=== PATIENT | female | born 1995 | race Caucasian/White ===

== ENCOUNTER 2020-01-05 13:14 | Emergency (ER) | payer SELFPAY ==
--- NOTE | 2020-01-05 13:20 | NUR ---
At [facility] window, pt asked, "I'm not being admitted to the emergency room, right?" We informed her that this was the emergency room. She stated that she is supposed to go to clinic. Pt lwbs.
--- OUTSIDE RECORDS SUMMARY | 2020-01-05 14:56 | XMS REPORT ---
Author Author Dash Rouse Doctor Organization [facility] Address Unknown Phone Unavailable Care Team Providers Care Fabricator [employer] Name Role Phone Migration, Doctor Unavailable Unavailable PROBLEMS Type Condition ICD9-CM Code EAW46-BT Code Onset Dates Condition S tatus SNOMED Code Problem Obsessive-compulsive behavior R46.81 Active 55054081 Problem Functional diarrhea K59.1 Active 40840951 Problem Bilious vomiting with nausea R11.14 A ctive 02789868 Problem Depressive disorder F32.9 Active 10459054 Problem Anxiety F41.9 Active 65073701 Problem Mild intermittent asthma, unspecified whether complicated J45.20 Active 759987864 Problem Dysthymia F34.1 Active 20891158 Problem Anxiety disorder, unspecified F41.9 Active 438024548 Problem Headache associated with hormonal factors G44.89 Active 89138121 Problem Constipation K59.00 Active 0226827 8 ALLERGIES No Information ENCOUNTERS Encounter Location Date Diagnosis [facility] [address] [facility] [id number] [address] [place] [address] December, [address] [facility] [id number], [place] [address] December, [facility] [address] [facility] [id number] [address] [place] [address] Nov, Encounter for supervision of other normal in first trimester Z34.[address] [id number] [id number] Nov, [facility] [address] [facility] [id number] [address] [place] [address] Nov, Encounter for supervision of other normal in first trimester Z34.81 [facility] [address] [facility] [id number] [address] [place] [address] Oct, Encounter for supervision of other normal in first trimester Z34.81 and Depressive disorder F32.9 [facility] [address] [facility] [id number] [address] [place] [address] Jul, Mild intermittent asthma, un specified whether complicated J45.20 and Anxiety F41.9 [facility] [place] [address] [facility] [id number] [place] [id number] Apr, Depressive disorder F32.9 [facility] [place] [address] [facility] [id number] [place] [id number] Mar, [facility] [place] [address] [facility] [id number] [place] [id number] Feb, Urinary tract infection, site not specif ied N39.0 ; Hematuria, unspecified R31.9 and Dysuria R30.0 [facility] [place] [address] [facility] [id number] [place] [id number] Jan, Depressive disorder F32.9 and Anxiety di sorder, unspecified F41.9 [facility] [id number] [place] [address], [place] [id number] Nov, [facility] [place] [address] [facility] [id number] [place] [id number] Aug, Constipation K59.00 and Vaginitis N76.0 [facility] [address] [id number] [place] [id number] Jul, Diarrhea, unspecified type R19.7 [place] [id number] [place] [address], [place] [id number] Apr, Positive test Z32.01 [facility] [id number] [place] [address], [place] [id number] Mar, Concern about sexually transmitted disea se in female without diagnosis Z71.1 ; Vaginal lesion N89.8 and Vaginal candidiasis B37.3 [facility] [place] [address] [facility] [id number] [place] [id number] Jan, Headache associated with hormonal factor s G44.89 and History of unprotected sex Z72.51 [facility] [address] [id number] [place] [id number] 29 Mar, 2018 Acute left flank pain R10.9 ; Vaginal di scharge N89.8 ; Acute vaginitis N76.0 and Other specified bacterial agents as the cause of diseases classified elsewhere B96.89 [place] [id number] [place] [address], [place] [id number] Sep, Influenza J11.[address] [place] [address], [place] [id number] Feb, [place] [id number] [place] [address], [place] [id number] Feb, STD exposure Z20.2 ; Vaginal discharge N 89.8 ; GBS bacteriuria R82.71 ; Non- intractable vomiting with nausea, unspecified vomiting type R11.2 ; Anxiety disorder, unspecified F41.9 ; Reactive depression F32.9 ; Functional diarrhea K59.1 and Acute vaginitis N76.0 [place] [id number] [place] [address], [place] [id number] Jan, STD exposure Z20.2 and Dysthymia F34.1 [place] [id number] [place] [address], [place] [id number] Nov, Recent major surgery Z98.890 ; Pain R52 ; Constipation by delayed colonic transit K59.01 ; Anxiety F41.9 and Obsessive-compulsive behavior R46.81 [place] [id number] [place] [address], [place] [id number] Nov, [place] [id number] [place] [address], [place] [id number] Oct, Diarrhea, unspecified type R19.7 ; High risk sexual behavior Z72.51 ; Encounter for IUD removal Z30.432 ; STD exposure Z20.2 and Trichomoniasis A59.[address] [place] [address], [place] [id number] Oct, Dysuria R30.0 [place] [id number] [place] [address], [place] [id number] Oct, Dysuria R30.0 and Fever, unspecified R50 .9 [place] [id number] [place] [address], [place] [id number] 08 Sep, 2016 Stomach pain R10.9 ; Bilious vomiting wi th nausea R11.14 ; Functional diarrhea K59.1 ; Anxiety F41.9 ; Obsessive-compulsive behavior R46.81 and Poor fluid intake R63.8 [facility] [address] [facility] [id number] [place] [id number] Aug, [facility] [address] [id number] [place] [id number] Aug, Stomach pain R10.9 ; Bilious vomiting wi th nausea R11.14 ; Functional diarrhea K59.1 ; Anxiety F41.9 ; Obsessive-compulsive behavior R46.81 and Poor fluid intake R63.8 [facility] [address] [id number] [place] [id number] Jul, Vaginal discharge N89.8 and High risk se xual behavior Z72.51 [facility] [id number] [place] [address], [place] [id number] Mar, [facility] [address], [place] [id number] Mar, test negative Z32.02 [facility] [address] [id number] [place] [id number] Mar, Urinary tract infection, site not specif ied N39.0 [facility] [address] [id number] [place] [id number] December, Seasonal allergic reaction J30.2 and Cou gh R05 [place] [id number] [place] [address], [place] [id number] May, Bronchitis J40 ; Mild intermittent asthm a with acute exacerbation J45.21 and Reflux gastritis K29.60 [facility] [address] [id number] [place] [id number] May, [place] [address] [id number] [place] [address], [place] [id number] May, CAP (community acquired pneumonia) J18.9 [facility] [address] [id number] [place] [id number] Apr, Encounter for PPD test V74.1 [facility] [place] [address] [id number] [place] [id number] Apr, Encounter for PPD test V74.1 [facility] [place] [address] [id number] [place] [id number] Feb, Dysuria 788.1 and Bronchitis 490 [facility] [address] [facility] [id number] [address] [place] [address], [place] [address] Nov, [facility] [address] [id number] [address] [place] [address] Nov, [facility] [place] [address] [id number] [place] [id number] Sep, [facility] [address] [facility] [id number] [address] [place] [address], [place] [address] Sep, [facility] [address] [facility] [id number] [address] [place] [address], [place] [address] Jun, [facility] [place] [address] [id number] [place] [id number] Jun, [facility] [address] [facility] [id number] [address] [place] [address], [place] [address] Apr, [facility] [place] [address] [id number] [place] [id number] Apr, [facility] [address] [facility] [id number] [address] [place] [address], [place] [address] Apr, [facility] [place] [address] [id number] [place] [id number] Mar, [facility] [address] [facility] [id number] [address] [place] [address], [place] [address] Mar, [facility] [place] [address] [id number] [place] [id number] Feb, [facility] [address] [facility] [id number] [address] [place] [address], [place] [address] Feb, [facility] [address] [facility] [id number] [address] [place] [address], [place] [address] December, [facility] [address] [id number] [address] [place] [address], [place] [address] Nov, [facility] [place] [address] [id number] [place] [id number] Nov, [facility] [address] [id number] [address] [place] [address], [place] [address] Nov, [facility] [place] [address] [id number] [place] [id number] Sep, [facility] [address] [id number] [address] [place] [address], [place] [address] Sep, [facility] [address] [facility] [id number] [address] [place] [address], [place] [address] Sep, [facility] [address] [facility] [id number] [address] [place] [address], [place] [address] Sep, [facility] [place] [address] [id number] [place] [id number] Sep, [facility] [address] [facility] [id number] [address] [place] [address], [place] [address] Sep, [facility] [address] [facility] [id number] [address] [place] [address], [place] [address] May, [facility] [place] [address] [id number] [place] [id number] May, [facility] [address] [facility] [id number] [address] [place] [address], [place] [address] May, [facility] [place] [address] [id number] [place] [id number] Apr, [facility] [address] [id number] [address] [place] [address], [place] [address] Feb, [facility] [place] [address] [id number] [place] [id number] Feb, [facility] [place] [address] [id number] [place] [id number] Jul, [facility] [address] [facility] [id number] [place] [address] Jul, [facility] [address] [facility] [id number] [place] [id number] Jul, [facility] [address] [facility] [id number] [address] [address] Jul, [facility] [address] [facility] [id number] [place], [place] [id number] Mar, [facility] [address] [facility] [id number] [place] [id number] Jan, IMMUNIZATIONS No Known Immunizations SOCIAL HISTORY Never Assessed REASON FOR VISIT PLAN OF CARE VITAL SIGNS Height 63 in 2012-02-02 Weight 110.38 lbs 2012-02-02 Temperature 97.4 degrees Fahrenheit 2012-02-02 Heart Rate 72 bpm 2012-02-02 Respiratory Rate 16 2012-02-02 Blood pressure systolic 104 mmHg 2012-02-02 Blood pressure diastolic 72 mmHg 2012-02-02 MEDICATIONS Unknown Medications RESULTS No Results PROCEDURES Procedure Date Ordered Result Body Site CHYLMD TRACH, DNA, AMP PROBE February 02, 2012 URINE TEST February 02, 2012 INSTRUCTIONS MEDICATIONS ADMINISTERED No Known Medications MEDICAL (GENERAL) HISTORY Type Description Date Medical History depression Medical History right ovarian cyst Surgical History colonoscopy and EGD, normal results 2014 Surgical History at [facility] left ovarian cyst drained 11/2016 Hospitalization History pneumonia Hospitalization History Was in hospital in [place] about 3 months ago for vomiting-dehydration Hospitalization History Child
--- OUTSIDE RECORDS SUMMARY | 2020-01-05 14:56 | XMS REPORT ---
Author Author Nasim, Dash Doctor Organization [facility] Address Unknown Phone Unavailable Care Team Providers Care Checker [employer] Name Role Phone Migration, Doctor Unavailable Unavailable PROBLEMS Type Condition ICD9-CM Code [id number] Code Onset Dates Condition S tatus SNOMED Code Problem Obsessive-compulsive behavior R46.81 Active 19016200 Problem Functional diarrhea K59.1 Active 38983916 Problem Bilious vomiting with nausea R11.14 A ctive 35126176 Problem Depressive disorder F32.9 Active 22169085 Problem Anxiety F41.9 Active 30528427 Problem Mild intermittent asthma, unspecified whether complicated J45.20 Active 573519129 Problem Dysthymia F34.1 Active 49425203 Problem Anxiety disorder, unspecified F41.9 Active 471690745 Problem Headache associated with hormonal factors G44.89 Active 35404078 Problem Constipation K59.00 Active 1762420 8 ALLERGIES No Information ENCOUNTERS Encounter Location Date Diagnosis [facility] [address] [facility] [id number] [address] [place] [address] Jul, Mild intermittent asthma, un specified whether complicated J45.20 and Anxiety F41.[address] [id number] Apr, Depressive disorder F32.[address] [id number] Mar, [address] [id number] Feb, Urinary tract infection, site not specified N39.0 ; Hematuria, unspecified R31.9 and Dysuria R30.[address] [id number] Jan, Depressive disorder F32.9 and Anxiety disorder, unspecified F41.[address] [id number] Nov, [facility] [place] [id number] 10 Aug, 2018 Constipation K59.00 and Vaginitis N76.[address] [id number] Jul, Diarrhea, unspecified type R19.[address] [id number] Apr, Positive test Z32.[address] [id number] Mar, Concern about sexually transmitted disease in female without diagnosis Z71.1 ; Vaginal lesion N89.8 and Vaginal candidiasis B37.[address] [id number] Jan, Headache associated with hormonal factors G44.89 and History of unprotected sex Z72.[address] [id number] Oct, Acute left flank pain R10.9 ; Vaginal discharge N89.8 ; Acute vaginitis N76.0 and Other specified bacterial agents as the cause of diseases classified elsewhere B96.[address] [id number] Sep, Influenza J11.[address] [id number] Feb, [address] [id number] Feb, STD exposure Z20.2 ; Vaginal discharge N89.8 ; GBS bacteriuria R82.71 ; Non- intractable vomiting with nausea, unspecified vomiting type R11.2 ; Anxiety disorder, unspecified F41.9 ; Reactive depression F32.9 ; Functional diarrhea K59.1 and Acute vaginitis N76.[address] [id number] Jan, STD exposure Z20.2 and Dysthymia F34.[address] [id number] Nov, Recent major surgery Z98.890 ; Pain R52 ; Constipation by delayed colonic transit K59.01 ; Anxiety F41.9 and Obsessive-compulsive behavior R46.[address] [id number] Nov, [address] [id number] Oct, Diarrhea, unspecified type R19.7 ; High risk sexual behavior Z72.51 ; Encounter for IUD removal Z30.432 ; STD exposure Z20.2 and Trichomoniasis A59.[address] [id number] Oct, Dysuria R30.[address] [id number] Oct, Dysuria R30.0 and Fever, unspecified R50.[address] [id number] Sep, Stomach pain R10.9 ; Bilious vomiting with nausea R11.14 ; Functional diarrhea K59.1 ; Anxiety F41.9 ; Obsessive-compulsive behavior R46.81 and Poor fluid intake R63.[address] [id number] Aug, [address] [id number] Aug, Stomach pain R10.9 ; Bilious vomiting with nausea R11.14 ; Functional diarrhea K59.1 ; Anxiety F41.9 ; Obsessive-compulsive behavior R46.81 and Poor fluid intake R63.[address] [id number] Jul, Vaginal discharge N89.8 and High risk sexual behavior Z72.[address] [id number] Mar, [address] [id number] Mar, test negative Z32.[address] [id number] Mar, Urinary tract infection, site not specified N39.[address] [id number] December, Seasonal allergic reaction J30.2 and Cough R05 [address] [id number] May, Bronchitis J40 ; Mild intermittent asthma with acute exacerbation J45.21 and Reflux gastritis K29.[address] [id number] May, [address] [id number] May, CAP (community acquired pneumonia) J18.[address] [id number] Apr, Encounter for PPD test V74.[address] [id number] Apr, Encounter for PPD test V74.[address] [id number] Feb, Dysuria 788.1 and Bronchitis 490 [facility] [address] [address] Nov, [facility] [address] [address] Nov, [address] [id number] Sep, [facility] [address] [address] Sep, [facility] [address] [address] Jun, [address] [id number] Jun, [facility] [address] [address] Apr, [address] [id number] Apr, [facility] [address] [address] Apr, [facility] [place] [address] [id number] [place] [id number] Mar, [facility] [address] [id number] [place] [address] Mar, [facility] [place] [address] [id number] [place] [id number] Feb, [facility] [address] [id number] [place] [address] Feb, [facility] [address] [id number] [place] [address] December, [facility] [address] [id number] [place] [address] Nov, [facility] [place] [address] [place] [id number] [id number] Nov, [facility] [address] [id number] [place] [address] Nov, [facility] [place] [address] [id number] [id number] Sep, [facility] [address] [id number] [place] [address] Sep, [facility] [address] [id number] [place] [address] Sep, [facility] [address] [id number] [place] [address] Sep, [facility] [place] [address] [address] [id number] [id number] Sep, [facility] [address] [id number] [place] [address] Sep, [facility] [address] [id number] [place] [address] May, [facility] [place] [address] [address] [id number] [id number] May, [facility] [address] [id number] [place] [address] May, [facility] [address] [id number] [place] [id number] Apr, [facility] [address] [id number] [place] [address] Feb, [place] [id number] [place] [address] [id number] Feb, [place] [id number] [place] [address] [id number] Jul, [facility] [address] [address] Jul, [place] [id number] [place] [address] [id number] Jul, [facility] [address] [address] Jul, [address] [place] [address] [id number] Mar, [place] [id number] [place] [address] [id number] Jan, IMMUNIZATIONS No Known Immunizations SOCIAL HISTORY Never Assessed REASON FOR VISIT PLAN OF CARE VITAL SIGNS MEDICATIONS No Known Medications RESULTS No Results PROCEDURES No Known procedures INSTRUCTIONS MEDICATIONS ADMINISTERED No Known Medications MEDICAL (GENERAL) HISTORY Type Description Date Medical History depression Medical History right ovarian cyst Surgical History colonoscopy and EGD, normal results 2014 Surgical History at [facility] left ovarian cyst drained 11/2016 Hospitalization History pneumonia Hospitalization History Was in hospital in [place] about 3 months ago for vomiting-dehydration Hospitalization History Child
--- OUTSIDE RECORDS SUMMARY | 2020-01-05 14:56 | XMS REPORT ---
Author Author Dash Enrique Organization [facility] Address [address] [place] [address] Care Team Providers Care County Commissioner Name Role Phone KRISTEN Enrique Unavailable PROBLEMS Type Condition ICD9-CM Code IJL81-BP Code Onset Dates Condition S tatus SNOMED Code Problem Obsessive-compulsive behavior R46.81 Active 86708897 Problem Functional diarrhea K59.1 Active 37554922 Problem Bilious vomiting with nausea R11.14 A ctive 51233831 Problem Depressive disorder F32.9 Active 81593085 Problem Anxiety F41.9 Active 32860910 Problem Mild intermittent asthma, unspecified whether complicated J45.20 Active 542858983 Problem Dysthymia F34.1 Active 05439221 Problem Anxiety disorder, unspecified F41.9 Active 724565185 Problem Headache associated with hormonal factors G44.89 Active 69386395 Problem Constipation K59.00 Active 7823057 8 ALLERGIES No Information ENCOUNTERS Encounter Location Date Diagnosis [facility] [address] [facility] [id number] [address] [place] [address] Jul, Mild intermittent asthma, un specified whether complicated J45.20 and Anxiety F41.[address] [id number] Apr, Depressive disorder F32.[address] [id number] Mar, [address] [id number] Feb, Urinary tract infection, site not specified N39.0 ; Hematuria, unspecified R31.9 and Dysuria R30.[address] [id number] Jan, Depressive disorder F32.9 and Anxiety disorder, unspecified F41.[address] [id number] Nov, [address] [id number] Aug, Constipation K59.00 and Vaginitis N76.[address] [id number] Jul, Diarrhea, unspecified type R19.[address] [id number] Apr, Positive test Z32.[address] [id number] Mar, Concern about sexually transmitted disease in female without diagnosis Z71.1 ; Vaginal lesion N89.8 and Vaginal candidiasis B37.[address] [id number] Jan, Headache associated with hormonal factors G44.89 and History of unprotected sex Z72.[address] [id number] Oct, Acute left flank pain R10.9 ; Vaginal discharge N89.8 ; Acute vaginitis N76.0 and Other specified bacterial agents as the cause of diseases classified elsewhere B96.[address] [id number] Sep, Influenza J11.[address] [id number] Feb, [address] [id number] Feb, STD exposure Z20.2 ; Vaginal discharge N89.8 ; GBS bacteriuria R82.71 ; Non- intractable vomiting with nausea, unspecified vomiting type R11.2 ; Anxiety disorder, unspecified F41.9 ; Reactive depression F32.9 ; Functional diarrhea K59.1 and Acute vaginitis N76.[address] [id number] Jan, STD exposure Z20.2 and Dysthymia F34.[address] [id number] Nov, Recent major surgery Z98.890 ; Pain R52 ; Constipation by delayed colonic transit K59.01 ; Anxiety F41.9 and Obsessive-compulsive behavior R46.[address] [id number] Nov, [address] [id number] Oct, Diarrhea, unspecified type R19.7 ; High risk sexual behavior Z72.51 ; Encounter for IUD removal Z30.432 ; STD exposure Z20.2 and Trichomoniasis A59.[address] [id number] Oct, Dysuria R30.[address] [id number] Oct, Dysuria R30.0 and Fever, unspecified R50.[address] [id number] Sep, Stomach pain R10.9 ; Bilious vomiting with nausea R11.14 ; Functional diarrhea K59.1 ; Anxiety F41.9 ; Obsessive-compulsive behavior R46.81 and Poor fluid intake R63.[address] [id number] Aug, [address] [id number] Aug, Stomach pain R10.9 ; Bilious vomiting with nausea R11.14 ; Functional diarrhea K59.1 ; Anxiety F41.9 ; Obsessive-compulsive behavior R46.81 and Poor fluid intake R63.[address] [id number] Jul, Vaginal discharge N89.8 and High risk sexual behavior Z72.[address] [id number] Mar, [address] [id number] Mar, test negative Z32.[address] [place] [id number] Mar, Urinary tract infection, site not specified N39.[address] [id number] December, Seasonal allergic reaction J30.2 and Cough R05 [address] [id number] May, Bronchitis J40 ; Mild intermittent asthma with acute exacerbation J45.21 and Reflux gastritis K29.[address] [id number] May, [address] [id number] May, CAP (community acquired pneumonia) J18.[address] [id number] 08 Apr, 2015 Encounter for PPD test V74.[address] [id number] Apr, Encounter for PPD test V74.[address] [id number] Feb, Dysuria 788.[address] [facility] [address] [address] Nov, [facility] [address] [address] Nov, [address] [id number] Sep, [facility] [address] [address] Sep, [facility] [address] [address] Jun, [address] [id number] Jun, [facility] [address] [address] Apr, [address] [id number] Apr, [facility] [address] [facility] [place] [address] Apr, [facility] [place] [address] [id number] [id number] Mar, [facility] [address] [facility] [place] [address] Mar, [facility] [place] [address] [id number] [id number] Feb, [facility] [id number] [place] [address] Feb, [facility] [id number] [place] [address] December, [facility] [id number] [place] [address] Nov, [facility] [address] [id number] [id number] Nov, [facility] [id number] [place] [address] Nov, [facility] [place] [address] [id number] [id number] Sep, [facility] [id number] [place] [address] Sep, [facility] [id number] [place] [address] Sep, [facility] [id number] [place] [address] Sep, [facility] [place] [address] [id number] [id number] Sep, [facility] [id number] [place] [address] Sep, [facility] [id number] [place] [address] May, [facility] [place] [address] [id number] [address] May, [facility] [address] [facility] [place] [address] May, [facility] [address] [facility] [id number] Apr, [facility] [id number] [place] [address] Feb, [facility] [address] [facility] [id number] Feb, [facility] [id number] [place] [id number] Jul, [facility] [id number] [place] [address] Jul, [facility] [address] [id number] [id number] Jul, [facility] [address] [facility] [place] [address] Jul, [facility] [address] [facility] [address] Mar, [facility] [address] [facility] [id number] Jan, IMMUNIZATIONS No Known Immunizations SOCIAL HISTORY Never Assessed REASON FOR VISIT PLAN OF CARE VITAL SIGNS Height 63 in 2013-09-29 Weight 113.2 lbs 2013-09-29 Temperature 98.2 degrees Fahrenheit 2013-09-29 Heart Rate 64 bpm 2013-09-29 Respiratory Rate 10 2013-09-29 Blood pressure systolic 108 mmHg 2013-09-29 Blood pressure diastolic 60 mmHg 2013-09-29 MEDICATIONS No Known Medications RESULTS No Results PROCEDURES Procedure Date Ordered Result Body Site URINE TEST Sep 29, 2013 URINALYSIS, AUTO, W/O SCOPE Sep 29, 2013 INSTRUCTIONS MEDICATIONS ADMINISTERED No Known Medications MEDICAL (GENERAL) HISTORY Type Description Date Medical History depression Medical History right ovarian cyst Surgical History colonoscopy and EGD, normal results 2014 Surgical History at [facility] left ovarian cyst drained 11/2016 Hospitalization History pneumonia Hospitalization History Was in hospital in [place] about 3 months ago for vomiting-dehydration Hospitalization History Child
--- OUTSIDE RECORDS SUMMARY | 2020-01-05 14:56 | XMS REPORT ---
Author Author Dash Rouse Doctor Organization [facility] Address Unknown Phone Unavailable Care Team Providers Care Analysis Consultant Name Role Phone Migration, Doctor Unavailable Unavailable PROBLEMS Type Condition ICD9-CM Code ARI88-LT Code Onset Dates Condition S tatus SNOMED Code Problem Obsessive-compulsive behavior R46.81 Active 80826174 Problem Functional diarrhea K59.1 Active 89972610 Problem Bilious vomiting with nausea R11.14 A ctive 48186771 Problem Depressive disorder F32.9 Active 50976678 Problem Anxiety F41.9 Active 75617413 Problem Mild intermittent asthma, unspecified whether complicated J45.20 Active 434804799 Problem Dysthymia F34.1 Active 04226012 Problem Anxiety disorder, unspecified F41.9 Active 044028348 Problem Headache associated with hormonal factors G44.89 Active 15348536 Problem Constipation K59.00 Active 4965649 8 ALLERGIES No Information ENCOUNTERS Encounter Location Date Diagnosis [facility] [address] [facility] [id number] [address] [place] [address] December, [facility] [address] [facility] [id number] [address] [place] [address] Nov, [id number] [place] [id number] Nov, [facility] [address] [facility] [id number] [address] [place] [address] Nov, Encounter for supervision of other normal in first trimester Z34.81 [facility] [address] [facility] [id number] [address] [place] [address] Oct, Encounter for supervision of other normal in first trimester Z34.81 and Depressive disorder F32.9 [facility] [address] [facility] [id number] [address] [place] [address] Jul, Mild intermittent asthma, un specified whether complicated J45.20 and Anxiety F41.9 [facility] [address] [facility] [id number] [place] [id number] Apr, Depressive disorder F32.9 [facility] [address] [facility] [id number] [place] [id number] Mar, [facility] [id number] [place] [address], [place] [id number] Feb, Urinary tract infection, site not specif ied N39.0 ; Hematuria, unspecified R31.9 and Dysuria R30.0 [facility] [address] [facility] [id number] [place] [id number] Jan, Depressive disorder F32.9 and Anxiety di sorder, unspecified F41.9 [facility] [id number] [place] [address], [place] [id number] Nov, [place] [id number] [place] [address], [place] [id number] Aug, Constipation K59.00 and Vaginitis N76.0 [facility] [id number] [place] [address], [place] [id number] Jul, Diarrhea, unspecified type R19.7 [place] [id number] [place] [address], [place] [id number] Apr, Positive test Z32.01 [place] [id number] [place] [address], [place] [id number] Mar, Concern about sexually transmitted disea se in female without diagnosis Z71.1 ; Vaginal lesion N89.8 and Vaginal candidiasis B37.3 [facility] [id number] [place] [address], [place] [id number] Jan, Headache associated with hormonal factor s G44.89 and History of unprotected sex Z72.51 [place] [id number] [place] [address], [place] [id number] Oct, Acute left flank pain R10.9 ; Vaginal di scharge N89.8 ; Acute vaginitis N76.0 and Other specified bacterial agents as the cause of diseases classified elsewhere B96.89 [facility] [id number] [place] [id number] Sep, Influenza J11.1 [address] [place] [id number] [place] [id number] Feb, [id number] [place] [address], [place] [id number] Feb, STD exposure Z20.2 ; Vaginal discharge N 89.8 ; GBS bacteriuria R82.71 ; Non- intractable vomiting with nausea, unspecified vomiting type R11.2 ; Anxiety disorder, unspecified F41.9 ; Reactive depression F32.9 ; Functional diarrhea K59.1 and Acute vaginitis N76.0 [id number] [place] [address], [place] [id number] Jan, STD exposure Z20.2 and Dysthymia F34.1 [id number] [place] [address], [place] [id number] Nov, Recent major surgery Z98.890 ; Pain R52 ; Constipation by delayed colonic transit K59.01 ; Anxiety F41.9 and Obsessive-compulsive behavior R46.[address] [place] [address], [place] [id number] Nov, [id number] [place] [address], [place] [id number] Oct, Diarrhea, unspecified type R19.7 ; High risk sexual behavior Z72.51 ; Encounter for IUD removal Z30.432 ; STD exposure Z20.2 and Trichomoniasis A59.[address] [id number] Oct, Dysuria R30.0 [address] [place] [address], [place] [id number] Oct, Dysuria R30.0 and Fever, unspecified R50 .9 [id number] [place] [address], [place] [id number] Sep, Stomach pain R10.9 ; Bilious vomiting wi th nausea R11.14 ; Functional diarrhea K59.1 ; Anxiety F41.9 ; Obsessive-compulsive behavior R46.81 and Poor fluid intake R63.8 [facility] [address] [id number] [place] [id number] Aug, [facility] [address] [facility] [id number] [place] [id number] Aug, Stomach pain R10.9 ; Bilious vomiting wi th nausea R11.14 ; Functional diarrhea K59.1 ; Anxiety F41.9 ; Obsessive-compulsive behavior R46.81 and Poor fluid intake R63.8 [facility] [address] [facility] [id number] [place] [id number] Jul, Vaginal discharge N89.8 and High risk se xual behavior Z72.51 [facility] [id number] [place] [address], [place] [id number] Mar, [facility] [address] [id number] [place] [id number] Mar, test negative Z32.02 [facility] [id number] [place] [address], [place] [id number] Mar, Urinary tract infection, site not specif ied N39.0 [facility] [address] [id number] [place] [id number] December, Seasonal allergic reaction J30.2 and Cou gh R05 [facility] [address] [id number] [place] [id number] May, Bronchitis J40 ; Mild intermittent asthm a with acute exacerbation J45.21 and Reflux gastritis K29.60 [facility] [address] [facility] [id number] [place] [id number] May, [facility] [address] [facility] [id number] [place] [id number] May, CAP (community acquired pneumonia) J18.9 [facility] [address] [facility] [id number] [place] [id number] Apr, Encounter for PPD test V74.1 [facility] [address] [id number] [place] [id number] Apr, Encounter for PPD test V74.1 [facility] [address] [facility] [id number] [place] [id number] Feb, Dysuria 788.1 and Bronchitis 490 [facility] [address] [facility] [id number] [address] [place] [address], [place] [address] Nov, [facility] [address] [facility] [id number] [address] [place] [address], [place] [address] Nov, [facility] [place] [address] [id number] [place] [id number] Sep, [facility] [address] [id number] [address] [place] [address], [place] [address] Sep, [facility] [address] [facility] [id number] [address] [place] [address], [place] [address] Jun, [facility] [address] [facility] [id number] [place] [id number] Jun, [facility] [address] [facility] [id number] [address] [place] [address], [place] [address] Apr, [facility] [address] [facility] [id number] [place] [id number] Apr, [facility] [address] [facility] [id number] [address] [place] [address], [place] [address] Apr, [facility] [address] [facility] [id number] [place] [id number] Mar, [facility] [address] [facility] [id number] [address] [place] [address], [place] [address] Mar, [facility] [address] [facility] [id number] [place] [id number] Feb, [facility] [address] [facility] [id number] [address] [place] [address], [place] [address] Feb, [facility] [address] [facility] [id number] [address] [place] [address], [place] [address] December, [facility] [address] [facility] [id number] [address] [place] [address], [place] [address] Nov, [facility] [place] [address] [facility] [id number] [place] [id number] Nov, [facility] [address] [id number] [address] [place] [address], [place] [address] Nov, [facility] [place] [address] [id number] [place] [id number] Sep, [facility] [address] [facility] [id number] [address] [place] [address], [place] [address] Sep, [facility] [address] [id number] [address] [place] [address], [place] [address] Sep, [facility] [address] [facility] [id number] [address] [place] [address], [place] [address] Sep, [facility] [place] [address] [id number] [place] [id number] Sep, [facility] [address] [facility] [id number] [address] [place] [address], [place] [address] Sep, [facility] [address] [facility] [id number] [address] [place] [address], [place] [address] May, [facility] [address] [id number] [place] [id number] May, [facility] [address] [facility] [id number] [address] [place] [address], [place] [address] May, [facility] [address] [id number] [place] [id number] Apr, [facility] [address] [id number] [address] [place] [address], [place] [address] Feb, [facility] [address] [id number] [place] [id number] Feb, [facility] [place] [address] [id number] [place] [id number] Jul, [facility] [address] [id number] [address] [place] [address], [place] [address] Jul, [facility] [place] [address] [id number] [place] [id number] Jul, [facility] [address] [facility] [id number] [address] [place] [address] Jul, [facility] [address] [facility] [id number] [facility] S [id number] Mar, [facility] [address] [facility] [id number] [facility] [id number] Jan, IMMUNIZATIONS No Known Immunizations SOCIAL HISTORY Never Assessed REASON FOR VISIT PLAN OF CARE VITAL SIGNS MEDICATIONS Unknown Medications RESULTS No Results PROCEDURES Procedure Date Ordered Result Body Site CULTURE, BACTERIA, OTHER May 08, 2014 INSTRUCTIONS MEDICATIONS ADMINISTERED No Known Medications MEDICAL (GENERAL) HISTORY Type Description Date Medical History depression Medical History right ovarian cyst Surgical History colonoscopy and EGD, normal results 2014 Surgical History at [facility] left ovarian cyst drained 11/2016 Hospitalization History pneumonia Hospitalization History Was in hospital in [place] about 3 months ago for vomiting-dehydration Hospitalization History Child
--- OUTSIDE RECORDS SUMMARY | 2020-01-05 14:56 | XMS REPORT ---
Author Author Dash Enrique Organization [facility] Address [address] [place] [address] Care Team Providers Care Elephant Keeper Name Role Phone KRISTEN Enrique Unavailable PROBLEMS Type Condition ICD9-CM Code [id number] Code Onset Dates Condition S tatus SNOMED Code Problem Obsessive-compulsive behavior R46.81 Active 45301923 Problem Functional diarrhea K59.1 Active 18050189 Problem Bilious vomiting with nausea R11.14 A ctive 61792383 Problem Depressive disorder F32.9 Active 24361228 Problem Anxiety F41.9 Active 83344331 Problem Mild intermittent asthma, unspecified whether complicated J45.20 Active 692196186 Problem Dysthymia F34.1 Active 62370572 Problem Anxiety disorder, unspecified F41.9 Active 827009992 Problem Headache associated with hormonal factors G44.89 Active 48471576 Problem Constipation K59.00 Active 6371404 8 ALLERGIES No Information ENCOUNTERS Encounter Location Date Diagnosis [facility] [address] [facility] [id number] [address] [place] [address] Nov, Encounter for supervision of other normal in first trimester Z34.[id number] [place] [address] [id number] Nov, [facility] [address] [id number] [address] [place] [address] Nov, Encounter for supervision of other normal in first trimester Z34.81 [facility] [address] [facility] [id number] [address] [place] [address] Oct, Encounter for supervision of other normal in first trimester Z34.81 and Depressive disorder F32.9 [facility] [address] [facility] [id number] [address] [place] [address] Jul, Mild intermittent asthma, un specified whether complicated J45.20 and Anxiety F41.9 [facility] [id number] [place] [id number] Apr, Depressive disorder F32.9 [facility] [address] [id number] [place] [address], [place] [id number] Mar, [facility] [id number] [place] [address], [place] [id number] Feb, Urinary tract infection, site not specif ied N39.0 ; Hematuria, unspecified R31.9 and Dysuria R30.0 [facility] [id number] [place] [address], [place] [id number] Jan, Depressive disorder F32.9 and Anxiety di sorder, unspecified F41.9 [facility] [id number] [place] [address], [place] [id number] Nov, [place] [address], [place] [id number] Aug, Constipation K59.00 and Vaginitis N76.0 [facility] [id number] [place] [address], [place] [id number] Jul, Diarrhea, unspecified type R19.7 [facility] [id number] [place] [address], [place] [id number] Apr, Positive test Z32.01 [place] [id number] [place] [address], [place] [id number] Mar, Concern about sexually transmitted disea se in female without diagnosis Z71.1 ; Vaginal lesion N89.8 and Vaginal candidiasis B37.3 [facility] [id number] [place] [id number] Jan, Headache associated with hormonal factor s G44.89 and History of unprotected sex Z72.51 [facility] [address] [id number] [place] [id number] Oct, Acute left flank pain R10.9 ; Vaginal di scharge N89.8 ; Acute vaginitis N76.0 and Other specified bacterial agents as the cause of diseases classified elsewhere B96.89 [facility] [address] [id number] [place] [id number] Sep, Influenza J11.1 [place] [id number] [place] [address], [place] [id number] Feb, [place] [address] [id number] [place] [address], [place] [id number] Feb, STD exposure Z20.2 ; Vaginal discharge N 89.8 ; GBS bacteriuria R82.71 ; Non- intractable vomiting with nausea, unspecified vomiting type R11.2 ; Anxiety disorder, unspecified F41.9 ; Reactive depression F32.9 ; Functional diarrhea K59.1 and Acute vaginitis N76.0 [place] [id number] [place] [address], [place] [id number] Jan, STD exposure Z20.2 and Dysthymia F34.1 [place] [id number] [place] [address], [place] [id number] Nov, Recent major surgery Z98.890 ; Pain R52 ; Constipation by delayed colonic transit K59.01 ; Anxiety F41.9 and Obsessive-compulsive behavior R46.[address] [place] [address], [place] [id number] Nov, [place] [id number] [place] [address], [place] [id number] Oct, Diarrhea, unspecified type R19.7 ; High risk sexual behavior Z72.51 ; Encounter for IUD removal Z30.432 ; STD exposure Z20.2 and Trichomoniasis A59.9 [place] [id number] [place] [id number] Oct, Dysuria R30.0 [address] [place] [address], [place] [id number] Oct, Dysuria R30.0 and Fever, unspecified R50 .9 [place] [address] [place] [id number] [place] [id number] Sep, Stomach pain R10.9 ; Bilious vomiting wi th nausea R11.14 ; Functional diarrhea K59.1 ; Anxiety F41.9 ; Obsessive-compulsive behavior R46.81 and Poor fluid intake R63.8 [facility] [address] [facility] [id number] [place] [id number] Aug, [facility] [address] [facility] [id number] [place] [id number] Aug, Stomach pain R10.9 ; Bilious vomiting wi th nausea R11.14 ; Functional diarrhea K59.1 ; Anxiety F41.9 ; Obsessive-compulsive behavior R46.81 and Poor fluid intake R63.8 [facility] [address] [facility] [id number] [place] [id number] Jul, Vaginal discharge N89.8 and High risk se xual behavior Z72.51 [facility] [address] [facility] [id number] [place] [id number] Mar, [facility] [address] [place] [id number] [place] [address], [place] [id number] Mar, test negative Z32.02 [facility] [address] [id number] [place] [id number] Mar, Urinary tract infection, site not specif ied N39.0 [facility] [address] [id number] [place] [id number] December, Seasonal allergic reaction J30.2 and Cou gh R05 [facility] [address] [facility] [id number] [place] [id number] May, Bronchitis J40 ; Mild intermittent asthm a with acute exacerbation J45.21 and Reflux gastritis K29.60 [facility] [address] [facility] [id number] [place] [id number] May, [facility] [address] [facility] [id number] [place] [id number] May, CAP (community acquired pneumonia) J18.9 [facility] [address] [facility] [id number] [place] [id number] 08 Apr, 2015 Encounter for PPD test V74.1 [facility] [address] [facility] [id number] [place] [id number] Apr, Encounter for PPD test V74.1 [facility] [place] [address] [id number] [place] [id number] Feb, Dysuria 788.1 and Bronchitis 490 [facility] [address] [facility] [id number] [address] [place] [address] Nov, [facility] [address] [id number] [address] [place] [address] Nov, [facility] [place] [address] [id number] [place] [id number] Sep, [facility] [address] [id number] [address] [place] [address], [place] [address] Sep, [facility] [address] [facility] [id number] [address] [place] [address] Jun, [facility] [place] [address] [id number] [place] [id number] Jun, [facility] [address] [facility] [id number] [address] [place] [address] Apr, [facility] [place] [address] [id number] [place] [id number] Apr, [facility] [address] [facility] [id number] [address] [place] [address] Apr, [facility] [place] [address] [id number] [place] [id number] Mar, [facility] [address] [facility] [id number] [address] [place] [address] Mar, [facility] [place] [address] [id number] [place] [id number] Feb, [facility] [address] [facility] [id number] [address] [place] [address] Feb, [facility] [address] [facility] [id number] [address] [place] [address] December, [facility] [address] [facility] [id number] [address] [place] [address] Nov, [facility] [place] [address] [id number] [place] [id number] Nov, [facility] [address] [id number] [address] [place] [address], [place] [address] Nov, [facility] [place] [address] [id number] [place] [id number] Sep, [facility] [address] [id number] [address] [place] [address], [place] [address] Sep, [facility] [address] [id number] [address] [place] [address], [place] [address] Sep, [facility] [address] [id number] [address] [place] [address], [place] [address] Sep, [facility] [place] [address] [id number] [place] [id number] Sep, [facility] [address] [facility] [id number] [address] [place] [address], [place] [address] Sep, [facility] [address] [facility] [id number] [address] [place] [address], [place] [address] May, [facility] [place] [address] [id number] [place] [id number] May, [facility] [address] [facility] [id number] [address] [place] [address], [place] [address] May, [facility] [place] [address] [id number] [place] [id number] Apr, [facility] [address] [id number] [address] [place] [address], [place] [address] Feb, [facility] [place] [address] [id number] [place] [id number] Feb, [facility] [place] [address] [id number] [place] [id number] Jul, [facility] [address] [id number] [address] [place] [address], [place] [address] Jul, [facility] [place] [address] [id number] [place], [place] [id number] Jul, [facility] [address] [id number] [address] [place] [address] Jul, [facility] [place] [address] [facility] [id number] [place] [id number] Mar, [facility] [address] [facility] [id number] [place] [id number] Jan, IMMUNIZATIONS No Known Immunizations SOCIAL HISTORY Never Assessed REASON FOR VISIT PLAN OF CARE VITAL SIGNS Height 63 in 2013-05-13 Weight 112 lbs 2013-05-13 Temperature 98.4 degrees Fahrenheit 2013-05-13 Heart Rate 72 bpm 2013-05-13 Respiratory Rate 16 2013-05-13 Blood pressure systolic 110 mmHg 2013-05-13 Blood pressure diastolic 68 mmHg 2013-05-13 MEDICATIONS Unknown Medications RESULTS No Results PROCEDURES Procedure Date Ordered Result Body Site URINALYSIS, AUTO, W/O SCOPE May 13, 2013 INSTRUCTIONS MEDICATIONS ADMINISTERED No Known Medications MEDICAL (GENERAL) HISTORY Type Description Date Medical History depression Medical History right ovarian cyst Surgical History colonoscopy and EGD, normal results 2014 Surgical History at [facility] left ovarian cyst drained 11/2016 Hospitalization History pneumonia Hospitalization History Was in hospital in [place] about 3 months ago for vomiting-dehydration Hospitalization History Child
--- OUTSIDE RECORDS SUMMARY | 2020-01-05 14:56 | XMS REPORT ---
Author Author Nasim, Dash Doctor Organization [facility] Address Unknown Phone Unavailable Care Team Providers Care Gang Punch Operator Name Role Phone Migration, Doctor Unavailable Unavailable PROBLEMS Type Condition ICD9-CM Code [id number] Code Onset Dates Condition S tatus SNOMED Code Problem Obsessive-compulsive behavior R46.81 Active 61875870 Problem Functional diarrhea K59.1 Active 31559380 Problem Bilious vomiting with nausea R11.14 A ctive 98988157 Problem Depressive disorder F32.9 Active 45049523 Problem Anxiety F41.9 Active 07843582 Problem Mild intermittent asthma, unspecified whether complicated J45.20 Active 028046254 Problem Dysthymia F34.1 Active 83795871 Problem Anxiety disorder, unspecified F41.9 Active 201060589 Problem Headache associated with hormonal factors G44.89 Active 07342418 Problem Constipation K59.00 Active 8167126 8 ALLERGIES No Information ENCOUNTERS Encounter Location Date Diagnosis [facility] [address] [facility] [id number] [address] [place] [address] Jul, Mild intermittent asthma, un specified whether complicated J45.20 and Anxiety F41.[address] [id number] Apr, Depressive disorder F32.[address] [id number] Mar, [address] [id number] Feb, Urinary tract infection, site not specified N39.0 ; Hematuria, unspecified R31.9 and Dysuria R30.[address] [id number] Jan, Depressive disorder F32.9 and Anxiety disorder, unspecified F41.[address] [id number] Nov, [facility] [place] [id number] 10 Aug, 2018 Constipation K59.00 and Vaginitis N76.[address] [id number] Jul, Diarrhea, unspecified type R19.[address] [id number] Apr, Positive test Z32.[address] [id number] Mar, Concern about sexually transmitted disease in female without diagnosis Z71.1 ; Vaginal lesion N89.8 and Vaginal candidiasis B37.[address] [id number] Jan, Headache associated with hormonal factors G44.89 and History of unprotected sex Z72.[address] [id number] Oct, Acute left flank pain R10.9 ; Vaginal discharge N89.8 ; Acute vaginitis N76.0 and Other specified bacterial agents as the cause of diseases classified elsewhere B96.[address] [id number] Sep, Influenza J11.[address] [id number] Feb, [address] [id number] Feb, STD exposure Z20.2 ; Vaginal discharge N89.8 ; GBS bacteriuria R82.71 ; Non- intractable vomiting with nausea, unspecified vomiting type R11.2 ; Anxiety disorder, unspecified F41.9 ; Reactive depression F32.9 ; Functional diarrhea K59.1 and Acute vaginitis N76.[address] [id number] Jan, STD exposure Z20.2 and Dysthymia F34.[address] [id number] Nov, Recent major surgery Z98.890 ; Pain R52 ; Constipation by delayed colonic transit K59.01 ; Anxiety F41.9 and Obsessive-compulsive behavior R46.[address] [id number] Nov, [address] [id number] Oct, Diarrhea, unspecified type R19.7 ; High risk sexual behavior Z72.51 ; Encounter for IUD removal Z30.432 ; STD exposure Z20.2 and Trichomoniasis A59.[address] [id number] Oct, Dysuria R30.[address] [id number] Oct, Dysuria R30.0 and Fever, unspecified R50.[address] [id number] Sep, Stomach pain R10.9 ; Bilious vomiting with nausea R11.14 ; Functional diarrhea K59.1 ; Anxiety F41.9 ; Obsessive-compulsive behavior R46.81 and Poor fluid intake R63.[address] [id number] Aug, [address] [id number] Aug, Stomach pain R10.9 ; Bilious vomiting with nausea R11.14 ; Functional diarrhea K59.1 ; Anxiety F41.9 ; Obsessive-compulsive behavior R46.81 and Poor fluid intake R63.[address] [id number] Jul, Vaginal discharge N89.8 and High risk sexual behavior Z72.[address] [id number] Mar, [address] [id number] Mar, test negative Z32.[address] [id number] Mar, Urinary tract infection, site not specified N39.[address] [id number] December, Seasonal allergic reaction J30.2 and Cough R05 [address] [id number] May, Bronchitis J40 ; Mild intermittent asthma with acute exacerbation J45.21 and Reflux gastritis K29.[address] [id number] May, [address] [id number] May, CAP (community acquired pneumonia) J18.[address] [id number] Apr, Encounter for PPD test V74.[address] [id number] Apr, Encounter for PPD test V74.[address] [id number] Feb, Dysuria 788.[address] [facility] [address] [address] Nov, [facility] [address] [address] Nov, [address] [id number] Sep, [facility] [address] [address] Sep, [facility] [address] [address] Jun, [address] [id number] Jun, [facility] [address] [address] Apr, [address] [id number] Apr, [facility] [address] [address] Apr, [facility] [place] [address] [facility] [place] [id number] Mar, [facility] [address] [place] [id number] [place] [address] Mar, [facility] [place] [address] [facility] [place] [id number] Feb, [facility] [address] [id number] [place] [address] Feb, [facility] [address] [id number] [place] [address] December, [facility] [address] [id number] [place] [address] Nov, [facility] [place] [address] [place] [id number] [id number] Nov, [facility] [address] [id number] [place] [address] Nov, [facility] [place] [address] [place] [id number] [id number] Sep, [facility] [address] [id number] [place] [address] Sep, [facility] [address] [id number] [place] [address] Sep, [facility] [address] [id number] [place] [address] Sep, [facility] [place] [address] [id number] [id number] Sep, [facility] [address] [id number] [place] [address] Sep, [facility] [address] [id number] [place] [address] May, [facility] [place] [address] [id number] [id number] May, [facility] [address] [id number] [place] [address] May, [facility] [address] [facility] [place] [id number] Apr, [facility] [address] [facility] [place] [address] Feb, [facility] [address] [facility] [id number] Feb, [facility] [address] [facility] [id number] Jul, [facility] [address] [place] [id number] [place] [address] Jul, [facility] [address] [facility] [id number] Jul, [facility] [address] [id number] [place] [address] Jul, [facility] [address] [facility] [id number] Mar, [facility] [address] [id number] [place] [id number] Jan, IMMUNIZATIONS No Known Immunizations SOCIAL HISTORY Never Assessed REASON FOR VISIT PLAN OF CARE VITAL SIGNS Height 63 in 2013-12-13 Weight 111.5 lbs 2013-12-13 Temperature 98.4 degrees Fahrenheit 2013-12-13 Heart Rate 56 bpm 2013-12-13 Respiratory Rate 10 2013-12-13 Blood pressure systolic 102 mmHg 2013-12-13 Blood pressure diastolic 60 mmHg 2013-12-13 MEDICATIONS No Known Medications RESULTS No Results PROCEDURES Procedure Date Ordered Result Body Site URINE CULTURE/COLONY COUNT December 13, 2013 URINALYSIS, AUTO, W/O SCOPE December 13, 2013 INSTRUCTIONS MEDICATIONS ADMINISTERED No Known Medications MEDICAL (GENERAL) HISTORY Type Description Date Medical History depression Medical History right ovarian cyst Surgical History colonoscopy and EGD, normal results 2014 Surgical History at [facility] left ovarian cyst drained 11/2016 Hospitalization History pneumonia Hospitalization History Was in hospital in [place] about 3 months ago for vomiting-dehydration Hospitalization History Child
--- OUTSIDE RECORDS SUMMARY | 2020-01-05 14:56 | XMS REPORT ---
Author Author Nasim, Dash Doctor Organization [facility] Address Unknown Phone Unavailable Care Team Providers Care Wheel Truing Machine Tender Name Role Phone Migration, Doctor Unavailable Unavailable PROBLEMS Type Condition ICD9-CM Code KVS49-VY Code Onset Dates Condition S tatus SNOMED Code Problem Obsessive-compulsive behavior R46.81 Active 72939767 Problem Functional diarrhea K59.1 Active 82991005 Problem Bilious vomiting with nausea R11.14 A ctive 67238111 Problem Depressive disorder F32.9 Active 84661321 Problem Anxiety F41.9 Active 73305940 Problem Mild intermittent asthma, unspecified whether complicated J45.20 Active 709970791 Problem Dysthymia F34.1 Active 05376941 Problem Anxiety disorder, unspecified F41.9 Active 573979844 Problem Headache associated with hormonal factors G44.89 Active 14613860 Problem Constipation K59.00 Active 3171306 8 ALLERGIES No Information ENCOUNTERS Encounter Location Date Diagnosis [facility] [address] [facility] [id number] [address] [place] [address] Jul, Mild intermittent asthma, un specified whether complicated J45.20 and Anxiety F41.[address] [id number] Apr, Depressive disorder F32.[address] [id number] Mar, [address] [id number] Feb, Urinary tract infection, site not specified N39.0 ; Hematuria, unspecified R31.9 and Dysuria R30.[address] [id number] Jan, Depressive disorder F32.9 and Anxiety disorder, unspecified F41.[address] [id number] Nov, [facility] [id number] 10 Aug, 2018 Constipation K59.00 and Vaginitis N76.[address] [id number] Jul, Diarrhea, unspecified type R19.[address] [id number] Apr, Positive test Z32.[address] [id number] Mar, Concern about sexually transmitted disease in female without diagnosis Z71.1 ; Vaginal lesion N89.8 and Vaginal candidiasis B37.[address] [id number] Jan, Headache associated with hormonal factors G44.89 and History of unprotected sex Z72.[address] [id number] Oct, Acute left flank pain R10.9 ; Vaginal discharge N89.8 ; Acute vaginitis N76.0 and Other specified bacterial agents as the cause of diseases classified elsewhere B96.[address] [id number] Sep, Influenza J11.[address] [id number] Feb, [address] [id number] Feb, STD exposure Z20.2 ; Vaginal discharge N89.8 ; GBS bacteriuria R82.71 ; Non- intractable vomiting with nausea, unspecified vomiting type R11.2 ; Anxiety disorder, unspecified F41.9 ; Reactive depression F32.9 ; Functional diarrhea K59.1 and Acute vaginitis N76.[address] [id number] Jan, STD exposure Z20.2 and Dysthymia F34.[address] [id number] Nov, Recent major surgery Z98.890 ; Pain R52 ; Constipation by delayed colonic transit K59.01 ; Anxiety F41.9 and Obsessive-compulsive behavior R46.[address] [id number] Nov, [address] [id number] Oct, Diarrhea, unspecified type R19.7 ; High risk sexual behavior Z72.51 ; Encounter for IUD removal Z30.432 ; STD exposure Z20.2 and Trichomoniasis A59.[address] [id number] Oct, Dysuria R30.[address] [id number] Oct, Dysuria R30.0 and Fever, unspecified R50.[address] [id number] Sep, Stomach pain R10.9 ; Bilious vomiting with nausea R11.14 ; Functional diarrhea K59.1 ; Anxiety F41.9 ; Obsessive-compulsive behavior R46.81 and Poor fluid intake R63.[address] [id number] Aug, [address] [id number] Aug, Stomach pain R10.9 ; Bilious vomiting with nausea R11.14 ; Functional diarrhea K59.1 ; Anxiety F41.9 ; Obsessive-compulsive behavior R46.81 and Poor fluid intake R63.[address] [id number] Jul, Vaginal discharge N89.8 and High risk sexual behavior Z72.[address] [id number] Mar, [address] [id number] Mar, test negative Z32.[address] [id number] Mar, Urinary tract infection, site not specified N39.[address] [id number] December, Seasonal allergic reaction J30.2 and Cough R05 [address] [id number] May, Bronchitis J40 ; Mild intermittent asthma with acute exacerbation J45.21 and Reflux gastritis K29.[address] [id number] May, [address] [id number] May, CAP (community acquired pneumonia) J18.[address] [id number] Apr, Encounter for PPD test V74.[address] [id number] Apr, Encounter for PPD test V74.[address] [id number] Feb, Dysuria 788.1 and Bronchitis [address] [facility] [address] [address] Nov, [facility] [address] [address] Nov, [address] [id number] Sep, [facility] [address] [address] Sep, [facility] [address] [address] Jun, [address] [id number] Jun, [facility] [address] [address] Apr, [address] [id number] Apr, [facility] [address] [address] Apr, [facility] [place] [address] [id number] [place] [id number] Mar, [facility] [id number] [place] [address] Mar, [facility] [place] [address] [facility] [place] [id number] Feb, [facility] [id number] [place] [address] Feb, [facility] [place] [id number] [place] [address] December, [facility] [id number] [place] [address] Nov, [facility] [place] [address] [id number] [id number] Nov, [facility] [id number] [place] [address] Nov, [facility] [place] [address] [id number] [id number] Sep, [facility] [id number] [place] [address] Sep, [facility] [id number] [place] [address] Sep, [facility] [id number] [place] [address] Sep, [facility] [place] [address] [id number] [id number] Sep, [facility] [id number] [place] [address] Sep, [facility] [id number] [place] [address] May, [facility] [place] [address] [id number] [id number] May, [facility] [id number] [place] [address] May, [facility] [address] [facility] [place] [id number] Apr, [facility] [id number] [place] [address] Feb, [place] [id number] [place] [id number] Feb, [place] [id number] [place] [address] [id number] Jul, [facility] [address] [address] Jul, [place] [id number] [place] [id number] Jul, [facility] [address] [address] Jul, [address] [place] [address] [id number] Mar, [place] [id number] [place] [address] [id number] Jan, IMMUNIZATIONS No Known Immunizations SOCIAL HISTORY Never Assessed REASON FOR VISIT PLAN OF CARE VITAL SIGNS MEDICATIONS No Known Medications RESULTS No Results PROCEDURES No Known procedures INSTRUCTIONS MEDICATIONS ADMINISTERED No Known Medications MEDICAL (GENERAL) HISTORY Type Description Date Medical History depression Medical History right ovarian cyst Surgical History colonoscopy and EGD, normal results 2014 Surgical History at [facility] left ovarian cyst drained 11/2016 Hospitalization History pneumonia Hospitalization History Was in hospital in [place] about 3 months ago for vomiting-dehydration Hospitalization History Child
--- OUTSIDE RECORDS SUMMARY | 2020-01-05 14:56 | XMS REPORT ---
Author Author Dash Enrique Organization [facility] Address [address] [place] [address] Care Team Providers Care Sql Engineer Name Role Phone KRISTEN Enrique Unavailable PROBLEMS Type Condition ICD9-CM Code YOB13-CN Code Onset Dates Condition S tatus SNOMED Code Problem Obsessive-compulsive behavior R46.81 Active 38192968 Problem Functional diarrhea K59.1 Active 12167793 Problem Bilious vomiting with nausea R11.14 A ctive 15946872 Problem Depressive disorder F32.9 Active 75062549 Problem Anxiety F41.9 Active 68051949 Problem Mild intermittent asthma, unspecified whether complicated J45.20 Active 027418909 Problem Dysthymia F34.1 Active 17882866 Problem Anxiety disorder, unspecified F41.9 Active 620087877 Problem Headache associated with hormonal factors G44.89 Active 97198687 Problem Constipation K59.00 Active 0206117 8 ALLERGIES No Information ENCOUNTERS Encounter Location Date Diagnosis [facility] [place] [address] [facility] [id number] [address] [place] [address] December, [facility] [place] [address] [facility] [id number] [address] [place] [address] Nov, Encounter for supervision of other normal in first trimester Z34.81 [facility] [id number] [place] [id number] Nov, [facility] [place] [address] [facility] [id number] [address] [place] [address] Nov, Encounter for supervision of other normal in first trimester Z34.81 [facility] [place] [address] [facility] [id number] [address] [place] [address] Oct, Encounter for supervision of other normal in first trimester Z34.81 and Depressive disorder F32.9 [facility] [address] [facility] [id number] [address] [place] [address] Jul, Mild intermittent asthma, un specified whether complicated J45.20 and Anxiety F41.9 [facility] [address] [facility] [id number] [place] [id number] Apr, Depressive disorder F32.9 [place] [id number] [place] [address], [place] [id number] Mar, [place] [id number] [place] [address], [place] [id number] Feb, Urinary tract infection, site not specif ied N39.0 ; Hematuria, unspecified R31.9 and Dysuria R30.0 [place] [address] [facility] [id number] [place] [id number] Jan, Depressive disorder F32.9 and Anxiety di sorder, unspecified F41.9 [facility] [id number] [place] [address], [place] [id number] Nov, [address] [id number] [place] [id number] Aug, Constipation K59.00 and Vaginitis N76.0 [place] [id number] [place] [id number] Jul, Diarrhea, unspecified type R19.7 [address] [place] [address], [place] [id number] Apr, Positive test Z32.01 [place] [id number] [place] [id number] Mar, Concern about sexually transmitted disea se in female without diagnosis Z71.1 ; Vaginal lesion N89.8 and Vaginal candidiasis B37.3 [place] [id number] [place] [address], [place] [id number] Jan, Headache associated with hormonal factor s G44.89 and History of unprotected sex Z72.51 [address] [place] [address], [place] [id number] Oct, Acute left flank pain R10.9 ; Vaginal di scharge N89.8 ; Acute vaginitis N76.0 and Other specified bacterial agents as the cause of diseases classified elsewhere B96.89 [place] [id number] [place] [address], [place] [id number] Sep, Influenza J11.1 [facility] [id number] [place] [id number] Feb, [place] [id number] [place] [address], [place] [id number] Feb, STD exposure Z20.2 ; Vaginal discharge N 89.8 ; GBS bacteriuria R82.71 ; Non- intractable vomiting with nausea, unspecified vomiting type R11.2 ; Anxiety disorder, unspecified F41.9 ; Reactive depression F32.9 ; Functional diarrhea K59.1 and Acute vaginitis N76.0 [place] [id number] [place] [address], [place] [id number] Jan, STD exposure Z20.2 and Dysthymia F34.1 [place] [id number] [place] [address], [place] [id number] Nov, Recent major surgery Z98.890 ; Pain R52 ; Constipation by delayed colonic transit K59.01 ; Anxiety F41.9 and Obsessive-compulsive behavior R46.81 [place] [id number] [place] [address], [place] [id number] Nov, [place] [id number] [place] [address], [place] [id number] Oct, Diarrhea, unspecified type R19.7 ; High risk sexual behavior Z72.51 ; Encounter for IUD removal Z30.432 ; STD exposure Z20.2 and Trichomoniasis A59.9 [place] [id number] [place] [address], [place] [id number] Oct, Dysuria R30.0 [place] [id number] [place] [address], [place] [id number] Oct, Dysuria R30.0 and Fever, unspecified R50 .9 [place] [id number] [place] [address], [place] [id number] Sep, 2016 Stomach pain R10.9 ; Bilious vomiting wi th nausea R11.14 ; Functional diarrhea K59.1 ; Anxiety F41.9 ; Obsessive-compulsive behavior R46.81 and Poor fluid intake R63.8 [facility] [id number] [place] [address], [place] [id number] Aug, [facility] [id number] [place] [address], [place] [id number] Aug, Stomach pain R10.9 ; Bilious vomiting wi th nausea R11.14 ; Functional diarrhea K59.1 ; Anxiety F41.9 ; Obsessive-compulsive behavior R46.81 and Poor fluid intake R63.8 [place] [address], [place] [id number] Jul, Vaginal discharge N89.8 and High risk se xual behavior Z72.51 [facility] [address], [place] [id number] Mar, [place] [address], [place] [id number] Mar, test negative Z32.02 [facility] [id number] [place] [address], [place] [id number] Mar, Urinary tract infection, site not specif ied N39.0 [facility] [id number] [place] [address], [place] [id number] December, Seasonal allergic reaction J30.2 and Cou gh R05 [place] [address], [place] [id number] May, Bronchitis J40 ; Mild intermittent asthm a with acute exacerbation J45.21 and Reflux gastritis K29.60 [place] [address] [place] [address] [id number] [place] [id number] May, [address], [place] [id number] May, CAP (community acquired pneumonia) J18.9 [place] [address] [id number] [place] [id number] Apr, Encounter for PPD test V74.1 [facility] [address] [id number] [place] [id number] Apr, Encounter for PPD test V74.1 [facility] [address] [id number] [place] [id number] Feb, Dysuria 788.1 and Bronchitis 490 [facility] [address] [facility] [id number] [address] [place] [address], [place] [address] Nov, [facility] [address] [facility] [id number] [address] [place] [address] Nov, [facility] [address] [id number] [place] [id number] Sep, [facility] [address] [facility] [id number] [address] [place] [address] Sep, [facility] [address] [facility] [id number] [address] [place] [address], [place] [address] Jun, [facility] [address] [id number] [place] [id number] Jun, [facility] [address] [facility] [id number] [address] [place] [address], [place] [address] Apr, [facility] [address] [id number] [place] [id number] Apr, [facility] [address] [facility] [id number] [address] [place] [address], [place] [address] Apr, [facility] [address] [id number] [place] [id number] Mar, [facility] [address] [facility] [id number] [address] [place] [address], [place] [address] Mar, [facility] [address] [id number] [place] [id number] Feb, [facility] [address] [facility] [id number] [address] [place] [address], [place] [address] Feb, [facility] [address] [facility] [id number] [address] [place] [address], [place] [address] December, [facility] [address] [id number] [address] [place] [address], [place] [address] Nov, [facility] [place] [address] [id number] [place] [id number] Nov, [facility] [address] [facility] [id number] [address] [place] [address], [place] [address] Nov, [facility] [address] [id number] [place] [id number] Sep, [facility] [address] [id number] [address] [place] [address], [place] [address] Sep, [facility] [address] [facility] [id number] [address] [place] [address], [place] [address] Sep, [facility] [address] [facility] [id number] [address] [place] [address], [place] [address] Sep, [facility] [address] [facility] [id number] [place] [id number] Sep, [facility] [address] [facility] [id number] [address] [place] [address], [place] [address] Sep, [facility] [address] [facility] [id number] [address] [place] [address], [place] [address] May, [facility] [address] [facility] [id number] [place] [id number] May, [facility] [address] [facility] [id number] [address] [place] [address], [place] [address] May, [facility] [address] [id number] [place] [id number] Apr, [facility] [address] [facility] [id number] [address] [place] [address], [place] [address] Feb, [facility] [address] [id number] [place] [id number] Feb, [facility] [address] [id number] [place] [id number] Jul, [facility] [address] [facility] [id number] [place] [address] Jul, [facility] [address] [facility] [id number] [place] [id number] Jul, [facility] [place] [address] [facility] [id number] [place] [address] Jul, [facility] [address] [facility] [id number] [place] [id number] Mar, [facility] [address] [facility] [id number] [place] [id number] Jan, IMMUNIZATIONS No Known Immunizations SOCIAL HISTORY Never Assessed REASON FOR VISIT PLAN OF CARE VITAL SIGNS Height 63 in 2014-09-18 Weight 114.8 lbs 2014-09-18 Temperature 98.1 degrees Fahrenheit 2014-09-18 Heart Rate 80 bpm 2014-09-18 Respiratory Rate 20 2014-09-18 Blood pressure systolic 104 mmHg 2014-09-18 Blood pressure diastolic 66 mmHg 2014-09-18 MEDICATIONS Unknown Medications RESULTS No Results PROCEDURES No Known procedures INSTRUCTIONS MEDICATIONS ADMINISTERED No Known Medications MEDICAL (GENERAL) HISTORY Type Description Date Medical History depression Medical History right ovarian cyst Surgical History colonoscopy and EGD, normal results 2014 Surgical History at [facility] left ovarian cyst drained 11/2016 Hospitalization History pneumonia Hospitalization History Was in hospital in [place] about 3 months ago for vomiting-dehydration Hospitalization History Child
--- OUTSIDE RECORDS SUMMARY | 2020-01-05 14:57 | XMS REPORT ---
Author Author RIDGE Michaelmarilia LARAWNYA Organization [facility] Address [address] [place] [address] Care Team Providers Care Skip Load Driver Name Role Phone BANDAR SABILLON Unavailable PROBLEMS Type Condition ICD9-CM Code TWS49-GD Code Onset Dates Condition S tatus SNOMED Code Problem Obsessive-compulsive behavior R46.81 Active 60331095 Problem Anxiety F41.9 Active 91009230 Problem Headache associated with hormonal factors G44.89 Active 38104882 Problem Reactive depression F32.9 Active 20070095 Problem Bilious vomiting with nausea R11.14 A ctive 17690173 Problem Functional diarrhea K59.1 Active 74694580 Problem Anxiety disorder, unspecified F41.9 Active 502285537 Problem Dysthymia F34.1 Active 63239350 ALLERGIES Substance Reaction Event Type Date Status Latex hives Drug Allergy Jan, Active Macrobid vomiting/diarrhea Drug Allergy Jan, Active Benadryl anaphylaxis Drug Allergy Jan, Active ENCOUNTERS Encounter Location Date Diagnosis [id number] [place], [place] [address]T[place] [id number] Mar, Concern about sexually transmitted disea se in female without diagnosis Z71.1 ; Vaginal lesion N89.8 and Vaginal candidiasis B37.3 [id number] [id number] Jan, Headache associated with hormonal factor s G44.89 and History of unprotected sex Z72.[address] [place], [place] [address], [place] [id number] Oct, Acute left flank pain R10.9 ; Vaginal di scharge N89.8 ; Acute vaginitis N76.0 and Other specified bacterial agents as the cause of diseases classified elsewhere B96.[address] [place] [address], [place] [id number] Sep, Influenza J11.1 [facility] [id number] [place] [id number] Feb, [place] [id number] [place] [address], [place] [id number] Feb, STD exposure Z20.2 ; Vaginal discharge N 89.8 ; GBS bacteriuria R82.71 ; Non- intractable vomiting with nausea, unspecified vomiting type R11.2 ; Anxiety disorder, unspecified F41.9 ; Reactive depression F32.9 ; Functional diarrhea K59.1 and Acute vaginitis N76.[address] [place] [address], [place] [id number] Jan, STD exposure Z20.2 and Dysthymia F34.1 [place] [id number] [place] [address], [place] [id number] Nov, Recent major surgery Z98.890 ; Pain R52 ; Constipation by delayed colonic transit K59.01 ; Anxiety F41.9 and Obsessive-compulsive behavior R46.[address] [place] [address], [place] [id number] Nov, [place] [id number] [place] [address], [place] [id number] Oct, Diarrhea, unspecified type R19.7 ; High risk sexual behavior Z72.51 ; Encounter for IUD removal Z30.432 ; STD exposure Z20.2 and Trichomoniasis A59.[address] [place] [address], [place] [id number] Oct, Dysuria R30.0 [address], [place] [id number] Oct, Dysuria R30.0 and Fever, unspecified R50 .9 [place] [id number] [place] [address], [place] [id number] Sep, Stomach pain R10.9 ; Bilious vomiting wi th nausea R11.14 ; Functional diarrhea K59.1 ; Anxiety F41.9 ; Obsessive-compulsive behavior R46.81 and Poor fluid intake R63.[address] [id number] [place] [id number] Aug, [facility] [address] [facility] [id number] [place] [id number] Aug, Stomach pain R10.9 ; Bilious vomiting wi th nausea R11.14 ; Functional diarrhea K59.1 ; Anxiety F41.9 ; Obsessive-compulsive behavior R46.81 and Poor fluid intake R63.8 [facility] [id number] [place] [address], [place] [id number] Jul, Vaginal discharge N89.8 and High risk se xual behavior Z72.51 [facility] [address] [place] [address] [id number] [place] [id number] Mar, [facility] [address] [id number] [place] [id number] Mar, test negative Z32.02 [place] [address] [place] [address] [id number] [place] [address], [place] [id number] Mar, Urinary tract infection, site not specif ied N39.0 [facility] [address] [id number] [place] [id number] December, Seasonal allergic reaction J30.2 and Cou gh R05 [place] [address] [place] [address] [id number] [place] [id number] May, Bronchitis J40 ; Mild intermittent asthm a with acute exacerbation J45.21 and Reflux gastritis K29.60 [facility] [address] [id number] [place] [id number] May, [facility] [address] [facility] [id number] [place] [id number] May, CAP (community acquired pneumonia) J18.9 [place] [address] [facility] [id number] [place] [id number] Apr, Encounter for PPD test V74.1 [facility] [address] [id number] [place] [id number] Apr, Encounter for PPD test V74.1 [facility] [address] [id number] [place] [id number] Feb, Dysuria 788.1 and Bronchitis [address] [facility] [address] [id number] [address] [place] [address], [place] [address] Nov, [facility] [address] [id number] [address] [place] [address], [place] [address] Nov, [facility] [place] [address] [id number] [place] [id number] Sep, [facility] [address] [id number] [address] [place] [address], [place] [id number] Sep, [facility] [address] [id number] [address] [place] [address], [place] [id number] Jun, [facility] [address] [facility] [id number] [place] [id number] Jun, [facility] [address] [facility] [id number] [address] [place] [address], [place] [address] Apr, [facility] [address] [id number] [place] [id number] Apr, [facility] [address] [facility] [id number] [address] [place] [address], [place] [address] Apr, [facility] [address] [facility] [id number] [place] [id number] Mar, [facility] [address] [facility] [id number] [address] [place] [address], [place] [id number] Mar, [facility] [address] [id number] [place] [id number] Feb, [facility] [address] [id number] [address] [place] [address], [place] [id number] Feb, [facility] [address] [facility] [id number] [address] [place] [address], [place] [id number] December, [facility] [address] [facility] [id number] [address] [place] [address], [place] [address] Nov, [facility] [address] [id number] [place] [id number] Nov, [facility] [address] [id number] [address] [place] [address], [place] [address] Nov, [facility] [address] [id number] [place] [id number] Sep, [facility] [address] [id number] [address] [place] [address], [place] [id number] Sep, [facility] [address] [id number] [address] [place] [address], [place] [id number] Sep, [facility] [address] [id number] [address] [place] [address], [place] [id number] Sep, [facility] [place] [address] [id number] [place] [id number] Sep, [facility] [address] [facility] [id number] [address] [place] [address], [place] [id number] Sep, [facility] [address] [facility] [id number] [address] [place] [id number] May, [facility] [address] [id number] [place] [id number] May, [facility] [address] [facility] [id number] [address] [place] [address], [place] [id number] May, [facility] [place] [address] [id number] [place] [id number] Apr, [facility] [address] [id number] [address] [place] [address], [place] [id number] Feb, [facility] [address] [id number] [place] [id number] Feb, [facility] [address] [id number] [place] [id number] Jul, [facility] [address] [id number] [address] [place] [address], [place] [address] Jul, [facility] [place] [address] [id number] [place] [id number] Jul, [facility] [address] [facility] [id number] [address] [place] [address] Jul, [facility] [place] [address] [facility] [id number] Altaf [place] S [id number] Mar, [facility] [place] [address] [facility] [id number] Altaf BROWN S [id number] Jan, IMMUNIZATIONS No Known Immunizations SOCIAL HISTORY Never Assessed REASON FOR VISIT Migraine for three days Edwige RN PLAN OF CARE Activity Details Follow Up if not improving with PCP or reg follow up Reason: VITAL SIGNS Height 63 in 2018-01-28 Weight 111.8 lbs 2018-01-28 Temperature 98.6 degrees Fahrenheit 2018-01-28 Heart Rate 69 bpm 2018-01-28 Respiratory Rate 18 2018-01-28 BMI 19.80 kg/m2 2018-01-28 Blood pressure systolic 100 mmHg 2018-01-28 Blood pressure diastolic 62 mmHg 2018-01-28 MEDICATIONS Medication Instructions Dosage Frequency Start Date End Date Duration S tatus Ibuprofen 800 MG Orally Three times a day prn 1 tablet wi th food or milk as needed Jan, Feb, 30 days Active Yxfbmxnwzy-HOQM-Mjsrsuca 50-325-40 MG Orally every 4-6 hours as needed for witt 1 tablet as needed Jan, Active RESULTS Name Result Date Reference Range TEST, URINE (IN HOUSE) RESULTS negative Lot # [id number] Control positive Exp date 08/16/19 PROCEDURES Procedure Date Ordered Result Body Site URINE TEST January 28, 2018 INSTRUCTIONS MEDICATIONS ADMINISTERED No Known Medications MEDICAL (GENERAL) HISTORY Type Description Date Medical History depression Medical History right ovarian cyst Surgical History colonoscopy and EGD, normal results 2014 Surgical History at [facility] left ovarian cyst drained 11/2016 Hospitalization History pneumonia Hospitalization History Was in hospital in [place] about 3 months ago for vomiting-dehydration
--- OUTSIDE RECORDS SUMMARY | 2020-01-05 14:57 | XMS REPORT ---
Author Author Nasim, Dash Doctor Organization [facility] Address Unknown Phone Unavailable Care Team Providers Care Hand Assembler Name Role Phone Migration, Doctor Unavailable Unavailable PROBLEMS Type Condition ICD9-CM Code VTQ46-PQ Code Onset Dates Condition S tatus SNOMED Code Problem Bilious vomiting with nausea R11.14 A ctive 61992495 Problem Anxiety F41.9 Active 71129645 Problem Obsessive-compulsive behavior R46.81 Active 60627356 Problem Headache associated with hormonal factors G44.89 Active 68793974 Problem Constipation K59.00 Active 3563694 8 Problem Functional diarrhea K59.1 Active 80400669 Problem Dysthymia F34.1 Active 19493105 Problem Anxiety disorder, unspecified F41.9 Active 397709847 Problem Reactive depression F32.9 Active 41953130 ALLERGIES No Information ENCOUNTERS Encounter Location Date Diagnosis [place] [id number] [place] [address], S [id number] Nov, [address], [place] [id number] Aug, Constipation K59.00 and Vaginitis N76.0 [place] [id number] [place] [address], [place] [id number] Jul, Diarrhea, unspecified type R19.7 [place] [id number] [place] [address], [place] S [id number] Apr, Positive test Z32.01 [place] [id number] [place] [address], [place] S [id number] Mar, Concern about sexually transmitted disea se in female without diagnosis Z71.1 ; Vaginal lesion N89.8 and Vaginal candidiasis B37.3 [facility] [address] [address] [id number] [place] [address], [place] S [id number] 14 Jan, 2018 Headache associated with hormonal factor s G44.89 and History of unprotected sex Z72.51 [place] [id number], [place] [id number] Oct, Acute left flank pain R10.9 ; Vaginal di scharge N89.8 ; Acute vaginitis N76.0 and Other specified bacterial agents as the cause of diseases classified elsewhere B96.89 [address] [place] [address], [place] [id number] Sep, Influenza J11.1 [place] [id number] [place] [address], S [id number] Feb, [place] [id number] [place] [address], [place] [id number] Feb, STD exposure Z20.2 ; Vaginal discharge N 89.8 ; GBS bacteriuria R82.71 ; Non- intractable vomiting with nausea, unspecified vomiting type R11.2 ; Anxiety disorder, unspecified F41.9 ; Reactive depression F32.9 ; Functional diarrhea K59.1 and Acute vaginitis N76.0 [place] [id number] [place] [address], S [id number] Jan, STD exposure Z20.2 and Dysthymia F34.1 [place] [id number] [place] [address], [place] [id number] Nov, Recent major surgery Z98.890 ; Pain R52 ; Constipation by delayed colonic transit K59.01 ; Anxiety F41.9 and Obsessive-compulsive behavior R46.81 [address] [place] [address], [place] [id number] Nov, [place] [id number] [place] [address], [place] S [id number] Oct, Diarrhea, unspecified type R19.7 ; High risk sexual behavior Z72.51 ; Encounter for IUD removal Z30.432 ; STD exposure Z20.2 and Trichomoniasis A59.9 [address] [place] [address], [place] S [id number] Oct, Dysuria R30.0 [address] [place] [address], [place] S [id number] Oct, Dysuria R30.0 and Fever, unspecified R50 .9 [facility] [address] [facility] [id number] [place] [id number] 08 Sep, 2016 Stomach pain R10.9 ; Bilious vomiting wi th nausea R11.14 ; Functional diarrhea K59.1 ; Anxiety F41.9 ; Obsessive-compulsive behavior R46.81 and Poor fluid intake R63.8 [facility] [id number] [place] [address], [place] S [id number] Aug, [facility] [address] [id number] [place] [address], [place] [id number] Aug, Stomach pain R10.9 ; Bilious vomiting wi th nausea R11.14 ; Functional diarrhea K59.1 ; Anxiety F41.9 ; Obsessive-compulsive behavior R46.81 and Poor fluid intake R63.8 [facility] [address], [place] [id number] Jul, Vaginal discharge N89.8 and High risk se xual behavior Z72.51 [facility] [id number] [place] [address], [place] S [id number] Mar, [facility] [address], [place] [id number] Mar, test negative Z32.02 [facility] [address] [place] [id number] [place] [id number] Mar, Urinary tract infection, site not specif ied N39.0 [facility] [address] [address] [id number] [place] [address], [place] [id number] December, Seasonal allergic reaction J30.2 and Cou gh R05 [facility] [address] [place] [id number] [place] [address], [place] [id number] May, Bronchitis J40 ; Mild intermittent asthm a with acute exacerbation J45.21 and Reflux gastritis K29.60 [place] [address] [place] [address] [id number] [place] [address], [place] [id number] May, [facility] [address] [place] [address] [id number] [place] [address], [place] [id number] May, CAP (community acquired pneumonia) J18.9 [place] [address], [place] [id number] Apr, Encounter for PPD test V74.1 [facility] [address] [id number] [place] [id number] Apr, Encounter for PPD test V74.1 [facility] [address] [id number] [place] [id number] Feb, Dysuria 788.1 and Bronchitis 490 [facility] [address] [facility] [id number] [address] [place] [phone] Nov, [facility] [address] [facility] [id number] [address] [place] [id number] Nov, [facility] [address] [facility] [id number] [place] [id number] Sep, [facility] [address] [facility] [id number] [address] [place] [address] Sep, [facility] [address] [facility] [id number] [address] [place] [address] Jun, [facility] [address] [facility] [id number] [place] [id number] Jun, [facility] [address] [facility] [id number] [address] [place] [address] Apr, [facility] [address] [id number] [place] [id number] Apr, [facility] [address] [facility] [id number] [address] [place] [address] Apr, [facility] [address] [id number] [place] [id number] Mar, [facility] [address] [facility] [id number] [address] [place] [phone] Mar, [facility] [address] [id number] [place] [id number] Feb, [facility] [address] [facility] [id number] [address] [place] [phone] Feb, [facility] [address] [id number] [address] [place] [address], [place] [address] December, [facility] [address] [id number] [address] [place] [address], [place] [address] Nov, [facility] [place] [address] [id number] [place] [id number] Nov, [facility] [address] [id number] [address] [place] [address], [place] [address] Nov, [facility] [place] [address] [id number] [place] [id number] Sep, [facility] [address] [id number] [address] [place] [address], [place] [address] Sep, [facility] [address] [facility] [id number] [address] [place] [address], [place] [address] Sep, [facility] [address] [facility] [id number] [address] [place] [address], [place] [address] Sep, [facility] [address] [id number] [place] [id number] Sep, [facility] [address] [facility] [id number] [address] [place] [address], [place] [address] Sep, [facility] [address] [facility] [id number] [address] [place] [address], [place] [address] May, [facility] [address] [id number] [place] [id number] May, [facility] [address] [id number] [address] [place] [address], [place] [address] May, [facility] [place] [address] [id number] [place] [id number] Apr, [facility] [address] [id number] [address] [place] [address], [place] [address] Feb, [facility] [address] [id number] [place] [id number] Feb, [facility] [address] [id number] [place], S [id number] Jul, [facility] [address] [facility] [id number] [address] [address] Jul, [facility] [address] [facility] [id number] [place], [place] [id number] Jul, [facility] [address] [facility] [id number] [place] [address] Jul, [facility] [address] [facility] [id number] [place], [place] [id number] Mar, [facility] [address] [facility] [id number] [place], S [id number] Jan, IMMUNIZATIONS No Known Immunizations SOCIAL HISTORY Never Assessed REASON FOR VISIT EMR-[facility] PLAN OF CARE VITAL SIGNS MEDICATIONS Unknown Medications RESULTS No Results PROCEDURES No Known procedures INSTRUCTIONS MEDICATIONS ADMINISTERED No Known Medications MEDICAL (GENERAL) HISTORY Type Description Date Medical History depression Medical History right ovarian cyst Surgical History colonoscopy and EGD, normal results 2014 Surgical History at [facility] left ovarian cyst drained 11/2016 Hospitalization History pneumonia Hospitalization History Was in hospital in [place] about 3 months ago for vomiting-dehydration
--- OUTSIDE RECORDS SUMMARY | 2020-01-05 14:57 | XMS REPORT ---
Author Author Dash CHAVEZ Organization [facility] Address [address] [place] [address] Care Team Providers Care Cable Installer Repairer Helper Name Role Phone SUSHILA TSEHAMILTON Unavailable PROBLEMS Type Condition ICD9-CM Code KAR08-OA Code Onset Dates Condition S tatus SNOMED Code Problem Obsessive-compulsive behavior R46.81 Active 31457329 Problem Anxiety F41.9 Active 92011570 Problem Headache associated with hormonal factors G44.89 Active 51910471 Problem Reactive depression F32.9 Active 14119381 Problem Bilious vomiting with nausea R11.14 A ctive 75334949 Problem Functional diarrhea K59.1 Active 55898240 Problem Anxiety disorder, unspecified F41.9 Active 417575053 Problem Dysthymia F34.1 Active 52330555 ALLERGIES No Information ENCOUNTERS Encounter Location Date Diagnosis [address] [id number] [id number] May, [address] [id number] [facility] [id number] Apr, Positive test Z32.01 [id number] [facility] [id number] Mar, Concern about sexually transmitted disea se in female without diagnosis Z71.1 ; Vaginal lesion N89.8 and Vaginal candidiasis B37.[address] [id number] [facility] [id number] Jan, Headache associated with hormonal factor s G44.89 and History of unprotected sex Z72.[address] [id number] [facility] [id number] Oct, Acute left flank pain R10.9 ; Vaginal di scharge N89.8 ; Acute vaginitis N76.0 and Other specified bacterial agents as the cause of diseases classified elsewhere B96.89 [facility] [id number] [place] [id number] Sep, Influenza J11.1 [address] [place] [address], S [id number] Feb, [place] [id number] [place] [address], [place] [id number] Feb, STD exposure Z20.2 ; Vaginal discharge N 89.8 ; GBS bacteriuria R82.71 ; Non- intractable vomiting with nausea, unspecified vomiting type R11.2 ; Anxiety disorder, unspecified F41.9 ; Reactive depression F32.9 ; Functional diarrhea K59.1 and Acute vaginitis N76.0 [place] [id number] [place] [address], [place] [id number] Jan, STD exposure Z20.2 and Dysthymia F34.1 [place] [id number] [place] [address], [place] [id number] Nov, Recent major surgery Z98.890 ; Pain R52 ; Constipation by delayed colonic transit K59.01 ; Anxiety F41.9 and Obsessive-compulsive behavior R46.81 [place] [id number] [place] [address], [place] [id number] Nov, [place] [id number] [place] [address], [place] [id number] Oct, Diarrhea, unspecified type R19.7 ; High risk sexual behavior Z72.51 ; Encounter for IUD removal Z30.432 ; STD exposure Z20.2 and Trichomoniasis A59.9 [address] [place] [address], [place] [id number] Oct, Dysuria R30.0 [place] [id number] [place] [address], [place] [id number] Oct, Dysuria R30.0 and Fever, unspecified R50 .9 [place] [id number] [place] [address], [place] [id number] Sep, Stomach pain R10.9 ; Bilious vomiting wi th nausea R11.14 ; Functional diarrhea K59.1 ; Anxiety F41.9 ; Obsessive-compulsive behavior R46.81 and Poor fluid intake R63.8 [facility] [address] [facility] [id number] [place] [id number] Aug, [facility] [address] [facility] [id number] [place] [id number] Aug, Stomach pain R10.9 ; Bilious vomiting wi th nausea R11.14 ; Functional diarrhea K59.1 ; Anxiety F41.9 ; Obsessive-compulsive behavior R46.81 and Poor fluid intake R63.8 [facility] [address] [facility] [id number] [place] [id number] Jul, Vaginal discharge N89.8 and High risk se xual behavior Z72.51 [facility] [address] [place] [id number] [place] [id number] Mar, [facility] [address] [place] [address] [id number] [place] [id number] Mar, test negative Z32.02 [facility] [address] [place] [id number] [place] [id number] Mar, Urinary tract infection, site not specif ied N39.0 [facility] [address] [place] [id number] [place] [id number] December, Seasonal allergic reaction J30.2 and Cou gh R05 [facility] [address] [place] [address] [id number] [place] [id number] May, Bronchitis J40 ; Mild intermittent asthm a with acute exacerbation J45.21 and Reflux gastritis K29.60 [facility] [address] [facility] [id number] [place] [id number] May, [facility] [address] [facility] [id number] [place] [id number] May, CAP (community acquired pneumonia) J18.9 [facility] [address] [facility] [id number] [place] [id number] Apr, Encounter for PPD test V74.1 [place] [address] [place] [id number] [place] [id number] Apr, Encounter for PPD test V74.1 [facility] [address] [id number] [place] [id number] Feb, Dysuria 788.1 and Bronchitis 490 [facility] [address] [facility] [id number] [address] [place] [address] Nov, [facility] [address] [facility] [id number] [address] [place] [address] Nov, [facility] [address] [id number] [place] [id number] Sep, [facility] [address] [facility] [id number] [address] [place] [address] Sep, [facility] [address] [place] [id number] [address] [place] [phone] Jun, [facility] [place] [address] [facility] [id number] [place] [id number] Jun, [facility] [address] [facility] [id number] [address] [place] [address] Apr, [facility] [address] [id number] [place] [id number] Apr, [facility] [address] [facility] [id number] [address] [place] [phone] Apr, [facility] [place] [address] [facility] [id number] [place] [id number] Mar, [facility] [address] [facility] [id number] [address] [place] [phone] Mar, [facility] [address] [id number] [place] [id number] Feb, [facility] [address] [facility] [id number] [address] [place] [address] Feb, [facility] [address] [facility] [id number] [address] [place] [phone] December, [facility] [address] [facility] [id number] [address] [place] [phone] Nov, [facility] [address] [id number] [place] [id number] Nov, [facility] [address] [id number] [address] [place] [address], [place] [address] Nov, [facility] [address] [id number] [place] [id number] Sep, [facility] [address] [id number] [address] [place] [address], [place] [address] Sep, [facility] [address] [id number] [address] [place] [address], [place] [address] Sep, [facility] [address] [id number] [address] [place] [address], [place] [address] Sep, [facility] [address] [id number] [place] [id number] Sep, [facility] [address] [id number] [address] [place] [address], [place] [address] Sep, [facility] [address] [id number] [address] [place] [address], [place] [address] May, [facility] [address] [id number] [place] [id number] May, [facility] [address] [facility] [id number] [address] [place] [address], [place] [address] May, [facility] [address] [id number] [place] [id number] Apr, [facility] [address] [id number] [address] [place] [address], [place] [address] Feb, [facility] [address] [id number] [place] [id number] Feb, [facility] [address] [id number] [place] [id number] Jul, [facility] [address] [id number] [address] [place] [address], [place] [address] Jul, [facility] [address] [facility] [id number] [place] [id number] Jul, [facility] [address] [facility] [id number] [address] [place] [address] Jul, [facility] [address] [facility] [id number] [place] [id number] Mar, [facility] [address] [facility] [id number] [place], [place] [id number] Jan, IMMUNIZATIONS No Known Immunizations SOCIAL HISTORY Never Assessed REASON FOR VISIT test. edie Kaufman, Patient made appt with Dr. Boyle to start OB ca re. PLAN OF CARE VITAL SIGNS MEDICATIONS Unknown Medications RESULTS Name Result Date Reference Range TEST, URINE (IN HOUSE) 2018-05-03 RESULTS POSITIVE Lot # [id number] Control + Exp date 12/04 PROCEDURES Procedure Date Ordered Result Body Site URINE TEST May 03, 2018 INSTRUCTIONS MEDICATIONS ADMINISTERED No Known Medications MEDICAL (GENERAL) HISTORY Type Description Date Medical History depression Medical History right ovarian cyst Surgical History colonoscopy and EGD, normal results 2014 Surgical History at [facility] left ovarian cyst drained 11/2016 Hospitalization History pneumonia Hospitalization History Was in hospital in [place] about 3 months ago for vomiting-dehydration
--- OUTSIDE RECORDS SUMMARY | 2020-01-05 14:57 | XMS REPORT ---
Author Author Dash EnriqueSIE Organization [facility] Address [address] [place] [address] Care Team Providers Care Top Steep Tender Name Role Phone AmberKANWALKRISTEN Unavailable PROBLEMS Type Condition ICD9-CM Code TZN93-SI Code Onset Dates Condition S tatus SNOMED Code Problem Anxiety F41.9 Active 28707586 Problem Obsessive-compulsive behavior R46.81 Active 07148930 Problem Functional diarrhea K59.1 Active 33281154 Problem Constipation K59.00 Active 0740087 8 Problem Depressive disorder F32.9 Active 47668315 Problem Bilious vomiting with nausea R11.14 A ctive 92695506 Problem Dysthymia F34.1 Active 16502218 Problem Anxiety disorder, unspecified F41.9 Active 464541862 Problem Headache associated with hormonal factors G44.89 Active 01061928 ALLERGIES No Information ENCOUNTERS Encounter Location Date Diagnosis [id number] [place] [address], [place] [id number] Mar, [place] [id number] [place] [address], [place] [id number] Feb, Urinary tract infection, site not specif ied N39.0 ; Hematuria, unspecified R31.9 and Dysuria R30.0 [place] [id number] [place] [address], [place] [id number] Jan, Depressive disorder F32.9 and Anxiety di sorder, unspecified F41.9 [id number] [place] [address], [place] [id number] Nov, [place] [id number] [place] [address], [place] [id number] Aug, Constipation K59.00 and Vaginitis N76.0 [place] [id number] [place] [address], [place] [id number] Jul, Diarrhea, unspecified type R19.7 [address] [id number] Apr, Positive test Z32.01 [address] [place] [address], S [id number] Mar, Concern about sexually transmitted disea se in female without diagnosis Z71.1 ; Vaginal lesion N89.8 and Vaginal candidiasis B37.3 [place] [id number] [place] [address], S [id number] Jan, Headache associated with hormonal factor s G44.89 and History of unprotected sex Z72.51 [place] [id number] [place] [address], S [id number] Oct, Acute left flank pain R10.9 ; Vaginal di scharge N89.8 ; Acute vaginitis N76.0 and Other specified bacterial agents as the cause of diseases classified elsewhere B96.89 [place] [id number] [place] [address], S [id number] Sep, Influenza J11.1 [address] [place] [address], [place] [id number] Feb, [place] [id number] [place] [address], [place] [id number] Feb, STD exposure Z20.2 ; Vaginal discharge N 89.8 ; GBS bacteriuria R82.71 ; Non- intractable vomiting with nausea, unspecified vomiting type R11.2 ; Anxiety disorder, unspecified F41.9 ; Reactive depression F32.9 ; Functional diarrhea K59.1 and Acute vaginitis N76.0 [address] [place] [address], [place] [id number] Jan, STD exposure Z20.2 and Dysthymia F34.1 [place] [id number] [place] [address], [place] [id number] Nov, Recent major surgery Z98.890 ; Pain R52 ; Constipation by delayed colonic transit K59.01 ; Anxiety F41.9 and Obsessive-compulsive behavior R46.81 [place] [id number] [place] [address], [place] [id number] Nov, [facility] [id number] [place] [id number] Oct, Diarrhea, unspecified type R19.7 ; High risk sexual behavior Z72.51 ; Encounter for IUD removal Z30.432 ; STD exposure Z20.2 and Trichomoniasis A59.9 [facility] [id number] [place] [id number] Oct, Dysuria R30.0 [facility] [address] [place] [id number] [place] [address], [place] [id number] Oct, Dysuria R30.0 and Fever, unspecified R50 .9 [facility] [address] [place] [id number] [place] [address], [place] S [id number] Sep, Stomach pain R10.9 ; Bilious vomiting wi th nausea R11.14 ; Functional diarrhea K59.1 ; Anxiety F41.9 ; Obsessive-compulsive behavior R46.81 and Poor fluid intake R63.8 [facility] [id number] [place] [id number] Aug, [facility] [id number] [place] [id number] Aug, Stomach pain R10.9 ; Bilious vomiting wi th nausea R11.14 ; Functional diarrhea K59.1 ; Anxiety F41.9 ; Obsessive-compulsive behavior R46.81 and Poor fluid intake R63.8 [facility] [id number] [place] [id number] Jul, Vaginal discharge N89.8 and High risk se xual behavior Z72.51 [facility] [id number] [place] [id number] Mar, [facility] [address] [place] [id number] [place] [address], [place] S [id number] Mar, test negative Z32.02 [facility] [address] [place] [id number] [place] [id number] Mar, Urinary tract infection, site not specif ied N39.0 [facility] [address] [place] [id number] [place] [address], [place] [id number] December, Seasonal allergic reaction J30.2 and Cou gh R05 [facility] [address], [place] [id number] May, Bronchitis J40 ; Mild intermittent asthm a with acute exacerbation J45.21 and Reflux gastritis K29.60 [facility] [address], [place] [id number] May, [facility] [address], [place] [id number] May, CAP (community acquired pneumonia) J18.[address], [place] [id number] Apr, Encounter for PPD test V74.[address], [place] [id number] Apr, Encounter for PPD test V74.1 [place] [address], [place] [id number] Feb, Dysuria 788.1 and Bronchitis 490 [facility] [address] [place] [id number] [address] [place] [address] Nov, [facility] [address] [place] [id number] [address] [place] [address] Nov, [facility] [address] [place] [id number] [place] [address], [place] [id number] Sep, [facility] [address] [place] [id number] [address] [place] [address] Sep, [facility] [address] [place] [id number] [address] [place] [address] Jun, [facility] [address] [place] [id number] [place] [address], [place] [id number] Jun, [facility] [address] [place] [id number] [address] [place] [address] Apr, [facility] [address] [place] [id number] [place] [id number] Apr, [facility] [address] [id number] [facility] [place] [address] Apr, [facility] [address] [id number] [place] [id number] Mar, [facility] [address] [id number] [facility] [place] [address] Mar, [facility] [address] [id number] [place] [id number] Feb, [facility] [address] [id number] [facility] [place] [address] Feb, [facility] [address] [id number] [address] [place] [address], [place] [address] December, [facility] [address] [id number] [facility] [place] [address] Nov, [facility] [address] [id number] [place] [id number] Nov, [facility] [address] [id number] [address] [place] [address], [place] [address] Nov, [facility] [address] [id number] [place] [id number] Sep, [facility] [address] [id number] [address] [place] [address], [place] [address] Sep, [facility] [address] [id number] [address] [place] [address], [place] [address] Sep, [facility] [address] [id number] [address] [place] [address], [place] [address] Sep, [facility] [address] [id number] [place] [id number] Sep, [facility] [address] [id number] [address] [place] [address], [place] [address] Sep, [facility] [address] [id number] [address] [place] [address], [place] [address] May, [facility] [address] [id number] [place] [id number] May, [facility] [address] [facility] [id number] [address] [place] [address] May, [facility] [address] [facility] [id number] [place] [id number] Apr, [facility] [address] [facility] [id number] [address] [place] [address] Feb, [facility] [address] [id number] [place] [id number] Feb, [facility] [address] [id number] [place] [id number] Jul, [facility] [address] [facility] [id number] [address] [place] [address] Jul, [facility] [address] [facility] [id number] [place] [id number] Jul, [facility] [address] [facility] [id number] [address] [place] [address] Jul, [facility] [address] [id number] [place] [id number] Mar, [facility] [address] [facility] [id number] [place] [id number] Jan, IMMUNIZATIONS No Known Immunizations SOCIAL HISTORY Never Assessed REASON FOR VISIT PLAN OF CARE VITAL SIGNS Height 63 in 2014-04-12 Weight 107.6 lbs 2014-04-12 Temperature 99.6 degrees Fahrenheit 2014-04-12 Heart Rate 92 bpm 2014-04-12 Respiratory Rate 18 2014-04-12 Blood pressure systolic 108 mmHg 2014-04-12 Blood pressure diastolic 64 mmHg 2014-04-12 MEDICATIONS Unknown Medications RESULTS No Results PROCEDURES Procedure Date Ordered Result Body Site STREP A ASSAY W/OPTIC Apr 12, 2014 INSTRUCTIONS MEDICATIONS ADMINISTERED No Known Medications MEDICAL (GENERAL) HISTORY Type Description Date Medical History depression Medical History right ovarian cyst Surgical History colonoscopy and EGD, normal results 2014 Surgical History at [facility] left ovarian cyst drained 11/2016 Hospitalization History pneumonia Hospitalization History Was in hospital in [place] about 3 months ago for vomiting-dehydration Hospitalization History Child
--- OUTSIDE RECORDS SUMMARY | 2020-01-05 14:57 | XMS REPORT ---
Author Author Nasim, Dash Doctor Organization [facility] Address Unknown Phone Unavailable Care Team Providers Care Dock Builder Name Role Phone Migration, Doctor Unavailable Unavailable PROBLEMS Type Condition ICD9-CM Code GFO21-RS Code Onset Dates Condition S tatus SNOMED Code Problem Anxiety F41.9 Active 50428687 Problem Obsessive-compulsive behavior R46.81 Active 51322945 Problem Functional diarrhea K59.1 Active 22311258 Problem Constipation K59.00 Active 2050725 8 Problem Depressive disorder F32.9 Active 60623128 Problem Bilious vomiting with nausea R11.14 A ctive 48039157 Problem Dysthymia F34.1 Active 74556722 Problem Anxiety disorder, unspecified F41.9 Active 349776492 Problem Headache associated with hormonal factors G44.89 Active 38786062 ALLERGIES No Information ENCOUNTERS Encounter Location Date Diagnosis [facility] [id number] [place] [id number] Apr, Depressive disorder F32.9 [place] [address] [id number] [place] [id number] Mar, [facility] [address] [id number] [place] [id number] Feb, Urinary tract infection, site not specif ied N39.0 ; Hematuria, unspecified R31.9 and Dysuria R30.0 [facility] [address] [id number] [place] [id number] Jan, Depressive disorder F32.9 and Anxiety di sorder, unspecified F41.9 [facility] [address] [id number] [place] [id number] Nov, [facility] [address] [facility] [id number] [place] [id number] Aug, Constipation K59.00 and Vaginitis N76.0 [facility] [address] [id number] [place] [id number] Jul, Diarrhea, unspecified type R19.7 [address] [place] [address], S [id number] Apr, Positive test Z32.01 [place] [id number] [place] [address], [place] [id number] Mar, Concern about sexually transmitted disea se in female without diagnosis Z71.1 ; Vaginal lesion N89.8 and Vaginal candidiasis B37.3 [place] [id number] [place] [address], [place] [id number] Jan, Headache associated with hormonal factor s G44.89 and History of unprotected sex Z72.51 [place] [id number] [place] [address], [place] [id number] Oct, Acute left flank pain R10.9 ; Vaginal di scharge N89.8 ; Acute vaginitis N76.0 and Other specified bacterial agents as the cause of diseases classified elsewhere B96.89 [place] [id number] [place] [address], S [id number] Sep, Influenza J11.1 [address] [place] [address], [place] [id number] Feb, [place] [id number] [place] [address], [place] [id number] Feb, STD exposure Z20.2 ; Vaginal discharge N 89.8 ; GBS bacteriuria R82.71 ; Non- intractable vomiting with nausea, unspecified vomiting type R11.2 ; Anxiety disorder, unspecified F41.9 ; Reactive depression F32.9 ; Functional diarrhea K59.1 and Acute vaginitis N76.0 [address] [place] [address], [place] [id number] Jan, STD exposure Z20.2 and Dysthymia F34.1 [place] [id number] [place] [address], [place] [id number] Nov, Recent major surgery Z98.890 ; Pain R52 ; Constipation by delayed colonic transit K59.01 ; Anxiety F41.9 and Obsessive-compulsive behavior R46.81 [place] [id number] [id number] Nov, [facility] [id number] [place] [id number] Oct, Diarrhea, unspecified type R19.7 ; High risk sexual behavior Z72.51 ; Encounter for IUD removal Z30.432 ; STD exposure Z20.2 and Trichomoniasis A59.9 [facility] [id number] [place] [address], [place] [id number] Oct, Dysuria R30.0 [facility] [id number] [place] [address], [place] [id number] Oct, Dysuria R30.0 and Fever, unspecified R50 .9 [facility] [id number] [place] [address], [place] [id number] Sep, Stomach pain R10.9 ; Bilious vomiting wi th nausea R11.14 ; Functional diarrhea K59.1 ; Anxiety F41.9 ; Obsessive-compulsive behavior R46.81 and Poor fluid intake R63.8 [facility] [id number] [place] [id number] Aug, [facility] [id number] [place] [address], [place] [id number] Aug, Stomach pain R10.9 ; Bilious vomiting wi th nausea R11.14 ; Functional diarrhea K59.1 ; Anxiety F41.9 ; Obsessive-compulsive behavior R46.81 and Poor fluid intake R63.8 [facility] [id number] [place] [id number] Jul, Vaginal discharge N89.8 and High risk se xual behavior Z72.51 [facility] [id number] [place] [id number] Mar, [facility] [id number] [place] [address], [place] [id number] Mar, test negative Z32.02 [facility] [id number] [place] [id number] Mar, Urinary tract infection, site not specif ied N39.0 [facility] [address] [id number] [place] [id number] December, Seasonal allergic reaction J30.2 and Cou gh R05 [facility] [place] [address], [place] [id number] May, Bronchitis J40 ; Mild intermittent asthm a with acute exacerbation J45.21 and Reflux gastritis K29.60 [facility] [address], [place] [id number] May, [facility] [address] [id number] May, CAP (community acquired pneumonia) J18.9 [place] [address], [place] [id number] Apr, Encounter for PPD test V74.[address], [place] [id number] Apr, Encounter for PPD test V74.1 [facility] [address], [place] [id number] Feb, Dysuria 788.1 and Bronchitis 490 [facility] [address] [address] Nov, [facility] [id number] [place] [address] Nov, [facility] [id number] [place] [address], [place] [id number] Sep, [facility] [address] [id number] [address] [place] [address] Sep, [facility] [address] [id number] [address] [place] [address] Jun, [facility] [id number] [place] [address], [place] [id number] Jun, [facility] [address] [id number] [address] [place] [address] Apr, [facility] [id number] [place] [address], [place] [id number] Apr, [facility] [address] [id number] [facility] [address] Apr, [facility] [place] [address] [id number] [place] [id number] Mar, [facility] [address] [id number] [facility] [address] Mar, [facility] [place] [address] [id number] [place] [id number] Feb, [facility] [address] [id number] [facility] [address] Feb, [facility] [address] [id number] [address] [place] [address], [place] [address] December, [facility] [address] [id number] [facility] [address] Nov, [facility] [place] [address] [id number] [place] [id number] Nov, [facility] [address] [id number] [address] [place] [address], [place] [address] Nov, [facility] [place] [address] [id number] [place] [id number] Sep, [facility] [address] [id number] [address] [place] [address], [place] [address] Sep, [facility] [address] [id number] [address] [place] [address], [place] [address] Sep, [facility] [address] [id number] [address] [place] [address], [place] [address] Sep, [facility] [place] [address] [id number] [place] [id number] Sep, [facility] [address] [id number] [address] [place] [address], [place] [address] Sep, [facility] [address] [id number] [address] [place] [address], [place] [address] May, [facility] [address] [id number] [place] [id number] May, [facility] [address] [facility] [id number] [address] [place] [address] May, [facility] [address] [id number] [place] [id number] Apr, [facility] [address] [facility] [id number] [address] [place] [address] Feb, [facility] [address] [id number] [place] [id number] Feb, [facility] [address] [id number] [place] [id number] Jul, [facility] [address] [facility] [id number] [address] [place] [address] Jul, [facility] [address] [facility] [id number] [place] [id number] Jul, [facility] [address] [facility] [id number] [address] [place] [address] Jul, [facility] [address] [id number] [place] [id number] Mar, [facility] [place] [address] [facility] [id number] [place] [id number] Jan, IMMUNIZATIONS No Known Immunizations SOCIAL HISTORY Never Assessed REASON FOR VISIT PLAN OF CARE VITAL SIGNS MEDICATIONS Unknown Medications RESULTS No Results PROCEDURES Procedure Date Ordered Result Body Site URINE TEST Jun 22, 2014 INSTRUCTIONS MEDICATIONS ADMINISTERED No Known Medications MEDICAL (GENERAL) HISTORY Type Description Date Medical History depression Medical History right ovarian cyst Surgical History colonoscopy and EGD, normal results 2014 Surgical History at [facility] left ovarian cyst drained 11/2016 Hospitalization History pneumonia Hospitalization History Was in hospital in [place] about 3 months ago for vomiting-dehydration Hospitalization History Child
--- OUTSIDE RECORDS SUMMARY | 2020-01-05 14:57 | XMS REPORT ---
Author Author Nasim, Dash Doctor Organization [facility] Address Unknown Phone Unavailable Care Team Providers Care Pick Up Operator Name Role Phone Migration, Doctor Unavailable Unavailable PROBLEMS Type Condition ICD9-CM Code KYN71-UA Code Onset Dates Condition S tatus SNOMED Code Problem Bilious vomiting with nausea R11.14 A ctive 41494472 Problem Anxiety F41.9 Active 64983363 Problem Obsessive-compulsive behavior R46.81 Active 95877759 Problem Headache associated with hormonal factors G44.89 Active 53429136 Problem Constipation K59.00 Active 4711791 8 Problem Functional diarrhea K59.1 Active 31404635 Problem Dysthymia F34.1 Active 68671449 Problem Anxiety disorder, unspecified F41.9 Active 852334425 Problem Reactive depression F32.9 Active 50485361 ALLERGIES No Information ENCOUNTERS Encounter Location Date Diagnosis [place] [id number] [place] [address], S [id number] Aug, Constipation K59.00 and Vaginitis N76.0 [place] [id number] [place] [address], [place] [id number] Jul, Diarrhea, unspecified type R19.7 [place] [id number] [place] [address], [place] [id number] Apr, Positive test Z32.01 [place] [id number] [place] [address], [place] [id number] Mar, Concern about sexually transmitted disea se in female without diagnosis Z71.1 ; Vaginal lesion N89.8 and Vaginal candidiasis B37.3 [place] [id number] [place] [address], [place] [id number] Jan, Headache associated with hormonal factor s G44.89 and History of unprotected sex Z72.51 [place] [id number] [place] [address], [place] [id number] Oct, Acute left flank pain R10.9 ; Vaginal di scharge N89.8 ; Acute vaginitis N76.0 and Other specified bacterial agents as the cause of diseases classified elsewhere B96.89 [place] [id number] [place] [address], S [id number] Sep, Influenza J11.1 [place] [id number] [place] [address], S [id number] Feb, [address], [place] [id number] Feb, STD exposure Z20.2 ; Vaginal discharge N 89.8 ; GBS bacteriuria R82.71 ; Non- intractable vomiting with nausea, unspecified vomiting type R11.2 ; Anxiety disorder, unspecified F41.9 ; Reactive depression F32.9 ; Functional diarrhea K59.1 and Acute vaginitis N76.0 [place] [id number] [place] [address], S [id number] Jan, STD exposure Z20.2 and Dysthymia F34.1 [place] [id number] [place] [address], [place] [id number] Nov, Recent major surgery Z98.890 ; Pain R52 ; Constipation by delayed colonic transit K59.01 ; Anxiety F41.9 and Obsessive-compulsive behavior R46.81 [place] [id number] [place] [address], [place] [id number] Nov, [place] [id number] [place] [address], S [id number] Oct, Diarrhea, unspecified type R19.7 ; High risk sexual behavior Z72.51 ; Encounter for IUD removal Z30.432 ; STD exposure Z20.2 and Trichomoniasis A59.9 [place] [id number] [place] [address], [place] [id number] Oct, Dysuria R30.0 [place] [id number] [place] [address], [place] [id number] Oct, Dysuria R30.0 and Fever, unspecified R50 .9 [place] [id number] [place] [address], [place] [id number] Sep, Stomach pain R10.9 ; Bilious vomiting wi th nausea R11.14 ; Functional diarrhea K59.1 ; Anxiety F41.9 ; Obsessive-compulsive behavior R46.81 and Poor fluid intake R63.8 [facility] [id number] [place] [address], [place] [id number] Aug, [facility] [id number] [place] [address], [place] [id number] Aug, Stomach pain R10.9 ; Bilious vomiting wi th nausea R11.14 ; Functional diarrhea K59.1 ; Anxiety F41.9 ; Obsessive-compulsive behavior R46.81 and Poor fluid intake R63.8 [facility] [address], [place] [id number] Jul, Vaginal discharge N89.8 and High risk se xual behavior Z72.51 [facility] [address], [place] [id number] Mar, [place] [address], [place] [id number] Mar, test negative Z32.02 [facility] [id number] [place] [address], [place] [id number] Mar, Urinary tract infection, site not specif ied N39.0 [facility] [id number] [place] [address], [place] [id number] December, Seasonal allergic reaction J30.2 and Cou gh R05 [place] [id number] [place] [address], [place] [id number] May, Bronchitis J40 ; Mild intermittent asthm a with acute exacerbation J45.21 and Reflux gastritis K29.60 [facility] [address] [id number] [place] [id number] May, [place] [address] [id number] [place] [address], [place] [id number] May, CAP (community acquired pneumonia) J18.9 [place] [address] [id number] [place] [id number] Apr, Encounter for PPD test V74.1 [facility] [place] [address] [id number] [place] [id number] Apr, Encounter for PPD test V74.1 [facility] [place] [address] [id number] [place] [id number] Feb, Dysuria 788.1 and Bronchitis 490 [facility] [address] [facility] [id number] [address] [place] [address], [place] [address] Nov, [facility] [address] [facility] [id number] [address] [place] [address], [place] [address] Nov, [facility] [place] [address] [id number] [place] [id number] Sep, [facility] [address] [facility] [id number] [address] [place] [address], [place] [address] Sep, [facility] [address] [facility] [id number] [address] [place] [address], [place] [address] Jun, [facility] [place] [address] [facility] [id number] [place] [id number] Jun, [facility] [address] [facility] [id number] [address] [place] [address], [place] [address] Apr, [facility] [place] [address] [id number] [place] [id number] Apr, [facility] [address] [facility] [id number] [address] [place] [address], [place] [address] Apr, [facility] [place] [address] [id number] [place] [id number] Mar, [facility] [address] [facility] [id number] [address] [place] [address], [place] [address] Mar, [facility] [place] [address] [id number] [place] [id number] Feb, [facility] [address] [facility] [id number] [address] [place] [address], [place] [address] Feb, [facility] [address] [facility] [id number] [address] [place] [address] December, [facility] [address] [id number] [facility] [place] [address] Nov, [facility] [place] [address] [id number] [place] [id number] Nov, [facility] [address] [id number] [address] [place] [address], [place] [address] Nov, [facility] [place] [address] [id number] [place] [id number] Sep, [facility] [address] [id number] [address] [place] [address], [place] [address] Sep, [facility] [address] [facility] [id number] [address] [place] [address], [place] [address] Sep, [facility] [address] [facility] [id number] [address] [place] [address], [place] [address] Sep, [facility] [place] [address] [facility] [id number] [place] [id number] Sep, [facility] [address] [facility] [id number] [address] [place] [address], [place] [address] Sep, [facility] [address] [facility] [id number] [address] [place] [address], [place] [address] May, [facility] [place] [address] [facility] [id number] [place] [id number] May, [facility] [address] [facility] [id number] [address] [place] [address], [place] [address] May, [facility] [place] [address] [id number] [place] [id number] Apr, [facility] [address] [id number] [address] [place] [address], [place] [address] Feb, [facility] [place] [address] [id number] [place] [id number] Feb, [facility] [place] [address] [id number] [place] [id number] Jul, [facility] [address] [id number] [place], [place] [address] Jul, [facility] [address] [facility] [id number] [place] S [id number] Jul, [facility] [address] [facility] [id number] [place], [place] [address] Jul, [facility] [address] [facility] [id number] [place] S [id number] Mar, [facility] 120 [facility] [id number] [place] [id number] Jan, IMMUNIZATIONS No Known Immunizations SOCIAL HISTORY Never Assessed REASON FOR VISIT EMR-[facility] PLAN OF CARE VITAL SIGNS MEDICATIONS Medication Instructions Dosage Frequency Start Date End Date Duration S tatus Amoxicillin 500 mg 2 capsule by Oral route 2 times per day for 10 day(s) Mar, Active Pyridium 200 mg 1 tablet by Oral rou te 3 times per day for 3 day(s) for bladder pain Feb, Active Promethazine-DM 6.25-15 mg/5 mL 10 Ml by Oral route ev jake 4 hours PRN Sep, Active Bactrim DS 800-160 mg 1 tablet by Oral route 2 times p er day for 7 day(s) Feb, Active Azithromycin 250 mg 2 Tablet by Oral rou te on day 1 then take 1 daily for 4 days Sep, Active Nitrofurantoin Macrocrystal 100 mg 1 cap roderick by Oral route 2 times per day for 5 day(s) Sep, Active RESULTS No Results PROCEDURES No Known procedures INSTRUCTIONS MEDICATIONS ADMINISTERED No Known Medications MEDICAL (GENERAL) HISTORY Type Description Date Medical History depression Medical History right ovarian cyst Surgical History colonoscopy and EGD, normal results 2014 Surgical History at [facility] left ovarian cyst drained 11/2016 Hospitalization History pneumonia Hospitalization History Was in hospital in [place] about 3 months ago for vomiting-dehydration
--- OUTSIDE RECORDS SUMMARY | 2020-01-05 14:57 | XMS REPORT ---
Author Author Dash ESPINOZA Organization [facility], [place] Address [address] [place] [address] Care Team Providers Care Bpm Analyst Name Role Phone RAINA ESPINOZA Unavailable PROBLEMS Type Condition ICD9-CM Code [id number] Code Onset Dates Condition S tatus SNOMED Code Problem Obsessive-compulsive behavior R46.81 Active 71687553 Problem Anxiety F41.9 Active 65007489 Problem Headache associated with hormonal factors G44.89 Active 66062204 Problem Reactive depression F32.9 Active 11688301 Problem Bilious vomiting with nausea R11.14 A ctive 14671701 Problem Functional diarrhea K59.1 Active 20592605 Problem Anxiety disorder, unspecified F41.9 Active 541141276 Problem Dysthymia F34.1 Active 31420001 ALLERGIES Substance Reaction Event Type Date Status Latex hives Drug Allergy Oct, Active Macrobid vomiting/diarrhea Drug Allergy Oct, Active Benadryl anaphylaxis Drug Allergy Oct, Active ENCOUNTERS Encounter Location Date Diagnosis [place] [id number], [place] [id number] Jan, Headache associated with hormonal factor s G44.89 and History of unprotected sex Z72.51 [place] [id number] [place] [id number] Oct, Acute left flank pain R10.9 ; Vaginal di scharge N89.8 ; Acute vaginitis N76.0 and Other specified bacterial agents as the cause of diseases classified elsewhere B96.89 [place] [address] [place] [id number] [place] [id number] Sep, Influenza J11.1 [facility] [address] [id number] [place] [id number] Feb, [place] [id number] [place] [address], [place] [id number] Feb, STD exposure Z20.2 ; Vaginal discharge N 89.8 ; GBS bacteriuria R82.71 ; Non- intractable vomiting with nausea, unspecified vomiting type R11.2 ; Anxiety disorder, unspecified F41.9 ; Reactive depression F32.9 ; Functional diarrhea K59.1 and Acute vaginitis N76.0 [place] [address] [place] [id number] [place] [address], [place] [id number] Jan, STD exposure Z20.2 and Dysthymia F34.1 [place] [address] [place] [id number] [place] [address], [place] [id number] Nov, Recent major surgery Z98.890 ; Pain R52 ; Constipation by delayed colonic transit K59.01 ; Anxiety F41.9 and Obsessive-compulsive behavior R46.81 [place] [address] [place] [id number] [place] [address], [place] [id number] Nov, [address], [place] [id number] Oct, Diarrhea, unspecified type R19.7 ; High risk sexual behavior Z72.51 ; Encounter for IUD removal Z30.432 ; STD exposure Z20.2 and Trichomoniasis A59.9 [place] [id number] [place] [id number] Oct, Dysuria R30.0 [address] [place] [address], [place] [id number] Oct, Dysuria R30.0 and Fever, unspecified R50 .9 [place] [address] [place] [id number] [place] [address], [place] [id number] Sep, Stomach pain R10.9 ; Bilious vomiting wi th nausea R11.14 ; Functional diarrhea K59.1 ; Anxiety F41.9 ; Obsessive-compulsive behavior R46.81 and Poor fluid intake R63.8 [facility] [id number] [place] [id number] Aug, [place] [id number] [place] [address], [place] [id number] Aug, Stomach pain R10.9 ; Bilious vomiting wi th nausea R11.14 ; Functional diarrhea K59.1 ; Anxiety F41.9 ; Obsessive-compulsive behavior R46.81 and Poor fluid intake R63.8 [place] [id number] [place] [address], [place] [id number] Jul, Vaginal discharge N89.8 and High risk se xual behavior Z72.[address], [place] [id number] Mar, [address], [place] [id number] Mar, test negative Z32.[address], [place] [id number] Mar, Urinary tract infection, site not specif ied N39.[address], [place] [id number] December, Seasonal allergic reaction J30.2 and Cou gh R05 [address], [place] [id number] May, Bronchitis J40 ; Mild intermittent asthm a with acute exacerbation J45.21 and Reflux gastritis K29.[address], [place] [id number] May, [address], [place] [id number] May, CAP (community acquired pneumonia) J18.9 [place] [id number] [place] [address], [place] [id number] Apr, Encounter for PPD test V74.1 [place] [id number] [place] [address], [place] [id number] Apr, Encounter for PPD test V74.[address], [place] [id number] Feb, Dysuria 788.1 and Bronchitis [address] [facility] [place] [address] [place] [id number] [place] [address] Nov, [facility] [address] [id number] [address] [place] [address], [place] [address] Nov, [facility] [place] [address] [id number] [place] [id number] Sep, [facility] [address] [id number] [address] [place] [address], [place] [address] Sep, [facility] [address] [id number] [address] [place] [address], [place] [address] Jun, [facility] [place] [address] [id number] [place] [id number] Jun, [facility] [address] [id number] [address] [place] [address], [place] [address] Apr, [facility] [place] [address] [id number] [place] [id number] Apr, [facility] [address] [id number] [address] [place] [address], [place] [address] Apr, [facility] [place] [address] [id number] [place] [id number] Mar, [facility] [address] [id number] [address] [place] [address], [place] [address] Mar, [facility] [place] [address] [id number] [place] [id number] Feb, [facility] [address] [id number] [address] [place] [address], [place] [address] Feb, [facility] [address] [id number] [address] [place] [address], [place] [address] December, [facility] [address] [id number] [address] [place] [address], [place] [address] Nov, [facility] [place] [address] [id number] [place] [id number] Nov, [facility] [address] [id number] [facility] [place] [address] Nov, [facility] [place] [address] [id number] [place] [id number] Sep, [facility] [address] [id number] [address] [place] [address], [place] [address] Sep, [facility] [address] [id number] [address] [place] [address], [place] [address] Sep, [facility] [address] [facility] [id number] [address] [place] [address], [place] [address] Sep, [facility] [place] [address] [id number] [place] [id number] Sep, [facility] [address] [facility] [id number] [address] [place] [address], [place] [address] Sep, [facility] [address] [facility] [id number] [address] [place] [address], [place] [address] May, [facility] [place] [address] [id number] [place] [id number] May, [facility] [address] [facility] [id number] [address] [place] [address], [place] [address] May, [facility] [place] [address] [id number] [place] [id number] Apr, [facility] [address] [facility] [id number] [address] [place] [address], [place] [address] Feb, [facility] [place] [address] [id number] [place] [id number] Feb, [facility] [place] [address] [id number] [place] [id number] Jul, [facility] [address] [id number] [address] [place] [address], [place] [address] Jul, [facility] [place] [address] [id number] [place] [id number] Jul, [facility] [address] [facility] [id number] [address] [place] [address], [place] [address] Jul, [facility] [place] [address] [id number] [place] [id number] Mar, [facility] [address] [id number] [place] [id number] Jan, IMMUNIZATIONS No Known Immunizations SOCIAL HISTORY Never Assessed REASON FOR VISIT Pt c/o right flank pain x's 7 days. Some vaginal discharge, odor off/on Lopez phillip MA PLAN OF CARE Activity Details Follow Up prn Reason: VITAL SIGNS Height 63 in 2017-11-12 Weight 116.0 lbs 2017-11-12 Temperature 97.1 degrees Fahrenheit 2017-11-12 Heart Rate 80 bpm 2017-11-12 Respiratory Rate 16 2017-11-12 BMI 20.55 kg/m2 2017-11-12 Blood pressure systolic 116 mmHg 2017-11-12 Blood pressure diastolic 70 mmHg 2017-11-12 MEDICATIONS Medication Instructions Dosage Frequency Start Date End Date Duration S tatus Metronidazole 0.75 % Vaginal Once a day 1 application at bedtime 24 h Oct, 3 Nov, 2017 5 day(s) Active Tamsulosin HCl 0.4 MG Orally Once a day 1 capsule 24h Oct, 18 Nov, 07 days Active RESULTS No Results PROCEDURES Procedure Date Ordered Result Body Site Bacterial Vaginosis In House November 12, 2017 TRICHOMONAS ASSAY W/OPTIC November 12, 2017 URINALYSIS, AUTO, W/O SCOPE November 12, 2017 URINE TEST November 12, 2017 CHYLMD TRACH, DNA, AMP PROBE November 12, 2017 CULTURE, BACTERIA, OTHER November 12, 2017 N.GONORRHOEAE, DNA, AMP PROB November 12, 2017 INSTRUCTIONS MEDICATIONS ADMINISTERED No Known Medications MEDICAL (GENERAL) HISTORY Type Description Date Medical History depression Medical History right ovarian cyst Surgical History colonoscopy and EGD, normal results 2014 Surgical History at [facility] left ovarian cyst drained 11/2016 Hospitalization History pneumonia Hospitalization History Was in hospital in [place] about 3 months ago for vomiting-dehydration
--- OUTSIDE RECORDS SUMMARY | 2020-01-05 14:57 | XMS REPORT ---
Author Author CARDENASMichaelmarilia EVI Organization [facility] Address [address] [place] [address] Care Team Providers Care Under Water Assistant Name Role Phone EVI CARDENAS Unavailable PROBLEMS Type Condition ICD9-CM Code [id number] Code Onset Dates Condition S tatus SNOMED Code Problem Obsessive-compulsive behavior R46.81 Active 35418130 Problem Anxiety F41.9 Active 80615367 Problem Headache associated with hormonal factors G44.89 Active 43376732 Problem Reactive depression F32.9 Active 98275068 Problem Bilious vomiting with nausea R11.14 A ctive 16191527 Problem Functional diarrhea K59.1 Active 99266005 Problem Anxiety disorder, unspecified F41.9 Active 728755858 Problem Dysthymia F34.1 Active 29307640 ALLERGIES Substance Reaction Event Type Date Status Latex hives Drug Allergy Mar, Active Macrobid vomiting/diarrhea Drug Allergy Mar, Active Benadryl anaphylaxis Drug Allergy Mar, Active ENCOUNTERS Encounter Location Date Diagnosis [facility] [address] [id number] [id number] May, [address] [id number] [place] [id number] Apr, Positive test Z32.[address] [id number] [place], [place] [id number] Mar, Concern about sexually transmitted disea se in female without diagnosis Z71.1 ; Vaginal lesion N89.8 and Vaginal candidiasis B37.[address] [id number] [place] [id number] Jan, Headache associated with hormonal factor s G44.89 and History of unprotected sex Z72.[address] [id number] [place] [id number] Oct, Acute left flank pain R10.9 ; Vaginal di scharge N89.8 ; Acute vaginitis N76.0 and Other specified bacterial agents as the cause of diseases classified elsewhere B96.89 [place] [id number] [place] [address], [place] [id number] Sep, Influenza J11.1 [place] [id number] [place] [id number] Feb, [address], [place] [id number] Feb, STD exposure Z20.2 ; Vaginal discharge N 89.8 ; GBS bacteriuria R82.71 ; Non- intractable vomiting with nausea, unspecified vomiting type R11.2 ; Anxiety disorder, unspecified F41.9 ; Reactive depression F32.9 ; Functional diarrhea K59.1 and Acute vaginitis N76.0 [place] [id number] [place] [address], [place] [id number] Jan, STD exposure Z20.2 and Dysthymia F34.1 [place] [id number] [place] [address], [place] [id number] Nov, Recent major surgery Z98.890 ; Pain R52 ; Constipation by delayed colonic transit K59.01 ; Anxiety F41.9 and Obsessive-compulsive behavior R46.81 [address] [place] [address], [place] [id number] Nov, [place] [id number] [place] [address], [place] [id number] Oct, Diarrhea, unspecified type R19.7 ; High risk sexual behavior Z72.51 ; Encounter for IUD removal Z30.432 ; STD exposure Z20.2 and Trichomoniasis A59.9 [place] [id number] [place] [address], [place] [id number] Oct, Dysuria R30.0 [place] [id number] [place] [address], [place] [id number] Oct, Dysuria R30.0 and Fever, unspecified R50 .9 [place] [id number] [place] [address], [place] [id number] Sep, 2016 Stomach pain R10.9 ; Bilious vomiting wi th nausea R11.14 ; Functional diarrhea K59.1 ; Anxiety F41.9 ; Obsessive-compulsive behavior R46.81 and Poor fluid intake R63.8 [facility] [address] [place] [id number] [place] [address], [place] [id number] Aug, [facility] [address] [place] [id number] [place] [address], [place] [id number] Aug, Stomach pain R10.9 ; Bilious vomiting wi th nausea R11.14 ; Functional diarrhea K59.1 ; Anxiety F41.9 ; Obsessive-compulsive behavior R46.81 and Poor fluid intake R63.8 [place] [address], [place] [id number] Jul, Vaginal discharge N89.8 and High risk se xual behavior Z72.51 [place] [address], [place] [id number] Mar, [place] [address], [place] [id number] Mar, test negative Z32.02 [facility] [address] [place] [id number] [place] [address], [place] [id number] Mar, Urinary tract infection, site not specif ied N39.0 [facility] [address] [place] [id number] [place] [address], [place] [id number] December, Seasonal allergic reaction J30.2 and Cou gh R05 [place] [address], [place] [id number] May, Bronchitis J40 ; Mild intermittent asthm a with acute exacerbation J45.21 and Reflux gastritis K29.60 [place] [address] [place] [id number] [place] [address], [place] [id number] May, [address], [place] [id number] May, CAP (community acquired pneumonia) J18.9 [place] [address] [place] [id number] [place] [address], [place] [id number] Apr, Encounter for PPD test V74.1 [place] [address] [id number] [place] [id number] Apr, Encounter for PPD test V74.1 [facility] [place] [address] [id number] [place] [id number] Feb, Dysuria 788.1 and Bronchitis [address] [facility] [address] [facility] [id number] [address] [place] [address], [place] [address] Nov, [facility] [address] [facility] [id number] [address] [place] [address] Nov, [facility] [place] [address] [place] [address] [id number] [place] [id number] Sep, [facility] [address] [facility] [id number] [address] [place] [address], [place] [address] Sep, [facility] [address] [facility] [id number] [address] [place] [address], [place] [address] Jun, [facility] [place] [address] [place] [address] [id number] [place] [id number] Jun, [facility] [address] [facility] [id number] [address] [place] [address], [place] [address] Apr, [facility] [place] [address] [place] [address] [id number] [place] [id number] Apr, [facility] [address] [facility] [id number] [address] [place] [address], [place] [address] Apr, [facility] [address] [place] [address] [id number] [place] [id number] Mar, [facility] [address] [facility] [id number] [address] [place] [address], [place] [address] Mar, [facility] [place] [address] [place] [address] [id number] [place] [id number] Feb, [facility] [address] [facility] [id number] [address] [place] [address], [place] [address] Feb, [facility] [address] [facility] [id number] [address] [place] [address] December, [facility] [address] [id number] [address] [place] [address], [place] [address] Nov, [facility] [place] [address] [place] [address] [id number] [place] [id number] Nov, [facility] [address] [facility] [id number] [address] [place] [address], [place] [address] Nov, [facility] [place] [address] [place] [address] [id number] [place] [id number] Sep, [facility] [address] [id number] [address] [place] [address], [place] [address] Sep, [facility] [address] [facility] [id number] [address] [place] [address], [place] [address] Sep, [facility] [address] [facility] [id number] [address] [place] [address], [place] [address] Sep, [facility] [place] [address] [facility] [place] [id number] [place] [id number] Sep, [facility] [address] [facility] [id number] [address] [place] [address], [place] [address] Sep, [facility] [address] [facility] [id number] [address] [place] [address], [place] [address] May, [facility] [place] [address] [facility] [place] [id number] [place] [id number] May, [facility] [address] [facility] [id number] [address] [place] [address], [place] [address] May, [facility] [place] [address] [place] [address] [id number] [place] [id number] Apr, [facility] [address] [facility] [id number] [address] [place] [address], [place] [address] Feb, [facility] [place] [address] [place] [address] [id number] [place] [id number] Feb, [facility] [place] [address] [place] [address] [id number] [place] [id number] Jul, [facility] [address] [facility] [id number] [address] [place] [address] Jul, [facility] [place] [address] [facility] [id number] [place], [place] [id number] Jul, [facility] [address] [facility] [id number] [address] [place] [address] Jul, [facility] [address] [facility] [place] [id number] [place], [place] [id number] Mar, [facility] [address] [facility] [place] [id number] [place], [place] S [id number] Jan, IMMUNIZATIONS No Known Immunizations SOCIAL HISTORY Never Assessed REASON FOR VISIT Was shaving vaginal area this morning and noticed abnormal some bumps that are c oncerning Matilde DRUMMOND PLAN OF CARE Activity Details Follow Up 2 - 3 Days, prn Reason: VITAL SIGNS Height 63 in 2018-04-07 Weight 114 lbs 2018-04-07 Temperature 98.1 degrees Fahrenheit 2018-04-07 Heart Rate 78 bpm 2018-04-07 Respiratory Rate 16 2018-04-07 BMI 20.19 kg/m2 2018-04-07 Blood pressure systolic 110 mmHg 2018-04-07 Blood pressure diastolic 68 mmHg 2018-04-07 MEDICATIONS Medication Instructions Dosage Frequency Start Date End Date Duration S tatus Diflucan 150 MG Orally one time 1 tablet Mar, 1 dose Active RESULTS No Results PROCEDURES Procedure Date Ordered Result Body Site CHYLMD TRACH, DNA, AMP PROBE Apr 07, 2018 N.GONORRHOEAE, DNA, AMP PROB Apr 07, 2018 URINE CULTURE/COLONY COUNT Apr 07, 2018 TRICHOMONAS ASSAY W/OPTIC Apr 07, 2018 CULTURE, BACTERIA, OTHER Apr 07, 2018 URINALYSIS, AUTO, W/O SCOPE Apr 07, 2018 Bacterial Vaginosis In House Apr 07, 2018 INSTRUCTIONS MEDICATIONS ADMINISTERED No Known Medications MEDICAL (GENERAL) HISTORY Type Description Date Medical History depression Medical History right ovarian cyst Surgical History colonoscopy and EGD, normal results 2014 Surgical History at [facility] left ovarian cyst drained 11/2016 Hospitalization History pneumonia Hospitalization History Was in hospital in [place] about 3 months ago for vomiting-dehydration
--- OUTSIDE RECORDS SUMMARY | 2020-01-05 14:57 | XMS REPORT ---
Author Author Nasim, Dsah Doctor Organization [facility] Address Unknown Phone Unavailable Care Team Providers Care Statement Clerks Supervisor Name Role Phone Migration, Doctor Unavailable Unavailable PROBLEMS Type Condition ICD9-CM Code GXU02-VT Code Onset Dates Condition S tatus SNOMED Code Problem Anxiety F41.9 Active 80612517 Problem Obsessive-compulsive behavior R46.81 Active 09615230 Problem Functional diarrhea K59.1 Active 58921291 Problem Constipation K59.00 Active 1007994 8 Problem Depressive disorder F32.9 Active 05951167 Problem Bilious vomiting with nausea R11.14 A ctive 80759207 Problem Dysthymia F34.1 Active 29488113 Problem Anxiety disorder, unspecified F41.9 Active 291498685 Problem Headache associated with hormonal factors G44.89 Active 63201913 ALLERGIES No Information ENCOUNTERS Encounter Location Date Diagnosis [facility] [id number] [place] [id number] Apr, Depressive disorder F32.9 [place] [address] [id number] [place] [id number] Mar, [facility] [address] [id number] [place] [id number] Feb, Urinary tract infection, site not specif ied N39.0 ; Hematuria, unspecified R31.9 and Dysuria R30.0 [facility] [address] [id number] [place] [id number] Jan, Depressive disorder F32.9 and Anxiety di sorder, unspecified F41.9 [facility] [address] [id number] [place] [id number] Nov, [facility] [address] [facility] [id number] [place] [id number] Aug, Constipation K59.00 and Vaginitis N76.0 [facility] [address] [id number] [place] [id number] Jul, Diarrhea, unspecified type R19.7 [address] [place] [address], [place] [id number] Apr, Positive test Z32.01 [place] [id number] [place] [address], [place] [id number] Mar, Concern about sexually transmitted disea se in female without diagnosis Z71.1 ; Vaginal lesion N89.8 and Vaginal candidiasis B37.3 [place] [id number] [place] [address], [place] [id number] Jan, Headache associated with hormonal factor s G44.89 and History of unprotected sex Z72.51 [place] [id number] [place] [address], S [id number] Oct, Acute left flank pain R10.9 ; Vaginal di scharge N89.8 ; Acute vaginitis N76.0 and Other specified bacterial agents as the cause of diseases classified elsewhere B96.89 [place] [id number] [place] [address], [place] [id number] Sep, Influenza J11.[address] [place] [address], [place] [id number] Feb, [place] [id number] [place] [address], [place] [id number] Feb, STD exposure Z20.2 ; Vaginal discharge N 89.8 ; GBS bacteriuria R82.71 ; Non- intractable vomiting with nausea, unspecified vomiting type R11.2 ; Anxiety disorder, unspecified F41.9 ; Reactive depression F32.9 ; Functional diarrhea K59.1 and Acute vaginitis N76.[address] [place] [address], [place] [id number] Jan, STD exposure Z20.2 and Dysthymia F34.1 [place] [id number] [place] [address], [place] [id number] Nov, Recent major surgery Z98.890 ; Pain R52 ; Constipation by delayed colonic transit K59.01 ; Anxiety F41.9 and Obsessive-compulsive behavior R46.81 [place] [id number] [id number] Nov, [facility] [id number] [place] [id number] Oct, Diarrhea, unspecified type R19.7 ; High risk sexual behavior Z72.51 ; Encounter for IUD removal Z30.432 ; STD exposure Z20.2 and Trichomoniasis A59.9 [facility] [id number] [place] [address], [place] [id number] Oct, Dysuria R30.0 [facility] [id number] [place] [address], [place] [id number] Oct, Dysuria R30.0 and Fever, unspecified R50 .9 [facility] [id number] [place] [address], [place] [id number] Sep, Stomach pain R10.9 ; Bilious vomiting wi th nausea R11.14 ; Functional diarrhea K59.1 ; Anxiety F41.9 ; Obsessive-compulsive behavior R46.81 and Poor fluid intake R63.8 [facility] [id number] [place] [id number] Aug, [facility] [id number] [place] [address], [place] [id number] Aug, Stomach pain R10.9 ; Bilious vomiting wi th nausea R11.14 ; Functional diarrhea K59.1 ; Anxiety F41.9 ; Obsessive-compulsive behavior R46.81 and Poor fluid intake R63.8 [facility] [id number] [place] [id number] Jul, Vaginal discharge N89.8 and High risk se xual behavior Z72.51 [facility] [id number] [place] [id number] Mar, [facility] [id number] [place] [address], [place] [id number] Mar, test negative Z32.02 [facility] [id number] [place] [id number] Mar, Urinary tract infection, site not specif ied N39.0 [facility] [address] [id number] [place] [id number] December, Seasonal allergic reaction J30.2 and Cou gh R05 [facility] [place] [address] [id number] May, Bronchitis J40 ; Mild intermittent asthm a with acute exacerbation J45.21 and Reflux gastritis K29.60 [facility] [address], [place] [id number] May, [facility] [address], [place] [id number] May, CAP (community acquired pneumonia) J18.9 [place] [address], [place] [id number] Apr, Encounter for PPD test V74.[address], [place] [id number] Apr, Encounter for PPD test V74.1 [facility] [address], [place] [id number] Feb, Dysuria 788.1 and Bronchitis 490 [facility] [address] [address] Nov, [facility] [id number] [place] [address] Nov, [facility] [id number] [place] [address], [place] [id number] Sep, [facility] [address] [id number] [place] [address] Sep, [facility] [address] [id number] [address] [place] [address] Jun, [facility] [id number] [place] [address], [place] [id number] Jun, [facility] [address] [id number] [address] [place] [address] Apr, [facility] [id number] [place] [address], [place] [id number] Apr, [facility] [address] [id number] [facility] [place] [address] Apr, [facility] [place] [address] [id number] [place] [id number] Mar, [facility] [address] [id number] [facility] [place] [address] Mar, [facility] [place] [address] [id number] [place] [id number] Feb, [facility] [address] [id number] [facility] [place] [address] Feb, [facility] [address] [id number] [address] [place] [address], [place] [address] December, [facility] [address] [id number] [facility] [place] [address] Nov, [facility] [place] [address] [id number] [place] [id number] Nov, [facility] [address] [id number] [address] [place] [address], [place] [address] Nov, [facility] [place] [address] [id number] [place] [id number] Sep, [facility] [address] [id number] [address] [place] [address], [place] [address] Sep, [facility] [address] [id number] [address] [place] [address], [place] [address] Sep, [facility] [address] [id number] [address] [place] [address], [place] [address] Sep, [facility] [place] [address] [id number] [place] [id number] Sep, [facility] [address] [id number] [address] [place] [address], [place] [address] Sep, [facility] [address] [id number] [address] [place] [address], [place] [address] May, [facility] [address] [id number] [place] [id number] May, [facility] [address] [id number] [address] [place] [address] May, [facility] [address] [id number] [place] [id number] Apr, [facility] [address] [facility] [id number] [address] [place] [address] Feb, [facility] [address] [id number] [place] [id number] Feb, [facility] [address] [id number] [place] [id number] Jul, [facility] [address] [facility] [id number] [address] [place] [address] Jul, [facility] [address] [id number] [place] [id number] Jul, [facility] [address] [id number] [address] [place] [address] Jul, [facility] [address] [id number] [place] [id number] Mar, [facility] [address] [id number] [place] [id number] Jan, IMMUNIZATIONS No Known Immunizations SOCIAL HISTORY Never Assessed REASON FOR VISIT PLAN OF CARE VITAL SIGNS Height 63 in 2014-02-21 Weight 123.2 lbs 2014-02-21 Temperature 97.2 degrees Fahrenheit 2014-02-21 Heart Rate 68 bpm 2014-02-21 Respiratory Rate 14 2014-02-21 Blood pressure systolic 108 mmHg 2014-02-21 Blood pressure diastolic 62 mmHg 2014-02-21 MEDICATIONS Unknown Medications RESULTS No Results PROCEDURES Procedure Date Ordered Result Body Site URINALYSIS, AUTO, W/O SCOPE February 21, 2014 INSTRUCTIONS MEDICATIONS ADMINISTERED No Known Medications MEDICAL (GENERAL) HISTORY Type Description Date Medical History depression Medical History right ovarian cyst Surgical History colonoscopy and EGD, normal results 2014 Surgical History at [facility] left ovarian cyst drained 11/2016 Hospitalization History pneumonia Hospitalization History Was in hospital in [place] about 3 months ago for vomiting-dehydration Hospitalization History Child
--- OUTSIDE RECORDS SUMMARY | 2020-01-05 14:58 | XMS REPORT | Continuity of Care Document ---
Author Organization Unknown Address Unknown Phone Unavailable Allergies There is no data. Medications There is no data. Problems Date Dx Coded Attending Type Code Diagnosis Diagnosed By 03/23/2008 JAILYN PETERS MD 599. 0 URINARY TRACT INFECTION 03/23/2008 AJILYN PETERS MD 789. 00 COLIC INFANTILE 03/23/2008 NOEL TASIA LIMON K 599.0 URINARY TRACT INFECTION 03/23/2008 NOEL DO, TASIA K 789.00 COLIC INFANTILE 03/23/2008 NOEL DO, TASIA K 599.0 URINARY TRACT INFECTION 03/23/2008 NOEL , TASIA K 789.00 COLIC INFANTILE 03/23/2008 KRISTEN PONCE APRN 599.0 URINARY TRACT INFECTION 03/23/2008 KRISTEN PONCE APRN 789.00 COLIC INFANTILE 03/23/2008 NOEL DO, TASIA K 599.0 URINARY TRACT INFECTION 03/23/2008 NOEL DO, TASIA K 789.00 COLIC INFANTILE 03/23/2008 NOEL DO, TASIA K 599.0 URINARY TRACT INFECTION 03/23/2008 NOEL DO, TASIA K 789.00 COLIC INFANTILE 03/23/2008 NOEL DO, TASIA K 599.0 URINARY TRACT INFECTION 03/23/2008 NOEL DO, TASIA K 789.00 COLIC INFANTILE 05/14/2009 JAILYN PETERS MD V06. 5 DT, TETANUS-DIPHTHERIA [Td] ,TDAP 05/14/2009 TASIA NOEL DO V06.5 DT, TETANUS-DIPHTHERIA [Td] ,TDAP 05/14/2009 TASIA NOEL DO V06.5 DT, TETANUS-DIPHTHERIA [Td] ,TDAP 05/14/2009 KRISTEN PONCE APRN V06.5 DT, TETANUS-DIPHTHERIA [Td] ,TDAP 05/14/2009 TASIA NOEL DO V06.5 DT, TETANUS-DIPHTHERIA [Td] ,TDAP 05/14/2009 NOEL DO, TASIA K V06.5 DT, TETANUS-DIPHTHERIA [Td] ,TDAP 05/14/2009 NOEL DO, TASIA K V06.5 DT, TETANUS-DIPHTHERIA [Td] ,TDAP 04/08/2010 JAILYN PETERS MD 724. 5 BACKACHE UNSPECIFIED 04/08/2010 JAILNY PETERS MD 788. 63 URINARY URGENCY 04/08/2010 NOEL DO, TASIA K 724.5 BACKACHE UNSPECIFIED 04/08/2010 NOEL DO, TASIA K 788.63 URINARY URGENCY 04/08/2010 NOEL DO, TASIA K 724.5 BACKACHE UNSPECIFIED 04/08/2010 NOEL DO, TASIA K 788.63 URINARY URGENCY 04/08/2010 KRISTEN PONCE APRN 724.5 BACKACHE UNSPECIFIED 04/08/2010 KRISTEN PONCE APRN 788.63 URINARY URGENCY 04/08/2010 NOEL DO, TASIA K 724.5 BACKACHE UNSPECIFIED 04/08/2010 NOEL DO, TASIA K 788.63 URINARY URGENCY 04/08/2010 NOEL DO, TASIA K 724.5 BACKACHE UNSPECIFIED 04/08/2010 NOEL DO, TASIA K 788.63 URINARY URGENCY 04/08/2010 NOEL DO, TASIA K 724.5 BACKACHE UNSPECIFIED 04/08/2010 NOEL DO, TASIA K 788.63 URINARY URGENCY 09/16/2010 JAILYN PETERS MD 478. 19 OTHER DISEASES OF NASAL CAVITY AND SINUSES 09/16/2010 JAILYN PETERS MD 786. 2 COUGH 09/16/2010 NOEL DO, TASIA K 478.19 OTHER DISEASES OF NASAL CAVITY AND SINUSES 09/16/2010 NOEL DO, TASIA K 786.2 COUGH 09/16/2010 NOEL DO, TASIA K 478.19 OTHER DISEASES OF NASAL CAVITY AND SINUSES 09/16/2010 NOEL DO, TASIA K 786.2 COUGH 09/16/2010 KRISTEN PONCE APRN 478.19 OTHER DISEASES OF NASAL CAVITY AND SINUSES 09/16/2010 KRISTEN PONCE APRN 786.2 COUGH 09/16/2010 NOEL DO, TASIA K 478.19 OTHER DISEASES OF NASAL CAVITY AND SINUSES 09/16/2010 NOEL DO TASIA K 786.2 COUGH 09/16/2010 NOEL DO, TASIA K 478.19 OTHER DISEASES OF NASAL CAVITY AND SINUSES 09/16/2010 NOEL DO, TASIA K 786.2 COUGH 09/16/2010 NOEL DO, TASIA K 478.19 OTHER DISEASES OF NASAL CAVITY AND SINUSES 09/16/2010 NOEL DO, TASIA K 786.2 COUGH 02/02/2012 JAILYN PETERS MD 626. 2 MENORRHAGIA 02/02/2012 JAILYN PETERS MD V25. 01 CONTRACEPTION - ORAL CONTRACEPTION 02/02/2012 NOEL DO, TASIA K 626.2 MENORRHAGIA 02/02/2012 NOEL DO, TASIA K V25.01 CONTRACEPTION - ORAL CONTRACEPTION 02/02/2012 NOEL DO, TASIA K 626.2 MENORRHAGIA 02/02/2012 NOEL DO, TASIA K V25.01 CONTRACEPTION - ORAL CONTRACEPTION 02/02/2012 KRISTEN PONCE APRN 626.2 MENORRHAGIA 02/02/2012 KRISTEN PONCE APRN V25.01 CONTRACEPTION - ORAL CONTRACEPTION 02/02/2012 NOEL DO, TASIA K 626.2 MENORRHAGIA 02/02/2012 NOEL DO, TASIA K V25.01 CONTRACEPTION - ORAL CONTRACEPTION 02/02/2012 NOEL DO, TASIA K 626.2 MENORRHAGIA 02/02/2012 NOEL DO, TASIA K V25.01 CONTRACEPTION - ORAL CONTRACEPTION 02/02/2012 NOEL DO, TASIA K 626.2 MENORRHAGIA 02/02/2012 NOEL DO, TASIA K V25.01 CONTRACEPTION - ORAL CONTRACEPTION 04/01/2012 JAILYN PETERS MD 698. 9 PRURITUS NOS 04/01/2012 JAILYN PETERS MD V70. 3 SPORTS PHYSICAL 04/01/2012 NOEL DO, TASIA K 698.9 PRURITUS NOS 04/01/2012 NOEL DO, TASIA K V70.3 SPORTS PHYSICAL 04/01/2012 NOEL DO, TASIA K 698.9 PRURITUS NOS 04/01/2012 NOEL DO, TASIA K V70.3 SPORTS PHYSICAL 04/01/2012 KRISTEN PONCE APRN 698.9 PRURITUS NOS 04/01/2012 KRISTEN PONCE APRN V70.3 SPORTS PHYSICAL 04/01/2012 NOEL DO, TASIA K 698.9 PRURITUS NOS 04/01/2012 NOEL DO, TASIA K V70.3 SPORTS PHYSICAL 04/01/2012 NOEL DO, TASIA K 698.9 PRURITUS NOS 04/01/2012 NOEL DO, TASIA K V70.3 SPORTS PHYSICAL 04/01/2012 NOEL DO, TASIA K 698.9 PRURITUS NOS 04/01/2012 NOEL DO, TASIA K V70.3 SPORTS PHYSICAL 07/28/2012 FRAN SAMUELS, JAILYN 782. 1 skin: a rash [as Sx] 07/28/2012 NOEL DO, TASIA K 782.1 skin: a rash [as Sx] 07/28/2012 NOEL DO, TASIA K 782.1 skin: a rash [as Sx] 07/28/2012 KRISTEN PONCE APRN 782.1 skin: a rash [as Sx] 07/28/2012 NOEL DO, TASIA K 782.1 skin: a rash [as Sx] 07/28/2012 NOEL DO, TASIA K 782.1 skin: a rash [as Sx] 07/28/2012 NOEL DO, TASIA K 782.1 skin: a rash [as Sx] 06/10/2013 NOEL DO, TASIA K 112.1 CANDIDIASIS OF VULVA AND VAGINA 06/10/2013 KRISTEN PONCE APRN 112.1 CANDIDIASIS OF VULVA AND VAGINA 06/10/2013 NOEL DO, TASIA K 112.1 CANDIDIASIS OF VULVA AND VAGINA 06/10/2013 NOEL DO, TASIA K 112.1 CANDIDIASIS OF VULVA AND VAGINA 06/10/2013 NOEL DO, TASIA K 112.1 CANDIDIASIS OF VULVA AND VAGINA 02/21/2014 NOEL DO, TASIA K 788.1 DYSURIA 02/21/2014 NOEL DO, TASIA K 788.1 DYSURIA 04/12/2014 NOEL DO, TASIA K 462 ACUTE PHARYNGITIS Procedures Code Description [place] [address] UA L YOGI DIP 05/13/2013 03619 UA L YOGI DIP 06/10/2013 42872 GC/C HLAM URINE (STATE) 06/10/2013 54702 PREG CONCEPCIÓN TEST, URINE (IN- HOUSE) 09/29/2013 53222 UA L YOGI DIP 09/29/2013 95117 UA L YOGI DIP 12/13/2013 66308 CULT URE URINE 12/13/2013 GC/CHLAM G C/CHLAMYDIA PROBE/URINE 12/13/2013 83884 UA L YOGI DIP 02/21/2014 88605 STRE P A (IN-HOUSE) 04/12/2014 Results Test Result Range GC/CHLAMYDIA (SWAB OR URINE)-RAPID - 10:32 CHLAMYDIA TRACHOMATIS RNA, TMA NOT DETECTED NOT DETECTED NEISSERIA GONORRHOEAE RNA, TMA NOT DETECTED NOT DETECTED COMMENT NRG CULTURE, GENITAL - 11/12/17 10:32 CULTURE, GENITAL SEE NOTE NRG GC/CHLAMYDIA (SWAB OR URINE)-RAPID - 11:18 CHLAMYDIA TRACHOMATIS RNA, TMA NOT DETECTED NOT DETECTED NEISSERIA GONORRHOEAE RNA, TMA NOT DETECTED NOT DETECTED COMMENT NRG CULTURE, URINE - 04/07/18 11:18 CULTURE, URINE, ROUTINE SEE NOTE NRG CULTURE, GENITAL - 04/07/18 11:18 CULTURE, GENITAL SEE NOTE NRG CULTURE, URINE - 03/04/19 12:27 CULTURE, URINE, ROUTINE SEE NOTE NRG ANTIBODY SCREEN - 11/07/19 15:46 ANTIBODY SCREEN, RBC W/REFL ID, TITER AND AG NO ANTIBODIES DETECTED NRG GC/CHLAMYDIA (SWAB OR URINE)-RAPID - 15:46 CHLAMYDIA TRACHOMATIS RNA, TMA NOT DETECTED NOT DETECTED NEISSERIA GONORRHOEAE RNA, TMA NOT DETECTED NOT DETECTED COMMENT NRG SUREPATH PAP RFX HPV mRNA E6/E7 - 15:46 CLINICAL INFORMATION: NRG LMP: 08/30/2019 NRG PREV. PAP: NRG PREV. BX: NRG SOURCE: Vagina NRG STATEMENT OF ADEQUACY: NRG INTERPRETATION/RESULT: NRG GUMMED TAPE PRESS OPERATOR: NRG GENERAL CATEGORIZATION: NRG COMMENT: NRG PATHOLOGIST: NRG COMMENT NRG Encounters ACCT No. Visit Date/Time Discharge Status Pt. Type Provider Facility Loc./Unit Complaint [id number] 09/18/2014 15:52:00 09/18/2014 23:59: 59 CLS Outpatient TASIA NOEL DO [id number] 04/12/2014 09:39:00 04/12/2014 23:59: 59 CLS Outpatient TASIA NOEL DO [id number] 02/21/2014 14:21:00 02/21/2014 23:59: 59 CLS Outpatient TASIA NOEL DO [id number] 12/13/2013 15:11:00 12/13/2013 23:59: 59 CLS Outpatient TASIA NOEL DO [id number] 09/29/2013 15:44:00 09/29/2013 23:59: 59 CLS Outpatient DIANA PONCE APRNSIStanislaw [place] [id number] 06/10/2013 16:09:00 06/10/2013 23:59: 59 CLS Outpatient TASIA NOEL DO [id number] 05/13/2013 14:48:00 05/13/2013 23:59: 59 CLS Outpatient TASIA NOEL DO [id number] 07/28/2012 15:44:00 07/28/2012 23:59: 59 [place] [id number] 12/08/2019 14:00:00 12/08/2019 23:59:5 9 CLS Outpatient EVI CARDENAS [facility] [id number] 11/07/2019 15:00:00 Document Registration [id number] 03/04/2019 11:00:00 Document Registration [id number] 04/07/2018 09:40:00 Document Registration [id number] 11/12/2017 08:40:00 Document Registration
--- OUTSIDE RECORDS SUMMARY | 2020-01-05 14:58 | XMS REPORT ---
Author Author Dash LEAL Organization [facility] Address [address] [place] [address] Care Team Providers Care Mattress And Boxsprings Supervisor Name Role Phone MANDI LEAL Unavailable PROBLEMS Type Condition ICD9-CM Code FIS89-AD Code Onset Dates Condition S tatus SNOMED Code Problem Stomach pain R10.9 Active 2192513 02 Problem Obsessive-compulsive behavior R46.81 Active 92506851 Problem Anxiety F41.9 Active 44821526 Problem Excessive or frequent menstruation 626.2 Active 378724306 Problem CAP (community acquired pneumonia) J18.9 Active 537298675 Problem Bilious vomiting with nausea R11.14 A ctive 01317978 Problem Anxiety disorder, unspecified F41.9 Active 610177716 Problem Reactive depression F32.9 Active 44921501 Problem Constipation by delayed colonic transit K59.01 Active 89326975 Problem Functional diarrhea K59.1 Active 23466691 Problem Non-intractable vomiting with nausea, unspecified vomi ting type R11.2 Active 33740165 Problem Dysthymia F34.1 Active 59691789 ALLERGIES Substance Reaction Event Type Date Status Latex hives Drug Allergy Jan, Active Macrobid vomiting/diarrhea Drug Allergy Jan, Active Benadryl anaphylaxis Drug Allergy Jan, Active ENCOUNTERS Encounter Location Date Diagnosis [facility] [address] [facility] [id number] [place] [id number] Sep, Influenza J11.1 [facility] [address] [facility] [id number] [place] [id number] Feb, [address] [id number] [place] [id number] Feb, STD exposure Z20.2 ; Vaginal discharge N 89.8 ; GBS bacteriuria R82.71 ; Non- intractable vomiting with nausea, unspecified vomiting type R11.2 ; Anxiety disorder, unspecified F41.9 ; Reactive depression F32.9 ; Functional diarrhea K59.1 and Acute vaginitis N76.0 [facility] [address] [id number] [place] [id number] Jan, STD exposure Z20.2 and Dysthymia F34.1 [facility] [address] [id number] [place] [id number] Nov, Recent major surgery Z98.890 ; Pain R52 ; Constipation by delayed colonic transit K59.01 ; Anxiety F41.9 and Obsessive-compulsive behavior R46.81 [facility] [address] [id number] [place] [id number] Nov, [facility] [address] [id number] [place] [id number] Oct, Diarrhea, unspecified type R19.7 ; High risk sexual behavior Z72.51 ; Encounter for IUD removal Z30.432 ; STD exposure Z20.2 and Trichomoniasis A59.9 [facility] [address] [id number] [place] [id number] Oct, Dysuria R30.0 [facility] [address] [id number] [place] [id number] Oct, Dysuria R30.0 and Fever, unspecified R50 .9 [facility] [address] [id number] [place] [id number] Sep, Stomach pain R10.9 ; Bilious vomiting wi th nausea R11.14 ; Functional diarrhea K59.1 ; Anxiety F41.9 ; Obsessive-compulsive behavior R46.81 and Poor fluid intake R63.8 [facility] [address] [id number] [place] [id number] Aug, [facility] [place] [address] [id number] [place] [id number] Aug, Stomach pain R10.9 ; Bilious vomiting wi th nausea R11.14 ; Functional diarrhea K59.1 ; Anxiety F41.9 ; Obsessive-compulsive behavior R46.81 and Poor fluid intake R63.8 [facility] [address] [id number] [place] [id number] Jul, Vaginal discharge N89.8 and High risk se xual behavior Z72.51 [place] [id number] [place] [id number] Mar, [place] [id number] [place] [address], [place] [id number] Mar, test negative Z32.02 [place] [id number] [place] [address], [place] [id number] Mar, Urinary tract infection, site not specif ied N39.0 [facility] [address] [place] [id number] [place] [address], [place] [id number] December, Seasonal allergic reaction J30.2 and Cou gh R05 [place] [id number] [place] [address], [place] [id number] May, Bronchitis J40 ; Mild intermittent asthm a with acute exacerbation J45.21 and Reflux gastritis K29.[address] [place] [id number] [place] [address], S [id number] May, [place] [id number] [place] [address], [place] [id number] May, CAP (community acquired pneumonia) J18.9 [place] [id number] [place] [address], [place] [id number] Apr, Encounter for PPD test V74.1 [address] [place] [address], [place] [id number] Apr, Encounter for PPD test V74.1 [place] [id number] [place] [address], [place] [id number] Feb, Dysuria 788.1 and Bronchitis [address] [facility] [address] [place] [id number] [address] [place] [phone] Nov, [facility] [address] [place] [id number] [address] [place] [phone] Nov, [id number] [place] [address], [place] [id number] Sep, [facility] [address] [place] [id number] [facility] [place] [address] Sep, [facility] [address] [id number] [facility] [place] [address] Jun, [facility] [place] [address] [id number] [place] [id number] Jun, [facility] [address] [id number] [facility] [place] [address] Apr, [facility] [place] [address] [id number] [place] [id number] Apr, [facility] [address] [id number] [address] [place] [address], [place] [address] Apr, [facility] [place] [address] [id number] [place] [id number] Mar, [facility] [address] [id number] [address] [place] [address], [place] [address] Mar, [facility] [place] [address] [id number] [place] [id number] Feb, [facility] [address] [id number] [address] [place] [address], [place] [phone] Feb, [facility] [address] [id number] [address] [place] [address], [place] [address] December, [facility] [address] [id number] [address] [place] [address], [place] [address] Nov, [facility] [place] [address] [id number] [place] [id number] Nov, [facility] [address] [id number] [address] [place] [address], [place] [address] Nov, [facility] [place] [address] [id number] [place] [id number] Sep, [facility] [address] [id number] [facility] [place] [address] Sep, [facility] [address] [id number] [address] [place] [address] Sep, [facility] [address] [facility] [id number] [address] [place] [id number] Sep, [facility] [place] [address] [id number] [place] [id number] Sep, [facility] [address] [facility] [id number] [address] [place] [phone] Sep, [facility] [address] [facility] [id number] [address] [place] [phone] May, [facility] [place] [address] [id number] [place] [id number] May, [facility] [address] [facility] [id number] [address] [place] [phone] May, [facility] [place] [address] [id number] [place] [id number] Apr, [facility] [address] [facility] [id number] [address] [place] [phone] Feb, [facility] [place] [address] [id number] [place] [id number] Feb, [facility] [place] [address] [id number] [place] [id number] Jul, [facility] [address] [facility] [id number] [address] [place] [address] Jul, [facility] [place] [address] [id number] [place] [id number] Jul, [facility] [address] [id number] [address] [place] [phone] Jul, [facility] [place] [address] [id number] [place] [id number] Mar, [facility] [place] [address] [id number] [place] [id number] Jan, IMMUNIZATIONS No Known Immunizations SOCIAL HISTORY Never Assessed REASON FOR VISIT wanting to be checked for STD's, states her partner was told he may have a STD. Having burning with urination. edie Kaufman PLAN OF CARE Activity Details Follow Up 2 Weeks Reason:depression f /u VITAL SIGNS Height 63 in 2017-01-22 Weight 114.8 lbs 2017-01-22 Temperature 98.3 degrees Fahrenheit 2017-01-22 Heart Rate 72 bpm 2017-01-22 Respiratory Rate 16 2017-01-22 BMI 20.33 kg/m2 2017-01-22 Blood pressure systolic 108 mmHg 2017-01-22 Blood pressure diastolic 70 mmHg 2017-01-22 MEDICATIONS Medication Instructions Dosage Frequency Start Date End Date Duration S tatus Venlafaxine HCl 37.5 MG Orally twice a day 1 tablet with food 12h Jan, Active Macrobid 100 mg Orally every 12 hrs 1 capsule with food 12h Jan, Jan, 7 day(s) Active Dicyclomine HCl 20 mg Orally Four times a day 1 tabletac and hs 6h Jan, Active HydrOXYzine HCl 25 MG Orally at bedtime as needed 1-2 tablets as needed Active RESULTS Name Result Date Reference Range UA LONG DIP (IN HOUSE) 2017-01-22 Lot # [id number] Exp date 07/03 Clarity cloudy Color dark yellow Odor no GLU neg NE 1+ KET trace SG >=1.030 BLO 2+ pH 5.5 Protein 1+ URO 1.0 NIT neg OMAR neg Lot # Exp CULTURE, URINE 2017-01-22 Urine Culture, Routine Final report Result 1 Lactobacillus species Result 2 GC/CHLAM URINE (STATE) 2017-01-28 CHLAMYDIA GC PROCEDURES Procedure Date Ordered Result Body Site URINALYSIS, AUTO, W/O SCOPE January 22, 2017 No Charge January 22, 2017 URINE CULTURE/COLONY COUNT January 22, 2017 INSTRUCTIONS MEDICATIONS ADMINISTERED No Known Medications MEDICAL (GENERAL) HISTORY Type Description Date Medical History depression Medical History right ovarian cyst Surgical History colonoscopy and EGD, normal results 2014 Surgical History at [facility] left ovarian cyst drained 11/2016 Hospitalization History pneumonia Hospitalization History Was in hospital in [place] about 3 months ago for vomiting-dehydration
--- OUTSIDE RECORDS SUMMARY | 2020-01-05 14:58 | XMS REPORT ---
Author Author Dash LEAL Organization [employer] Address Unknown Phone Unavailable Care Team Providers Care It Integration Architect Name Role Phone MANDI LEAL CP Unavailable Allergies, Adverse Reactions, Alerts Substance Reaction Event Type Latex hives Drug Allergy Macrobid vomiting/diarrhea Drug Allergy Problems Problem Type Condition Code Onset Dates Condition Statu s Problem Candidiasis of vulva and vagina 112.1 Active Problem Excessive or frequent menstruation 626.2 Active Problem General counseling for prescription of oral contracept dee V25.01 Active Problem Acute pharyngitis 462 Active Problem Acute serous otitis media 381.01 Ac tive Problem examination or test, positive result V72.42 Active Problem CAP (community acquired pneumonia) J18.9 Active Problem Other general medical examination for administrative p urposes V70.3 Active Problem Unspecified pruritic disorder 698.9 Active Problem Dysuria 788.1 Active Problem Rash and other nonspecific skin eruption 782.1 Active Medications No Known Medications Results No Known Results Summary Purpose [employer] Submission
--- OUTSIDE RECORDS SUMMARY | 2020-01-05 14:58 | XMS REPORT ---
Author Author Dash PONCE Organization [employer] Address Unknown Phone Unavailable Care Team Providers Care Sprayer Insecticide Name Role Phone KRISTEN PONCE CP Unavailable Allergies No Known Allergies Problems Problem Type Condition ICD-9 Code Onset Dates Condition Statu s Problem Acute pharyngitis 462 Active Problem General counseling for prescription of oral contracept dee V25.01 Active Problem Candidiasis of vulva and vagina 112.1 Active Assessment Encounter for PPD test V74.1 Activ e Problem examination or test, positive result V72.42 Active Problem Dysuria 788.1 Active Problem Acute serous otitis media 381.01 Ac tive Problem Unspecified pruritic disorder 698.9 Active Problem Excessive or frequent menstruation 626.2 Active Problem Rash and other nonspecific skin eruption 782.1 Active Problem Other general medical examination for administrative p urposes V70.3 Active Medications No Known Medications Procedures Procedure Coding System Code Date TB INTRADERMAL TEST CPT-4 97480 Apr 24 5 Results No Known Results Summary Purpose [employer] Submission
--- OUTSIDE RECORDS SUMMARY | 2020-01-05 14:58 | XMS REPORT ---
Author Author Dash LEAL Organization [employer] Address Unknown Phone Unavailable Care Team Providers Care Acute Care Surgeon Name Role Phone MANDI LEAL CP Unavailable Allergies No Known Allergies Problems Problem Type Condition Code Onset Dates Condition Statu s Problem Candidiasis of vulva and vagina 112.1 Active Problem Excessive or frequent menstruation 626.2 Active Problem General counseling for prescription of oral contracept dee V25.01 Active Assessment test negative Z32.02 Acti ve Problem Acute pharyngitis 462 Active Problem Acute serous otitis media 381.01 Ac tive Problem examination or test, positive result V72.42 Active Problem CAP (community acquired pneumonia) J18.9 Active Problem Other general medical examination for administrative p urposes V70.3 Active Problem Unspecified pruritic disorder 698.9 Active Problem Dysuria 788.1 Active Problem Rash and other nonspecific skin eruption 782.1 Active Medications No Known Medications Procedures Procedure Coding System Code Date URINE TEST CPT-4 85499 Apr 14 6 Results No Known Results Summary Purpose [employer] Submission
--- OUTSIDE RECORDS SUMMARY | 2020-01-05 14:58 | XMS REPORT ---
Author Author Dash CHAVEZ HAMILTON Organization [facility] Address [address] [place] [address] Care Team Providers Care Manufacturing Sales Representative Name Role Phone HAMILTON CHAVEZ Unavailable PROBLEMS Type Condition ICD9-CM Code [id number] Code Onset Dates Condition S tatus SNOMED Code Problem Stomach pain R10.9 Active 4869312 02 Problem Obsessive-compulsive behavior R46.81 Active 41200344 Problem Anxiety F41.9 Active 64126858 Problem Excessive or frequent menstruation 626.2 Active 962286637 Problem CAP (community acquired pneumonia) J18.9 Active 670634624 Problem Bilious vomiting with nausea R11.14 A ctive 47412013 Problem Anxiety disorder, unspecified F41.9 Active 188127542 Problem Reactive depression F32.9 Active 96644841 Problem Constipation by delayed colonic transit K59.01 Active 41162937 Problem Functional diarrhea K59.1 Active 50341659 Problem Non-intractable vomiting with nausea, unspecified vomi ting type R11.2 Active 59041298 Problem Dysthymia F34.1 Active 90843401 ALLERGIES Substance Reaction Event Type Date Status Latex hives Drug Allergy Feb, Active Macrobid vomiting/diarrhea Drug Allergy Feb, Active Benadryl anaphylaxis Drug Allergy Feb, Active ENCOUNTERS Encounter Location Date Diagnosis [facility] [address] [facility] [id number] [place] [id number] Sep, Influenza J11.1 [facility] [address] [facility] [id number] [place] [id number] Feb, [facility] [address] [facility] [id number] [place] [id number] Feb, STD exposure Z20.2 ; Vaginal discharge N 89.8 ; GBS bacteriuria R82.71 ; Non- intractable vomiting with nausea, unspecified vomiting type R11.2 ; Anxiety disorder, unspecified F41.9 ; Reactive depression F32.9 ; Functional diarrhea K59.1 and Acute vaginitis N76.0 [facility] [address] [facility] [id number] [place] [id number] Jan, STD exposure Z20.2 and Dysthymia F34.1 [facility] [id number] [place] [id number] Nov, Recent major surgery Z98.890 ; Pain R52 ; Constipation by delayed colonic transit K59.01 ; Anxiety F41.9 and Obsessive-compulsive behavior R46.81 [facility] [id number] [place] [id number] Nov, [facility] [address] [id number] [place] [id number] Oct, Diarrhea, unspecified type R19.7 ; High risk sexual behavior Z72.51 ; Encounter for IUD removal Z30.432 ; STD exposure Z20.2 and Trichomoniasis A59.9 [facility] [id number] [place] [id number] Oct, Dysuria R30.0 [facility] [address] [id number] [place] [id number] Oct, Dysuria R30.0 and Fever, unspecified R50 .9 [facility] [id number] [place] [id number] Sep, Stomach pain R10.9 ; Bilious vomiting wi th nausea R11.14 ; Functional diarrhea K59.1 ; Anxiety F41.9 ; Obsessive-compulsive behavior R46.81 and Poor fluid intake R63.8 [facility] [address] [facility] [id number] [place] [id number] Aug, [facility] [address] [facility] [id number] [place] [id number] Aug, Stomach pain R10.9 ; Bilious vomiting wi th nausea R11.14 ; Functional diarrhea K59.1 ; Anxiety F41.9 ; Obsessive-compulsive behavior R46.81 and Poor fluid intake R63.8 [facility] [address] [id number] [place] [id number] Jul, Vaginal discharge N89.8 and High risk se xual behavior Z72.51 [facility] [address] [facility] [id number] [place] [id number] Mar, [facility] [address] [facility] [id number] [place] [id number] Mar, test negative Z32.02 [facility] [address] [facility] [id number] [id number] Mar, Urinary tract infection, site not specif ied N39.0 [facility] [address], [place] [id number] December, Seasonal allergic reaction J30.2 and Cou gh R05 [facility] [address] [id number] [place] [id number] May, Bronchitis J40 ; Mild intermittent asthm a with acute exacerbation J45.21 and Reflux gastritis K29.60 [facility] [id number] [place] [address], [place] [id number] May, [facility] [id number] [place] [address], [place] [id number] May, CAP (community acquired pneumonia) J18.9 [facility] [address] [id number] [place] [id number] Apr, Encounter for PPD test V74.1 [facility] [id number] [place] [address], [place] [id number] Apr, Encounter for PPD test V74.1 [facility] [address] [facility] [id number] [place] [id number] Feb, Dysuria 788.1 and Bronchitis 490 [facility] [address] [id number] [address] [place] [phone] Nov, [facility] [address] [facility] [id number] [address] [place] [phone] Nov, [facility] [id number] [place] [address], [place] [id number] Sep, [facility] [address] [id number] [address] [place] [address], [place] [address] Sep, [facility] [address] [id number] [address] [place] [address], [place] [address] Jun, [facility] [place] [address] [id number] [place] [id number] Jun, [facility] [address] [id number] [address] [place] [address], [place] [address] Apr, [facility] [place] [address] [id number] [place] [id number] Apr, [facility] [address] [id number] [address] [place] [address], [place] [address] Apr, [facility] [place] [address] [id number] [place] [id number] Mar, [facility] [address] [id number] [address] [place] [address], [place] [address] Mar, [facility] [place] [address] [id number] [place] [id number] Feb, [facility] [address] [id number] [address] [place] [address], [place] [address] Feb, [facility] [address] [id number] [address] [place] [address], [place] [address] December, [facility] [address] [id number] [address] [place] [address], [place] [address] Nov, [facility] [place] [address] [id number] [place] [id number] Nov, [facility] [address] [id number] [address] [place] [address], [place] [address] Nov, [facility] [place] [address] [id number] [place] [id number] Sep, [facility] [address] [id number] [address] [place] [address], [place] [address] Sep, [facility] [address] [id number] [address] [place] [phone] Sep, [facility] [address] [facility] [id number] [address] [place] [address] Sep, [facility] [address] [id number] [place] [id number] Sep, [facility] [address] [facility] [id number] [address] [place] [address] Sep, [facility] [address] [facility] [id number] [address] [place] [phone] May, [facility] [address] [facility] [id number] [place] [id number] May, [facility] [address] [facility] [id number] [address] [place] [address] May, [facility] [address] [facility] [id number] [place] [id number] Apr, [facility] [address] [facility] [id number] [address] [place] [phone] Feb, [facility] [address] [id number] [place] [id number] Feb, [facility] [address] [facility] [id number] [place] [id number] Jul, [facility] [address] [facility] [id number] [address] [place] [phone] Jul, [facility] [address] [id number] [place] [id number] Jul, [facility] [address] [facility] [id number] [address] [place] [phone] Jul, [facility] [address] [id number] [place] [id number] Mar, [facility] [address] [id number] [place] [id number] Jan, IMMUNIZATIONS No Known Immunizations SOCIAL HISTORY Never Assessed REASON FOR VISIT STD check, having discharge that smells KJones RN PLAN OF CARE Activity Details Follow Up 1 Week Reason:Anxiety and de pression VITAL SIGNS Height 63 in 2017-02-16 Weight 118.0 lbs 2017-02-16 Temperature 97.6 degrees Fahrenheit 2017-02-16 Heart Rate 86 bpm 2017-02-16 Respiratory Rate 18 2017-02-16 BMI 20.90 kg/m2 2017-02-16 Blood pressure systolic 102 mmHg 2017-02-16 Blood pressure diastolic 58 mmHg 2017-02-16 MEDICATIONS Medication Instructions Dosage Frequency Start Date End Date Duration S tatus HydrOXYzine HCl 25 MG Orally at bedtime as needed 1-2 tablets as needed Active Venlafaxine HCl ER 75 MG Orally Once a day 1 capsule with food 24h Feb, 0 days Active Metronidazole 500 mg Orally Twice a day 1 tablet 12h Feb,Feb, 07 days Active RESULTS Name Result Date Reference Range TEST, URINE (IN HOUSE) 2017-02-16 RESULTS negative Lot # [id number] Control positive Exp date 05/04 TRICHOMONAS (IN HOUSE) 2017-02-16 TRICHOMONAS negative Control positive Lot # [id number] Exp date 01/01 BACTERIAL VAGINOSIS (IN HOUSE) 2017-02-16 RESULTS positive Control positive Lot # [id number] Exp date 10/06 PROCEDURES Procedure Date Ordered Result Body Site TRICHOMONAS ASSAY W/OPTIC February 16, 2017 HICKS VAG, DNA, DIR PROBE February 16, 2017 URINE TEST February 16, 2017 N.GONORRHOEAE, DNA, AMP PROB February 16, 2017 CHYLMD TRACH, DNA, AMP PROBE February 16, 2017 CULTURE, BACTERIA, OTHER February 16, 2017 INSTRUCTIONS MEDICATIONS ADMINISTERED No Known Medications MEDICAL (GENERAL) HISTORY Type Description Date Medical History depression Medical History right ovarian cyst Surgical History colonoscopy and EGD, normal results 2014 Surgical History at [facility] left ovarian cyst drained 11/2016 Hospitalization History pneumonia Hospitalization History Was in hospital in [place] about 3 months ago for vomiting-dehydration
--- OUTSIDE RECORDS SUMMARY | 2020-01-05 14:58 | XMS REPORT ---
Author Author Dash LEAL Organization [employer] Address Unknown Phone Unavailable Care Team Providers Care Track Grinder Operator Name Role Phone MANDI LEAL CP Unavailable Allergies, Adverse Reactions, Alerts Substance Reaction Event Type Latex hives Drug Allergy Problems Problem Type Condition Code Onset Dates Condition Statu s Problem Candidiasis of vulva and vagina 112.1 Active Problem Excessive or frequent menstruation 626.2 Active Problem General counseling for prescription of oral contracept dee V25.01 Active Assessment CAP (community acquired pneumonia) J18.9 Active Problem Acute pharyngitis 462 Active Problem Acute serous otitis media 381.01 Ac tive Problem examination or test, positive result V72.42 Active Problem CAP (community acquired pneumonia) J18.9 Active Problem Other general medical examination for administrative p urposes V70.3 Active Problem Unspecified pruritic disorder 698.9 Active Problem Dysuria 788.1 Active Problem Rash and other nonspecific skin eruption 782.1 Active Medications Medication Code System Code Instructions Start Date End Date Status Dosage Zithromax [facility] [address]-30 250 MG Orally Once a day May 30 5 Jun 04, 2015 2 tablets on the first day, then 1 tabl et daily for 4 days Mucinex [facility] [address]-17 600 MG Orally every 12 hrs May 30, 2015 1 tablet as needed Celexa [facility] [address]-17 40 MG Orally Once a day 0.5 tablet PredniSONE [facility] [address]-39 10 MG Orally Once a day May 30 5 Jun 04, 2015 2 tablet with food or milk ProAir HFA [facility] [address]-07 108 (90 Base) MCG/ACT Inhal ation every 4-6 hrs prn March 06, 2015 2 puffs as needed Procedures Procedure Coding System Code Date Office Visit, Est Pt., Level 3 CPT-[address] 2014 Vital Signs Date/Time: May 30, 2015 Temperature 98.6 F BMIPercentile 90.6 % Weight 153.4 lbs Height 63 in BMI 27.17 Index Blood Pressure Diastolic 68 mmHg Blood Pressure Systolic 108 mmHg Cardiac Monitoring Heart Rate 74 bpm Wt Percentile 87.34 % Ht Percentile 32.19 % Results No Known Results Summary Purpose [employer] Submission
--- OUTSIDE RECORDS SUMMARY | 2020-01-05 14:58 | XMS REPORT ---
Author Author Dash CHAVEZ HAMILTON Organization [facility] Address [address] [place] [address] Care Team Providers Care Medical Support Assistant Name Role Phone SUSHILA TSEKENYETTAHA Unavailable PROBLEMS Type Condition ICD9-CM Code [id number] Code Onset Dates Condition S tatus SNOMED Code Problem Stomach pain R10.9 Active 8043804 02 Problem Obsessive-compulsive behavior R46.81 Active 29437424 Problem Anxiety F41.9 Active 94438016 Problem Excessive or frequent menstruation 626.2 Active 227981175 Problem CAP (community acquired pneumonia) J18.9 Active 339965114 Problem Bilious vomiting with nausea R11.14 A ctive 52238115 Problem Anxiety disorder, unspecified F41.9 Active 915708657 Problem Reactive depression F32.9 Active 00123798 Problem Constipation by delayed colonic transit K59.01 Active 64939217 Problem Functional diarrhea K59.1 Active 28638567 Problem Non-intractable vomiting with nausea, unspecified vomi ting type R11.2 Active 26349190 Problem Dysthymia F34.1 Active 60279099 ALLERGIES Unknown Allergies SOCIAL HISTORY No smoking Hx information available PLAN OF CARE VITAL SIGNS MEDICATIONS Medication Instructions Dosage Frequency Start Date End Date Duration S tatus Carafate 1 GM Orally one hour before meals three times a day 1 tabl et Aug, Aug, 0 days Active RESULTS No Results PROCEDURES No Known procedures IMMUNIZATIONS No Known Immunizations
--- OUTSIDE RECORDS SUMMARY | 2020-01-05 14:58 | XMS REPORT ---
Author Author Dash CHAVEZ HAMILTON Organization [facility] Address [address] [place] [address] Care Team Providers Care Director Dental Services Name Role Phone SUSHILA TES HAMILTON Unavailable PROBLEMS Type Condition ICD9-CM Code GPE26-QE Code Onset Dates Condition S tatus SNOMED Code Problem Stomach pain R10.9 Active 8210231 02 Problem Obsessive-compulsive behavior R46.81 Active 32750641 Problem Anxiety F41.9 Active 29478703 Problem Excessive or frequent menstruation 626.2 Active 122641877 Problem CAP (community acquired pneumonia) J18.9 Active 856108923 Problem Bilious vomiting with nausea R11.14 A ctive 64864618 Problem Anxiety disorder, unspecified F41.9 Active 732391072 Problem Reactive depression F32.9 Active 52684748 Problem Constipation by delayed colonic transit K59.01 Active 00902099 Problem Functional diarrhea K59.1 Active 42633178 Problem Non-intractable vomiting with nausea, unspecified vomi ting type R11.2 Active 67091595 Problem Dysthymia F34.1 Active 91520232 ALLERGIES Substance Reaction Event Type Date Status Latex hives Drug Allergy Aug, Active Macrobid vomiting/diarrhea Drug Allergy Aug, Active Benadryl anaphylaxis Drug Allergy Aug, Active SOCIAL HISTORY No smoking Hx information available PLAN OF CARE Activity Details Follow Up 4 Weeks Reason:CHM Anxiety. N/V FU on a thursday that patrick is also here VITAL SIGNS Height 63 in 2016-08-19 Weight 139.6 lbs 2016-08-19 Temperature 97.8 degrees Fahrenheit 2016-08-19 Heart Rate 72 bpm 2016-08-19 Respiratory Rate 16 2016-08-19 BMI 24.73 kg/m2 2016-08-19 Blood pressure systolic 122 mmHg 2016-08-19 Blood pressure diastolic 64 mmHg 2016-08-19 MEDICATIONS Medication Instructions Dosage Frequency Start Date End Date Duration S tatus Ramon 8 MG Orally twice a day 1 tablet 12h Aug, 0 d ays Active Lexapro 10 mg Orally Once a day 1 tablet 24h Aug, 0 days Active HydrOXYzine HCl 25 MG Orally every 8 hrs as needed for anxie ty 1-2 tablets as needed Aug, 0 days Active RESULTS Name Result Date Reference Range H PYLORI (IN HOUSE) 2016-08-19 H. PYLORI neg Control + Lot # [id number] Exp date 04/02 THYROID ANALYZER 2016-08-19 TSH 0.882 0.450-4.500 CBC 2016-08-19 WBC 10.0 3.4-10.8 RBC 4.86 3.77-5.28 Hemoglobin 15.4 11.1-15.9 Hematocrit 44.1 34.0-46.6 MCV 91 79-97 MCH 31.7 26.6-33.0 MCHC 34.9 31.5-35.7 RDW 13.2 12.3-15.4 Platelets 306 150-379 Neutrophils 73 Lymphs 21 Monocytes 6 Eos 0 Basos 0 Neutrophils (Absolute) 7.2 1.4-7.0 Lymphs (Absolute) 2.1 0.7-3.1 Monocytes(Absolute) 0.6 0.1-0.9 Eos (Absolute) 0.0 0.0-0.4 Baso (Absolute) 0.0 0.0-0.2 Immature Granulocytes 0 Immature Grans (Abs) 0.0 0.0-0.1 CMP 2016-08-19 Glucose, Serum 96 65-99 BUN 7 6-20 Creatinine, Serum 0.62 0.57-1.00 eGFR If NonAfricn Am 132 >59 eGFR If Africn Am 152 >59 BUN/Creatinine Ratio 11 8-20 Sodium, Serum 142 134-144 Potassium, Serum 4.3 3.5-5.2 Chloride, Serum 102 96-106 Carbon Dioxide, Total 23 18-29 Calcium, Serum 9.5 8.7-10.2 Protein, Total, Serum 6.9 6.0-8.5 Albumin, Serum 4.6 3.5-5.5 Globulin, Total 2.3 1.5-4.5 A/G Ratio 2.0 1.1-2.5 Bilirubin, Total 0.3 0.0-1.2 Alkaline Phosphatase, S 81 43-101 AST (SGOT) 16 0-40 ALT (SGPT) 10 0-32 PROCEDURES Procedure Date Ordered Related Diagnosis Body Site IMMUNOASSAY,INFECTIOUS AGENT Aug 19, 2016 COMPLETE CBC W/AUTO DIFF WBC Aug 19, 2016 COMPREHEN METABOLIC PANEL Aug 19, 2016 ASSAY THYROID STIM HORMONE Aug 19, 2016 Office Visit, Est Pt., Level 4 Aug 19, 2016 VENIPUNCT, ROUTINE* Aug 19, 2016 IMMUNIZATIONS No Known Immunizations
--- OUTSIDE RECORDS SUMMARY | 2020-01-05 14:58 | XMS REPORT ---
Author Author Dash LEAL Organization [facility] Address [address] [place] [address] Care Team Providers Care Crane Engineer Name Role Phone ELVIS MANDI Unavailable PROBLEMS Type Condition ICD9-CM Code [id number] Code Onset Dates Condition S tatus SNOMED Code Problem General counseling for prescription of oral contraceptives V25.01 Active 438679009 Problem Unspecified pruritic disorder 698.9 Active 390098559 Problem Excessive or frequent menstruation 626.2 Active 843384135 Assessment Urinary tract infection, site not specified N39 .0 Mar, Active 72448897 Problem Acute pharyngitis 462 Active 36 5085348 Problem Candidiasis of vulva and vagina 112.1 Active 67150729 Problem CAP (community acquired pneumonia) J18.9 Active 374873804 Problem Acute serous otitis media 381.01 Acti ve 641852976 Problem Rash and other nonspecific skin eruption 782.1 Active 953814351 Problem Other general medical examination for administrative purpo ses V70.3 Active 99776865 Problem examination or test, positive result V72.42 Active 468523238 Problem Dysuria 788.1 Active 25422621 ALLERGIES Substance Reaction Event Type Date Status Latex hives Drug Allergy Mar, Active SOCIAL HISTORY No smoking Hx information available PLAN OF CARE VITAL SIGNS Height 63 in 2016-04-10 Weight 156.8 lbs 2016-04-10 Heart Rate 90 bpm 2016-04-10 Respiratory Rate 18 2016-04-10 BMI 27.77 kg/m2 2016-04-10 Blood pressure systolic 110 mmHg 2016-04-10 Blood pressure diastolic 70 mmHg 2016-04-10 MEDICATIONS Medication Instructions Dosage Frequency Start Date End Date Duration S tatus Sertraline HCl 100 MG Orally Once a day 1 tablet 24h Active Macrobid 100 MG Orally every 12 hrs 1 capsule with food 12h Mar, Apr, 10 days Active RESULTS Name Result Date Reference Range CULTURE, URINE 2016-04-10 Urine Culture, Routine Final report Result 1 No growth UA LONG DIP (IN HOUSE) 2016-04-10 Lot # Exp date Clarity cloudy Color yellow Odor yes GLU neg NE 1+ KET trace SG >=1.030 BLO 1+ pH 5.5 Protein trace URO 0.2 NIT neg OMAR neg Lot # Exp date PROCEDURES Procedure Date Ordered Related Diagnosis Body Site Office Visit, Est Pt., Level 3 Apr 10, 2016 URINE CULTURE/COLONY COUNT Apr 10, 2016 URINALYSIS, AUTO, W/O SCOPE Apr 10, 2016 IMMUNIZATIONS No Known Immunizations
--- OUTSIDE RECORDS SUMMARY | 2020-01-05 14:58 | XMS REPORT ---
Author Author Dash PONCE [facility] [employer] Address Unknown Phone Unavailable Care Team Providers Care Tool Room Lathe Operator Name Role Phone KRISTEN PONCE CP Unavailable Allergies, Adverse Reactions, Alerts Substance Reaction Event Type Latex hives Drug Allergy Problems Problem Type Condition Code Onset Dates Condition Statu s Problem Candidiasis of vulva and vagina 112.1 Active Problem Excessive or frequent menstruation 626.2 Active Problem General counseling for prescription of oral contracept dee V25.01 Active Problem Acute serous otitis media 381.01 Ac tive Problem examination or test, positive result V72.42 Active Problem CAP (community acquired pneumonia) J18.9 Active Problem Other general medical examination for administrative p urposes V70.3 Active Problem Unspecified pruritic disorder 698.9 Active Problem Dysuria 788.1 Active Problem Rash and other nonspecific skin eruption 782.1 Active Assessment Reflux gastritis K29.60 Active Assessment Mild intermittent asthma with acute exacerbation J45.2 1 Active Assessment Bronchitis J40 Active Problem Acute pharyngitis 462 Active Medications Medication Code System Code Instructions Start Date End Date Status Dosage Carafate [facility] [address]-42 1 GM Orally 3 times a day before meals Jun 04, 2015 Aug 03, 2015 1 tablet on an empty stomach ProAir HFA [facility] [address]-18 108 (90 Base) MCG/ACT Inhal ation every 4-6 hrs prn March 06, 2015 2 puffs as needed Celexa [facility] [address]-40 40 MG Orally Once a day 0.5 tablet Qvar [facility] [address]-67 80 MCG/ACT Inhalation Twice a day Jun 04, 2015 1 puff Omeprazole [facility] [address]-72 20 MG Orally Once a day Jun 04, 2015 1 capsule Procedures Procedure Coding System Code Date Office Visit, Est Pt., Level 3 CPT-[address] 2014 Vital Signs Date/Time: Jun 04, 2015 Cardiac Monitoring Heart Rate 80 bpm Temperature 98.9 F Weight 154 lbs Wt Percentile 87.55 % Blood Pressure Diastolic 70 mmHg Blood Pressure Systolic 120 mmHg Results No Known Results Summary Purpose [employer] Submission
--- OUTSIDE RECORDS SUMMARY | 2020-01-05 14:58 | XMS REPORT ---
Author Author Dash PONCE Organization [employer] Address Unknown Phone Unavailable Care Team Providers Care Cooler Deliverer Name Role Phone KRISTEN PONCE CP Unavailable [...] System Code Date TB INTRADERMAL TEST CPT-4 06069 Apr 17 5 Results No Known Results Summary Purpose [employer] Submission
--- OUTSIDE RECORDS SUMMARY | 2020-01-05 14:58 | XMS REPORT ---
Author Author Dash YOUNG Organization [facility] Address [address] [place] [address] Care Team Providers Care Import Coordinator Name Role Phone CONCEPCIÓN YOUNG Unavailable PROBLEMS Type Condition ICD9-CM Code [id number] Code Onset Dates Condition S tatus SNOMED Code Problem Functional diarrhea K59.1 Active 42900793 Problem Stomach pain R10.9 Active 6151539 02 Problem Bilious vomiting with nausea R11.14 A ctive 50815632 Problem Excessive or frequent menstruation 626.2 Active 714336216 Problem CAP (community acquired pneumonia) J18.9 Active 880701781 Problem Obsessive-compulsive behavior R46.81 Active 38822298 Problem Anxiety disorder, unspecified F41.9 Active 310924790 Problem Non-intractable vomiting with nausea, unspecified vomi ting type R11.2 Active 11184879 Problem Constipation by delayed colonic transit K59.01 Active 81750184 Problem Anxiety F41.9 Active 53692940 Problem Reactive depression F32.9 Active 76630356 Problem Dysthymia F34.1 Active 71103462 ALLERGIES Substance Reaction Event Type Date Status Latex hives Drug Allergy Jul, Active Macrobid vomiting/diarrhea Drug Allergy Jul, Active Benadryl anaphylaxis Drug Allergy Jul, Active SOCIAL HISTORY No smoking Hx information available PLAN OF CARE Activity Details Follow Up prn Reason: VITAL SIGNS Height 63 in 2016-08-07 Weight 144.6 lbs 2016-08-07 Temperature 98.0 degrees Fahrenheit 2016-08-07 Heart Rate 76 bpm 2016-08-07 Respiratory Rate 18 2016-08-07 BMI 25.61 kg/m2 2016-08-07 Blood pressure systolic 110 mmHg 2016-08-07 Blood pressure diastolic 68 mmHg 2016-08-07 MEDICATIONS Medication Instructions Dosage Frequency Start Date End Date Duration S tatus Nystatin-Triamcinolone 704704-0.1 UNIT/GM Externally Twice a day 1 application to affected area 12h Jul, Active Diflucan 150 MG Orally daily 1 tablet 24h Jul, Jul, 2 days Active RESULTS No Results PROCEDURES Procedure Date Ordered Related Diagnosis Body Site No Charge Aug 07, 2016 TRICHOMONAS ASSAY W/OPTIC Aug 07, 2016 CULTURE, BACTERIA, OTHER Aug 07, 2016 HICKS VAG, DNA, DIR PROBE Aug 07, 2016 Preventive Care Est Pt. Age 18-39 Aug 07, 2016 IMMUNIZATIONS No Known Immunizations
--- OUTSIDE RECORDS SUMMARY | 2020-01-05 14:58 | XMS REPORT ---
Author Author Dash CHAVEZ HAMILTON Organization [facility] Address [address] [place] [address] Care Team Providers Care Auto Damage Insurance Appraiser Name Role Phone SUSHILA TSEKENYETTAHA Unavailable [phone] PROBLEMS Type Condition ICD9-CM Code [id number] Code Onset Dates Condition S tatus SNOMED Code Problem Stomach pain R10.9 Active 3670436 02 Problem Obsessive-compulsive behavior R46.81 Active 47428520 Problem Anxiety F41.9 Active 36075639 Problem Excessive or frequent menstruation 626.2 Active 964928154 Problem CAP (community acquired pneumonia) J18.9 Active 062982957 Problem Bilious vomiting with nausea R11.14 A ctive 25473253 Problem Anxiety disorder, unspecified F41.9 Active 587980739 Problem Reactive depression F32.9 Active 62224439 Problem Constipation by delayed colonic transit K59.01 Active 17127885 Problem Functional diarrhea K59.1 Active 57138670 Problem Non-intractable vomiting with nausea, unspecified vomi ting type R11.2 Active 03745373 Problem Dysthymia F34.1 Active 37319462 ALLERGIES No Information SOCIAL HISTORY Never Assessed PLAN OF CARE VITAL SIGNS MEDICATIONS Medication Instructions Dosage Frequency Start Date End Date Duration S tatus Macrobid 100 mg Orally every 12 hrs 1 capsule with food 12h Oct, Oct, 7 day(s) Active RESULTS No Results PROCEDURES No Known procedures IMMUNIZATIONS No Known Immunizations MEDICAL (GENERAL) HISTORY Type Description Date Medical History depression Medical History right ovarian cyst Surgical History colonoscopy and EGD, normal results 2014 Surgical History at [facility] left ovarian cyst drained 11/2016 Hospitalization History pneumonia Hospitalization History Was in hospital in [place] about 3 months ago for vomiting-dehydration
--- OUTSIDE RECORDS SUMMARY | 2020-03-21 14:10 | XMS REPORT ---
Author Author Dash VALDEZ Organization [facility] Address [address] [place] [address] Care Team Providers Care Bait Painter Name Role Phone LIANNE VALDEZ Unavailable PROBLEMS Type Condition ICD9-CM Code [id number] Code Onset Dates Condition S tatus SNOMED Code Problem Functional diarrhea K59.1 Active 26525884 Problem Bilious vomiting with nausea R11.14 A ctive 41658385 Problem Dysthymia F34.1 Active 96775433 Problem Mild intermittent asthma, unspecified whether complicated J45.20 Active 013949784 Problem Obsessive-compulsive behavior R46.81 Active 08043321 Problem Uterine cramping N94.89 Active 289 144558 Problem Anxiety F41.9 Active 81770684 Problem Anxiety disorder, unspecified F41.9 Active 301722112 Problem Headache associated with hormonal factors G44.89 Active 87167931 Problem Constipation K59.00 Active 2528873 8 Problem Depressive disorder F32.9 Active 74831503 ALLERGIES No Information ENCOUNTERS Encounter Location Date Diagnosis [place] [address] [facility] [id number] [address] [place] [phone] Feb, [facility] [address] [facility] [id number] [address] [place] [id number] 24 Jan, 2020 Encounter for supervision of other normal in second trimester Z34.82 [facility] [address] [facility] [id number] [address] [place] [id number] 15 Jan, 2020 Encounter for supervision of other normal in second trimester Z34.[id number] [place] [id number] 11 Jan, 2020 Vaginosis N76.0 [facility] [address] [facility] [id number] [address] [place] [id number] December, [facility] [address] [id number] [place] [address] December, [facility] HERNANDEZ CONTRERAS [address] [id number] [place] [address] December, Encounter for supervision of other normal in first trimester Z34.81 ; Second trimester bleeding O46.92 and Uterine cramping N94.89 [facility] [address] [facility] [id number] [address] [place] [phone] Nov, Encounter for supervision of other normal in first trimester Z34.[address] [id number] [id number] Nov, [facility] [address] [facility] [id number] [address] [place] [phone] Nov, Encounter for supervision of other normal in first trimester Z34.81 [facility] [address] [facility] [id number] [address] [place] [phone] Oct, Encounter for supervision of other normal in first trimester Z34.81 and Depressive disorder F32.9 [facility]ALK [facility] [address] [facility] [id number] [address] [place] [phone] Jul, Mild intermittent asthma, un specified whether complicated J45.20 and Anxiety F41.9 [facility] [address] [id number] [place] [id number] Apr, Depressive disorder F32.9 [facility] [place] [address] [id number] [place] [id number] Mar, [facility] [place] [address] [id number] [place] [id number] Feb, Urinary tract infection, site not specif ied N39.0 ; Hematuria, unspecified R31.9 and Dysuria R30.0 [facility] [place] [address] [id number] [place] [id number] Jan, Depressive disorder F32.9 and Anxiety di sorder, unspecified F41.9 [facility] [address] [id number] [place] [id number] Nov, [place] [id number] [place] [address] S [id number] Aug, Constipation K59.00 and Vaginitis N76.0 [place] [id number] [place] [address], S [id number] Jul, Diarrhea, unspecified type R19.7 [place] [id number] [place] [address] S [id number] Apr, Positive test Z32.[address] S [id number] Mar, Concern about sexually transmitted disea se in female without diagnosis Z71.1 ; Vaginal lesion N89.8 and Vaginal candidiasis B37.3 [place] [id number] [place] [address], S [id number] Jan, Headache associated with hormonal factor s G44.89 and History of unprotected sex Z72.51 [place] [id number] [place] [address], S [id number] Oct, Acute left flank pain R10.9 ; Vaginal di scharge N89.8 ; Acute vaginitis N76.0 and Other specified bacterial agents as the cause of diseases classified elsewhere B96.89 [address] [place] [address], S [id number] Sep, Influenza J11.1 [address] [place] [address], S [id number] Feb, [place] [id number] [place] [address], [place] [id number] Feb, STD exposure Z20.2 ; Vaginal discharge N 89.8 ; GBS bacteriuria R82.71 ; Non- intractable vomiting with nausea, unspecified vomiting type R11.2 ; Anxiety disorder, unspecified F41.9 ; Reactive depression F32.9 ; Functional diarrhea K59.1 and Acute vaginitis N76.0 [address] [place] [address], S [id number] Jan, STD exposure Z20.2 and Dysthymia F34.1 [facility] [id number] [place] [id number] Nov, Recent major surgery Z98.890 ; Pain R52 ; Constipation by delayed colonic transit K59.01 ; Anxiety F41.9 and Obsessive-compulsive behavior R46.81 [facility] [id number] [place] [id number] Nov, [facility] [address], [place] [id number] Oct, Diarrhea, unspecified type R19.7 ; High risk sexual behavior Z72.51 ; Encounter for IUD removal Z30.432 ; STD exposure Z20.2 and Trichomoniasis A59.9 [facility] [address] [place] [id number] [place] [address], [place] [id number] Oct, Dysuria R30.0 [facility] [id number] [place] [id number] Oct, Dysuria R30.0 and Fever, unspecified R50 .9 [facility] [address] [place] [id number] [place] [address], [place] [id number] Sep, Stomach pain R10.9 ; Bilious vomiting wi th nausea R11.14 ; Functional diarrhea K59.1 ; Anxiety F41.9 ; Obsessive-compulsive behavior R46.81 and Poor fluid intake R63.8 [facility] [id number] [place] [id number] Aug, [facility] [address] [place] [id number] [place] [address], [place] [id number] Aug, Stomach pain R10.9 ; Bilious vomiting wi th nausea R11.14 ; Functional diarrhea K59.1 ; Anxiety F41.9 ; Obsessive-compulsive behavior R46.81 and Poor fluid intake R63.8 [facility] [id number] [place] [id number] Jul, Vaginal discharge N89.8 and High risk se xual behavior Z72.51 [facility] [id number] [place] [id number] Mar, [facility] [address] [place] [id number] [place] [address], [place] [id number] Mar, test negative Z32.02 [place] [address], [place] [id number] Mar, Urinary tract infection, site not specif ied N39.0 [facility] [address], [place] [id number] December, Seasonal allergic reaction J30.2 and Cou gh R05 [place] [address], [place] [id number] May, Bronchitis J40 ; Mild intermittent asthm a with acute exacerbation J45.21 and Reflux gastritis K29.[address], [place] [id number] May, [address], S [id number] May, CAP (community acquired pneumonia) J18.[address], S [id number] Apr, Encounter for PPD test V74.[address], S [id number] Apr, Encounter for PPD test V74.[address], S [id number] Feb, Dysuria 788.1 and Bronchitis 490 [facility] [address] [phone] Nov, [facility] [address] [place] [id number] [address] [place] [address] Nov, [place] [id number] [place] [address], S [id number] Sep, [facility] [address] [address] Sep, [facility] [address] [address] Jun, [address] [id number] [place] [id number] Jun, [facility] [address] [id number] [facility] [place] [address] Apr, [facility] [place] [address] [id number] [place] [id number] Apr, [facility] [address] [id number] [facility] [place] [address] Apr, [facility] [place] [address] [id number] [place] [id number] Mar, [facility] [address] [id number] [facility] [place] [address] Mar, [facility] [place] [address] [id number] [place] [id number] Feb, [facility] [address] [id number] [address] [place] [address], [place] [address] Feb, [facility] [address] [id number] [address] [place] [address], [place] [address] December, [facility] [address] [id number] [address] [place] [address], [place] [address] Nov, [facility] [place] [address] [id number] [place] [id number] Nov, [facility] [address] [id number] [address] [place] [address], [place] [address] Nov, [facility] [place] [address] [id number] [place] [id number] Sep, [facility] [address] [id number] [address] [place] [address], [place] [address] Sep, [facility] [address] [id number] [address] [place] [address], [place] [address] Sep, [facility] [address] [id number] [address] [place] [address], [place] [address] Sep, [facility] [place] [address] [id number] [place] [id number] Sep, [facility] [address] [facility] [id number] [address] [place] [phone] Sep, [facility] [address] [facility] [id number] [address] [place] [id number] May, [facility] [place] [address] [id number] [place] [id number] May, [facility] [address] [facility] [id number] [address] [place] [address] May, [facility] [address] [id number] [place] [id number] Apr, [facility] [address] [facility] [id number] [address] [place] [id number] Feb, [facility] [address] [id number] [place] [id number] Feb, [facility] [address] [id number] [place] [id number] Jul, [facility] [address] [facility] [id number] [address] [place] [address] Jul, [facility] [address] [id number] [place] [id number] Jul, [facility] [address] [facility] [id number] [address] [place] [phone] Jul, [facility] [address] [id number] [place] [id number] Mar, [facility] [address] [id number] [place] [id number] Jan, IMMUNIZATIONS No Known Immunizations SOCIAL HISTORY Never Assessed REASON FOR VISIT PLAN OF CARE VITAL SIGNS Height 63 in 2013-03-14 Weight 112.12 lbs 2013-03-14 Temperature 99.6 degrees Fahrenheit 2013-03-14 Heart Rate 78 bpm 2013-03-14 Respiratory Rate 16 2013-03-14 Blood pressure systolic 120 mmHg 2013-03-14 Blood pressure diastolic 70 mmHg 2013-03-14 MEDICATIONS Unknown Medications RESULTS No Results PROCEDURES Procedure Date Ordered Result Body Site URINE CULTURE/COLONY COUNT March 14, 2013 URINALYSIS, AUTO, W/O SCOPE March 14, 2013 INSTRUCTIONS MEDICATIONS ADMINISTERED No Known Medications MEDICAL (GENERAL) HISTORY Type Description Date Medical History depression Medical History right ovarian cyst Surgical History colonoscopy and EGD, normal results 2014 Surgical History at [facility] left ovarian cyst drained 11/2016 Hospitalization History pneumonia Hospitalization History Was in hospital in [place] about 3 months ago for vomiting-dehydration Hospitalization History Child
--- OUTSIDE RECORDS SUMMARY | 2020-03-21 14:10 | XMS REPORT ---
Author Author Dash Enrique Organization [facility] Address [address] [place] [address] Care Team Providers Care Custodian Name Role Phone KRISTEN Enrique Unavailable PROBLEMS Type Condition ICD9-CM Code WRM00-SX Code Onset Dates Condition S tatus SNOMED Code Problem Functional diarrhea K59.1 Active 30009747 Problem Bilious vomiting with nausea R11.14 A ctive 74619114 Problem Dysthymia F34.1 Active 03072640 Problem Mild intermittent asthma, unspecified whether complicated J45.20 Active 252404166 Problem Obsessive-compulsive behavior R46.81 Active 82208155 Problem Uterine cramping N94.89 Active 289 830571 Problem Anxiety F41.9 Active 67862107 Problem Anxiety disorder, unspecified F41.9 Active 531828731 Problem Headache associated with hormonal factors G44.89 Active 51895449 Problem Constipation K59.00 Active 3364132 8 Problem Depressive disorder F32.9 Active 97551883 ALLERGIES No Information ENCOUNTERS Encounter Location Date Diagnosis [address] [facility] [id number] [address] 09 Feb, 2020 Sore throat J02.9 [place] [address] [facility] [id number] [address] [place] [id number] 24 Jan, 2020 Encounter for supervision of other normal in second trimester Z34.82 [place] [address] [facility] [id number] [address] [place] [phone] 15 Jan, 2020 Encounter for supervision of other normal in second trimester Z34.[address] [facility] [id number], [place] [address] 11 Jan, 2020 Vaginosis N76.0 [place] [address] [facility] [id number] [address] [place] [address] December, [facility]ER[facility] [address] [id number] [place] [address] December, [facility] [address] [id number] [place] [address] December, Encounter for supervision of other normal in first trimester Z34.81 ; Second trimester bleeding O46.92 and Uterine cramping N94.89 [facility] [address] [facility] [id number] [address] [place] [address] Nov, Encounter for supervision of other normal in first trimester Z34.[address] [id number] [id number] Nov, [facility] [address] [facility] [id number] [address] [place] [address] Nov, Encounter for supervision of other normal in first trimester Z34.81 [facility] [address] [facility] [id number] [address] [place] [address] Oct, Encounter for supervision of other normal in first trimester Z34.81 and Depressive disorder F32.9 [facility] [address] [facility] [id number] [address] [place] [address] Jul, Mild intermittent asthma, un specified whether complicated J45.20 and Anxiety F41.9 [facility] [address] [id number] [place] [id number] Apr, Depressive disorder F32.9 [facility] [address] [id number] [place] [id number] Mar, [facility] [address] [id number] [place] [id number] Feb, Urinary tract infection, site not specif ied N39.0 ; Hematuria, unspecified R31.9 and Dysuria R30.0 [facility] [address] [id number] [place] [id number] Jan, Depressive disorder F32.9 and Anxiety di sorder, unspecified F41.9 [facility] [address] [id number] [place] [id number] Nov, [place] [id number] [place] [address], [place] [id number] Aug, Constipation K59.00 and Vaginitis N76.0 [place] [address] [place] [id number] [place] [address], [place] [id number] Jul, Diarrhea, unspecified type R19.[address], [place] [id number] Apr, Positive test Z32.01 [place] [id number] [place] [address], [place] [id number] Mar, Concern about sexually transmitted disea se in female without diagnosis Z71.1 ; Vaginal lesion N89.8 and Vaginal candidiasis B37.3 [place] [id number] [place] [address], [place] [id number] Jan, Headache associated with hormonal factor s G44.89 and History of unprotected sex Z72.51 [place] [id number] [place] [address], [place] [id number] Oct, Acute left flank pain R10.9 ; Vaginal di scharge N89.8 ; Acute vaginitis N76.0 and Other specified bacterial agents as the cause of diseases classified elsewhere B96.89 [address] [place] [address], [place] [id number] Sep, Influenza J11.1 [place] [id number] [place] [address], [place] [id number] Feb, [place] [id number] [place] [address], [place] [id number] Feb, STD exposure Z20.2 ; Vaginal discharge N 89.8 ; GBS bacteriuria R82.71 ; Non- intractable vomiting with nausea, unspecified vomiting type R11.2 ; Anxiety disorder, unspecified F41.9 ; Reactive depression F32.9 ; Functional diarrhea K59.1 and Acute vaginitis N76.[address] [place] [address], [place] [id number] Jan, STD exposure Z20.2 and Dysthymia F34.1 [facility] [id number] [place] [id number] Nov, Recent major surgery Z98.890 ; Pain R52 ; Constipation by delayed colonic transit K59.01 ; Anxiety F41.9 and Obsessive-compulsive behavior R46.81 [facility] [id number] [place] [id number] Nov, [facility] [address] [place] [id number] [place] [address], [place] [id number] Oct, Diarrhea, unspecified type R19.7 ; High risk sexual behavior Z72.51 ; Encounter for IUD removal Z30.432 ; STD exposure Z20.2 and Trichomoniasis A59.9 [facility] [id number] [place] [id number] Oct, Dysuria R30.0 [place] [address] [place] [id number] [place] [address], [place] [id number] Oct, Dysuria R30.0 and Fever, unspecified R50 .9 [facility] [address] [place] [id number] [place] [address], [place] [id number] Sep, Stomach pain R10.9 ; Bilious vomiting wi th nausea R11.14 ; Functional diarrhea K59.1 ; Anxiety F41.9 ; Obsessive-compulsive behavior R46.81 and Poor fluid intake R63.8 [facility] [id number] [place] [id number] Aug, [facility] [address] [place] [id number] [place] [address], [place] [id number] Aug, Stomach pain R10.9 ; Bilious vomiting wi th nausea R11.14 ; Functional diarrhea K59.1 ; Anxiety F41.9 ; Obsessive-compulsive behavior R46.81 and Poor fluid intake R63.8 [facility] [id number] [place] [id number] Jul, Vaginal discharge N89.8 and High risk se xual behavior Z72.51 [facility] [id number] [place] [id number] Mar, [facility] [id number] [place] [id number] Mar, test negative Z32.02 [place] [id number] [place] [address], [place] [id number] Mar, Urinary tract infection, site not specif ied N39.[address], [place] [id number] December, Seasonal allergic reaction J30.2 and Cou gh R05 [address], [place] [id number] May, Bronchitis J40 ; Mild intermittent asthm a with acute exacerbation J45.21 and Reflux gastritis K29.[address], [place] [id number] May, [address], [place] [id number] May, CAP (community acquired pneumonia) J18.[address], [place] [id number] Apr, Encounter for PPD test V74.[address], [place] [id number] Apr, Encounter for PPD test V74.1 [place] [id number] [place] [address], [place] [id number] Feb, Dysuria 788.1 and Bronchitis 490 [facility] [address] [place] [id number] [address] [place] [address] Nov, [facility] [address] [place] [id number] [address] [place] [address] Nov, [address], [place] [id number] Sep, [facility] [address] [place] [id number] [address] [place] [address] Sep, [facility] [address] [address] Jun, [facility] [place] [address] [id number] [place] [id number] Jun, [facility] [address] [id number] [facility] [address] Apr, [facility] [place] [address] [id number] [place] [id number] Apr, [facility] [address] [id number] [facility] [address] Apr, [facility] [place] [address] [id number] [place] [id number] Mar, [facility] [address] [id number] [facility] [address] Mar, [facility] [place] [address] [id number] [place] [id number] Feb, [facility] [address] [id number] [address] [place] [address], [place] [address] Feb, [facility] [address] [id number] [address] [place] [address], [place] [address] December, [facility] [address] [id number] [address] [place] [address], [place] [address] Nov, [facility] [place] [address] [id number] [place] [id number] Nov, [facility] [address] [id number] [facility] [address] Nov, [facility] [place] [address] [id number] [place] [id number] Sep, [facility] [address] [id number] [address] [place] [address], [place] [address] Sep, [facility] [address] [id number] [facility] [address] Sep, [facility] [address] [id number] [facility] [address] Sep, [facility] [place] [address] [id number] [place] [id number] Sep, [facility] [address] [facility] [id number] [address] [place] [address] Sep, [facility] [address] [facility] [id number] [address] [place] [address] May, [facility] [address] [id number] [place] [id number] May, [facility] [address] [id number] [address] [place] [address] May, [facility] [address] [id number] [place] [id number] Apr, [facility] [address] [facility] [id number] [address] [place] [address] Feb, [facility] [address] [id number] [place] [id number] Feb, [facility] [address] [id number] [place] [id number] Jul, [facility] [address] [facility] [id number] [address] [place] [address] Jul, [facility] [address] [id number] [place] [id number] Jul, [facility] [address] [facility] [id number] [address] [place] [address] Jul, [facility] [address] [id number] [place] [id number] Mar, [facility] [address] [id number] [place] [id number] Jan, IMMUNIZATIONS No Known Immunizations SOCIAL HISTORY Never Assessed REASON FOR VISIT PLAN OF CARE VITAL SIGNS Height 63 in 2013-06-10 Weight 112.8 lbs 2013-06-10 Temperature 98.3 degrees Fahrenheit 2013-06-10 Heart Rate 64 bpm 2013-06-10 Respiratory Rate 12 2013-06-10 Blood pressure systolic 102 mmHg 2013-06-10 Blood pressure diastolic 68 mmHg 2013-06-10 MEDICATIONS Unknown Medications RESULTS No Results PROCEDURES Procedure Date Ordered Result Body Site CHYLMD TRACH, DNA, AMP PROBE Jun 10, 2013 URINALYSIS, AUTO, W/O SCOPE Jun 10, 2013 INSTRUCTIONS MEDICATIONS ADMINISTERED No Known Medications MEDICAL (GENERAL) HISTORY Type Description Date Medical History depression Medical History right ovarian cyst Surgical History colonoscopy and EGD, normal results 2014 Surgical History at [facility] left ovarian cyst drained 11/2016 Hospitalization History pneumonia Hospitalization History Was in hospital in [place] about 3 months ago for vomiting-dehydration Hospitalization History Child
--- OUTSIDE RECORDS SUMMARY | 2020-03-21 14:12 | XMS REPORT | Continuity of Care Document ---
Author Organization Unknown Address Unknown Phone Unavailable Allergies There is no data. Medications There is no data. Problems Date Dx Coded Attending Type Code Diagnosis Diagnosed By 03/23/2008 JAILYN PETERS MD 599. 0 URINARY TRACT INFECTION 03/23/2008 JAILYN PETERS MD 789. 00 COLIC INFANTILE 03/23/2008 [...] PETERS MD 724. 5 BACKACHE UNSPECIFIED 04/08/2010 JAILYN PETERS MD 788. 63 URINARY URGENCY 04/08/2010 [...] Code Description [place] [address] UA L YOGI DIP 05/13/2013 68620 UA L YOGI DIP 06/10/2013 80062 GC/C HLAM URINE (STATE) 06/10/2013 89830 PREG CONCEPCIÓN TEST, URINE (IN- HOUSE) 09/29/2013 84156 UA L YOGI DIP 09/29/2013 25452 UA L YOGI DIP 12/13/2013 40895 CULT URE URINE 12/13/2013 GC/CHLAM G C/CHLAMYDIA PROBE/URINE 12/13/2013 63319 UA L YOGI DIP 02/21/2014 68168 STRE P A (IN-HOUSE) 04/12/2014 Results Test [...] NRG STATEMENT OF ADEQUACY: NRG INTERPRETATION/RESULT: NRG COMMUNICATIONS SCIENTIST: NRG GENERAL CATEGORIZATION: NRG COMMENT: NRG PATHOLOGIST: NRG COMMENT NRG Encounters ACCT No. Visit Date/Time Discharge Status Pt. Type Provider Facility Loc./Unit Complaint [id number] 09/18/2014 15:52:00 09/18/2014 23:59: 59 CLS Outpatient TASIA NOEL DO [id number] 04/12/2014 09:39:00 04/12/2014 23:59: 59 CLS Outpatient TASIA NOEL DO [id number] 02/21/2014 14:21:00 02/21/2014 23:59: 59 CLS Outpatient TASIA NOEL DO [id number] 12/13/2013 15:11:00 12/13/2013 23:59: 59 CLS Outpatient TASIA NOEL DO [id number] 09/29/2013 15:44:00 09/29/2013 23:59: 59 CLS Outpatient [facility] ENDOCRINOLOGISTKRISTEN Stanislaw [id number] 06/10/2013 16:09:00 06/10/2013 23:59: 59 CLS Outpatient TASIA NOEL DO [id number] 05/13/2013 14:48:00 05/13/2013 23:59: 59 CLS Outpatient TASIA NOEL DO [id number] 07/28/2012 15:44:00 07/28/2012 23:59: 59 [place] [id number] 02/23/2020 11:40:00 02/23/2020 23:59:5 9 CLS Outpatient [facility]S [facility] [address] [id number] 11/07/2019 15:00:00 Document Registration [id number] 03/04/2019 11:00:00 Document Registration [id number] 04/07/2018 09:40:00 Document Registration [id number] 11/12/2017 08:40:00 Document Registration [id number] 01/05/2020 13:15:00 13:20:00 DIS Emergency STEFANY DEAN DO [facility] ER FS VAGINAL BLEEDING; CRAMP ING
== END 2020-01-05 13:20 | disposition left against medical advice (07) ==
LOC: ER FS 13:15
DX: N93.9 Abnormal uterine and vaginal bleeding, unspecified (principal); R25.2 Cramp and spasm

== ENCOUNTER 2022-06-27 22:57 | Emergency (ER) | payer BC, MEDICAID ==
[2022-06-28 00:03] LABS: BASOPHILS # (AUTO) 0.1 10^3/uL (0.0-0.1); BASOPHILS % (AUTO) 1 % (0-10); EOSINOPHILS # (AUTO) 0.4 10^3/uL (0.0-0.3); EOSINOPHILS % (AUTO) 3 % (0-10); HEMATOCRIT 36 % (35-52); HEMOGLOBIN 11.6 g/dL (11.5-16.0); LYMPHOCYTES % (AUTO) 39 % (12-44); MEAN CORPUSCULAR HEMOGLOBIN 25 pg (25-34); MEAN CORPUSCULAR HGB CONC 32 g/dL (32-36); MEAN CORPUSCULAR VOLUME 77 fL (80-99); MEAN PLATELET VOLUME 10.5 fL (9.0-12.2); MONOCYTES # (AUTO) 0.8 10^3/uL (0.0-1.0); MONOCYTES % (AUTO) 8 % (0-12); NEUTROPHILS % (AUTO) 49 % (42-75); PLATELET COUNT 318 10^3/uL (130-400); WHITE BLOOD COUNT 10.2 10^3/uL (4.3-11.0)
[2022-06-28 00:20] LABS: ALBUMIN 4.6 GM/DL (3.2-4.5)
[2022-06-28 00:21] LABS: CHLORIDE 102 MMOL/L (98-107); POTASSIUM 3.2 MMOL/L (3.6-5.0); PROTHROMBIN TIME PATIENT 13.6 SEC (12.2-14.7); SODIUM 137 MMOL/L (135-145)
[2022-06-28 00:22] LABS: CALCIUM 9.8 MG/DL (8.5-10.1)
[2022-06-28 00:23] LABS: GLUCOSE 92 MG/DL (70-105); TOTAL PROTEIN 8.1 GM/DL (6.4-8.2)
[2022-06-28 00:24] LABS: CARBON DIOXIDE 22 MMOL/L (21-32)
[2022-06-28 00:25] LABS: BILIRUBIN,TOTAL 0.9 MG/DL (0.1-1.0)
[2022-06-28 00:26] LABS: ALKALINE PHOSPHATASE 88 U/L (40-136)
[2022-06-28 00:27] LABS: CREATININE SERUM 0.75 MG/DL (0.60-1.30); GFR ESTIMATED 114
[2022-06-28 00:28] LABS: BUN/CREATININE RATIO 19
[2022-06-28 00:29] LABS: ALANINE AMINOTRANSFERASE 15 U/L (0-55)
[2022-06-28 00:31] LABS: CLARITY,URINE TURBID; COLOR,URINE RED; PROTEIN,URINE 3+ (NEGATIVE)
[2022-06-28 00:32] LABS: GLUCOSE, URINE (UA) NEGATIVE (NEGATIVE); KETONES,URINE 3+ (NEGATIVE); NITRITE,URINE POSITIVE (NEGATIVE)
[2022-06-28] MEDS ORDERED: cefTRIAXone 1 GM PRE-MIX 50 ML IV STA (00:32)
[2022-06-28] MEDS ORDERED: AZITHROMYCIN 250 MG TAB (ZITHROMAX) PO STA (00:32)
[2022-06-28 00:33] LABS: BACTERIA,URINE MODERATE /HPF; BILIRUBIN,URINE 1+ (NEGATIVE); LEUKOCYTE ESTERASE ,URINE 2+ (NEGATIVE); RBC,URINE TNTC /HPF
[2022-06-28 00:43] LABS: AMPHETAMINE SCREEN, URINE POSITIVE (NEGATIVE); BENZODIAZEPINES SCREEN URINE NEGATIVE (NEGATIVE); CANNABINOID SCREEN, URINE POSITIVE (NEGATIVE); COCAINE SCREEN URINE NEGATIVE (NEGATIVE)
[2022-06-28 00:44] LABS: BARBITURATE SCREEN URINE NEGATIVE (NEGATIVE); METHADONE STAT NEGATIVE (NEGATIVE); OPIATE SCREEN URINE NEGATIVE (NEGATIVE); OXYCODONE STAT NEGATIVE (NEGATIVE); PROPOXYPHENE STAT NEGATIVE (NEGATIVE); TRICYCLIC ANTIDEPRESSANTS SCRE NEGATIVE (NEGATIVE)
[2022-06-28] MEDS ORDERED: DOXY100T2 PO (00:50)
[2022-06-28] MEDS ORDERED: METR-145 PO (00:50)
--- NOTE | 2022-06-28 00:50 | ED GU-Female ---
General Chief Complaint: - Reproductive Stated Complaint: VAGINAL BLEEDING Nursing Triage Note: PT ARRIVAL TO ER VIA PRIVATE VEHICLE FROM HOME WITH COMPLAINT OF HEAVY VAGINAL BLEEDING SINCE THIS AM. PT STATES THAT SINCE 2129 SHE HAS BEEN BLEEDING THROUGH MORE THEN 2 PADS PER HOUR. PT STATES THAT SHE HAS BEEN PASSING LARGE CLOTS. Source: patient (VERY DIFFICULT HISTORIAN, SPEECH IS VERY RAPID AND ERRATIC, GIVES MUCH CONVOLUTED AND INCONSISTENT INFORMATION--GIVES CONFLICTING INFORMATION TO ME AND RN. APPEARS TO BE UNDER THE INFLUENCE OF SOME SUBSTANCE/S) History of Present Illness Date Seen by Provider: Jun 27, 2022 Time Seen by Provider: 23:38 Initial Comments PT ARRIVES VIA POV FROM HOME WITH A MALE SHE STATES SHE STARTED VAGINAL SPOTTING YESTERDAY MORNING. BLEEDING BECAME HEAVIER THIS AFTERNOON, THEN SHE WAS TAKING A SHOWER AROUND 0 TONIGHT, AND STARTED PASSING "BASEBALL SIZE CLOTS" SINCE THEN SHE STATES SHE HAS BEEN GOING THROUGH MORE THAN 2 PADS AN HOUR SINCE 1900 TONIGHT SHE STATES HER PERIODS ARE NORMALLY HEAVY, BUT NEVER THIS BAD SHE IS HAVING PRESSURE IN HER PELVIC/LOWER ABDOMEN AREA, BUT NOT HAVING ANY ACTUAL PAIN OR CRAMPING. SHE HAS NO IDEA WHEN HER LAST MENSTRUAL PERIOD WAS. SHE THINKS IT MIGHT HAVE BEEN SOMETIME AROUND THE FIRST PART OF MAY "OR MAYBE IT WAS "--SHE STATES SHE ONLY SPOTTED FOR A COUPLE OF DAYS. SHE STATES SHE IS NOT ON ANY CONTROL. THEN STATES SHE THINKS MAYBE "JESICA" WITH [facility] "MIGHT HAVE PUT A GEL RING IN THERE SOMETIME--"A NUVA RING" --"SHE SAID IT WOULD LAST 10 YEARS" "BUT I DON'T KNOW IF SHE DID OR NOT" UNKNOWN IF SHE WAS HAVING VAGINAL DISCHARGE PRIOR TO ONSET OF VAGINAL BLEEDING SHE DOES ADMIT THAT SHE HAS PAIN WITH INTERCOURSE. PT STATES "I HAVE THIS 5 INCH CYST IN MY UTERUS AND IT STAYS A POLYP WHEN I GET IT DRAINED" "THE POLYP WOULD FILL UP EVERY TIME I GOT " "THEN IT WOULD DRAIN" PT STATES SHE IS AB1--D&C X 1 STATES HE JUST MOVED TO [facility] FROM [place] [facility] [place] "8 MONTHS AGO" INITIALLY STATED SHE DID NOT HAVE A DR ANYWHERE--THEN LATER STATES SHE HAS BEEN TO [facility]. Allergies and Home Medications Allergies Coded Allergies: No Known Drug Allergies (Unverified , 06/28/22) Patient Home Medication List Home Medication List Reviewed: Yes Doxycycline Hyclate (Doxycycline Hyclate) 100 Mg Tablet, 100 MG PO BID Prescribed by: MARTÍN POND on 06/28/2249 Metronidazole (Metronidazole) 500 Mg Tablet, 500 MG PO QID Prescribed by: MARTÍN POND on 06/28/2249 Review of Systems Review of Systems Constitutional: no symptoms reported Respiratory: no symptoms reported Cardiovascular: no symptoms reported Gastrointestinal: see HPI Genitourinary: see HPI Musculoskeletal: no symptoms reported Skin: no symptoms reported Psychiatric/Neurological: See HPI Past Mupjrii-Ucogyr-Tnvbve Hx Patient Social History Tobacco Use?: Yes Tobacco type used: Cigarettes Smoking Status: Current Everyday Smoker Use of E-Cig and/or Vaping dev: No Substance use?: Yes Substance type: Amphetamines, Methamphetamine, Marijuana Additional substance use comme: COCAINE Alcohol Use?: Yes Alcohol type: Beer, Hard Liquor Alcohol Frequency: Couple times a week Pt feels they are or have been: No Immunizations Up To Date Influenza Vaccine Up-to-Date: No; Not Current Past Medical History Surgeries: Yes (D&C) Respiratory: Yes Asthma Cardiac: No Neurological: No Reproductive Disorders: Yes (BUT PT DOES NOT KNOW WHAT KIND) Genitourinary: No Gastrointestinal: No Musculoskeletal: No Endocrine: No HEENT: No Cancer: No Psychosocial: Yes (POLYSUBSTANCE ABUSE. ) Integumentary: No Blood Disorders: No Family Medical History SOCIAL HISTORY: -SMOKES 2 PPD SINCE AGE 15, ALSO VAPES NICOTINE -ETOH--HEAVY/DAILY USE SINCE HIGH SCHOOL, NOW DRINKS "A COUPLE OF TIMES A WEEK" -DRUGS--EXTENSIVE DRUG USE--METH, COCAINE, THC. DENIES IV USE. STATES SHE SNORTS METH AND COCAINE, AND SMOKES MARIJUANA. Physical Exam Vital Signs Vital Signs - First Documented 06/27/22 23:18 Temp 36.7 Pulse 93 Resp 18 B/P (MAP) 142/100 (114) Pulse Ox 98 O2 Delivery Room Air Capillary Refill : Less Than 3 Seconds Height, Weight, BMI Height: '" Weight: lbs. oz. kg; BMI Method: General Appearance: WD/WN, no apparent distress, thin, other (REEKS OF MARIJUANA WELL CIGARETTES; SPEECH VERY RAPID, ERRATIC AND INCONSISTENT. CONSTANT MOVEMENTS OF ENTIRE BODY, APPEARS TO BE UNDER THE INFLUENCE OF SOME SUBSTANCE/S. ) HEENT: other (DENTAL DECAY) Neck: normal inspection Cardiovascular: regular rate, rhythm Respiratory: normal breath sounds Gastrointestinal: soft, tenderness (SUPRAPUBIC AREA) Pelvic: normal external exam; No lesions, No mass; tender w/ cervical motion, tender adnexa, tender uterus, other (THERE IS A VERY SCANT AMOUNT OF BLOOD IN VAGINAL CANAL, NO CLOTS. CERVIX DOES NOT HAVE ANY OBVIOUS LESIONS AND NO ACTIVE BLEEDING AT THIS TIME. THERE IS A STRING FROM THE CERIVCAL OS--TYPICAL APPEARANCE OF IUD STRING. THERE IS NO VISUALIZATION OF THE IUD ITSELF. CERVIX IS SLIGHTLY INFLAMED. 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 ) Progress/Results/Core Measures Suspected Sepsis SIRS Temperature: Pulse: 93 Respiratory Rate: 18 Laboratory Tests 06/27/22 23:50: White Blood Count 10.2 Blood Pressure 142 /100 Mean: 114 Laboratory Tests 06/27/22 23:50: Creatinine 0.75, INR Comment 1.0, Platelet Count 318, Total Bilirubin 0.9 Results/Orders Lab Results Laboratory Tests Test 06/27/22 23:50 06/28/22 00:30 Range/Units White Blood Count 10.2 4.3-11.0 10^3/uL Red Blood Count 4.63 3.80-5.11 10^6/uL Hemoglobin 11.6 11.5-16.0 g/dL Hematocrit 36 35-52 % Mean Corpuscular Volume 77 L 80-99 fL Mean Corpuscular Hemoglobin 25 25-34 pg Mean Corpuscular Hemoglobin Concent 32 32-36 g/dL Red Cell Distribution Width 16.7 H 10.0-14.5 % Platelet Count 318 130-400 10^3/uL Mean Platelet Volume 10.5 9.0-12.2 fL Immature Granulocyte % (Auto) 0 % Neutrophils (%) (Auto) 49 42-75 % Lymphocytes (%) (Auto) 39 12-44 % Monocytes (%) (Auto) 8 0-12 % Eosinophils (%) (Auto) 3 0-10 % Basophils (%) (Auto) 1 0-10 % Neutrophils # (Auto) 5.0 1.8-7.8 10^3/uL Lymphocytes # (Auto) 4.0 1.0-4.0 10^3/uL Monocytes # (Auto) 0.8 0.0-1.0 10^3/uL Eosinophils # (Auto) 0.4 H 0.0-0.3 10^3/uL Basophils # (Auto) 0.1 0.0-0.1 10^3/uL Immature Granulocyte # (Auto) 0.0 0.0-0.1 10^3/uL Prothrombin Time 13.6 12.2-14.7 SEC INR Comment 1.0 0.8-1.4 Activated Partial Thromboplast Time 31 24-35 SEC Urine Color RED H Urine Clarity TURBID H Urine pH 7.0 5-9 Urine Specific [place] 1.025 H 1.016-1.022 Urine Protein 3+ H NEGATIVE Urine Glucose (UA) NEGATIVE NEGATIVE Urine Ketones 3+ H NEGATIVE Urine Nitrite POSITIVE H NEGATIVE Urine Bilirubin 1+ H NEGATIVE Urine Urobilinogen 2.0 < = 1.0 MG/DL Urine Leukocyte Esterase 2+ H NEGATIVE Urine RBC (Auto) 3+ H NEGATIVE Urine RBC TNTC H /HPF Urine WBC 2-5 /HPF Urine Squamous Epithelial Cells 2-5 /HPF Urine Crystals NONE /LPF Urine Bacteria MODERATE H /HPF Urine Casts NONE /LPF Urine Mucus NEGATIVE /LPF Urine Culture Indicated YES Sodium Level 137 135-145 MMOL/L Potassium Level 3.2 L 3.6-5.0 MMOL/L Chloride Level 102 98-107 MMOL/L Carbon Dioxide Level 22 21-32 MMOL/L Anion Gap 13 5-14 MMOL/L Blood Urea Nitrogen 14 7-18 MG/DL Creatinine 0.75 0.60-1.30 MG/DL Estimat Glomerular Filtration Rate 114 BUN/Creatinine Ratio 19 Glucose Level 92 70-105 MG/DL Calcium Level 9.8 8.5-10.1 MG/DL Corrected Calcium 8.5-10.1 MG/DL Total Bilirubin 0.9 0.1-1.0 MG/DL Aspartate Amino Transf (AST/SGOT) 24 5-34 U/L Alanine Aminotransferase (ALT/SGPT) 15 0-55 U/L Alkaline Phosphatase 88 40-136 U/L Total Protein 8.1 6.4-8.2 GM/DL Albumin 4.6 H 3.2-4.5 GM/DL Serum Test, Qualitative NEGATIVE NEGATIVE Urine Opiates Screen NEGATIVE NEGATIVE Urine Oxycodone Screen NEGATIVE NEGATIVE Urine Methadone Screen NEGATIVE NEGATIVE Urine Propoxyphene Screen NEGATIVE NEGATIVE Urine Barbiturates Screen NEGATIVE NEGATIVE Ur Tricyclic Antidepressants Screen NEGATIVE NEGATIVE Urine Phencyclidine Screen NEGATIVE NEGATIVE Urine Amphetamines Screen POSITIVE H NEGATIVE Urine Methamphetamines Screen POSITIVE H NEGATIVE Urine Benzodiazepines Screen NEGATIVE NEGATIVE Urine Cocaine Screen NEGATIVE NEGATIVE Urine Cannabinoids Screen POSITIVE H NEGATIVE Serum Alcohol < 10 <10 MG/DL My Orders Orders - MARTÍN POND DO Ed Iv/Invasive Line Start (06/27/22 23:39) Monitor-Rhythm Ecg Trace Only (06/27/22:39) Cbc With Automated Diff (06/27/22:39) Comprehensive Metabolic Panel (06/27/22:39) Hcg,Qualitative Serum (06/27/22:39) Protime With Inr (06/27/22:39) Partial Thromboplastin Time (06/27/22:39) Ua Culture If Indicated (06/27/22 23:39) Alcohol (06/28/22 00:05) Drug Screen Stat (Urine) (06/28/22 00:05) Neisseria Gonorrhea Swab (06/28/22 00:32) Chlam Dna Probe (06/28/22 00:32) Genital Culture (06/28/22 00:32) Wet Prep (06/28/22 00:32) Vic Prep (06/28/22 00:32) Ceftriaxone 1 Gm Pre-Mix (Rocephin 1 Gm (06/28/22 00:32) Azithromycin Tablet (Zithromax Tablet) (06/28/22 00:32) Urine Culture (06/27/22 23:50) Vital Signs/I&O 06/27/22 06/28/22 23:18 01:00 Temp 36.7 Pulse 93 87 Resp 18 18 B/P (MAP) 142/100 (114) 131/93 Pulse Ox 98 99 O2 Delivery Room Air Room Air Capillary Refill : Less Than 3 Seconds Blood Pressure Mean: 114 Progress Note : Progress Note PT DID NOT USE ANY PADS OR HAVE ANY ACTIVE BLEEDING DURING ER STAY PT STATES SHE IS ALWAYS ANEMIC AND IS SUPPOSED TO BE TAKING IRON, BUT DOES NOT . GIVEN ROCEPHIN IV AND ZITHROMAX PO ANTICIPATED COURSE, NEED FOR FOLLOW UP AND RETURN PRECAUTIONS DISCUSSED WITH PT Departure Impression Primary Impression: VAGINAL BLEEDING Additional Impressions: UTI (urinary tract infection) Methamphetamine use Marijuana use Disposition: HOME, SELF-CARE Condition: Stable Departure-Patient Inst. Decision time for Depature: 00:45 Referrals: NO,LOCAL PHYSICIAN (PCP/Family) Primary Care Physician Patient Instructions: IRREGULAR VAGINAL BLEEDING, Urinary Tract Infection, Adult (DC) Add. Discharge Instructions: NOTHING IN VAGINA--NO TAMPONS, DOUCHING OR INTERCOURSE--UNTIL YOU ARE RECHECKED AND CLEARED BY YOUR DR FOLLOW UP WITH YOUR [facility]ATION MANAGER IN [place] [address] [facility] NEXT WEEK FOR FURTHER CARE TYLENOL 1 GRAM PLUS MOTRIN 800 MG EVERY 6 HOURS NEEDED FOR PAIN LOTS OF CLEAR LIQUIDS NO METH OR MARIJUANA OR ANY OTHER DRUGS NOT PRESCRIBED TO YOU RETURN TO ER IF YOU ARE SOAKING MORE THAN 1 MAXI PAD AN HOUR. All discharge instructions reviewed with patient and/or family. Voiced understanding. Scripts Metronidazole (Metronidazole) 500 Mg Tablet 500 MG PO QID, #40 TAB 0 Refills Prov: MARTÍN POND DO 06/28/22 Doxycycline Hyclate (Doxycycline Hyclate) 100 Mg Tablet 100 MG PO BID, #20 TAB 0 Refills Prov: MARTÍN POND DO 06/28/22 MARTÍN POND DO Jun 28, 2022 00:50
[2022-06-28 01:00] VITALS: BP 131/93
== END 2022-06-28 01:10 | disposition home or self-care (01) ==
LOC: EDUNIT# 22:57 → ER 22:59
DX: N93.9 Abnormal uterine and vaginal bleeding, unspecified (principal); N39.0 Urinary tract infection, site not specified; F15.90 Other stimulant use, unspecified, uncomplicated; F12.90 Cannabis use, unspecified, uncomplicated; F17.210 Nicotine dependence, cigarettes, uncomplicated; Z28.310 Unvaccinated for COVID-19
CPT/HCPCS: 80053; 80306; 81000; 84703; 85025; 85610; 85730; 87070; 87077; 87088; 87186; 87205; 87210; 87220; 87491; 87591; 93041; 99283; G0480; 36415; 80320